=== PATIENT | female | born 1960 | race Caucasian/White ===

== ENCOUNTER → 2018-01-13 09:04 | Outpatient (CLI) | payer OTHER, SELFPAY ==
[2018-01-13 11:00] LABS: Anion Gap 6 (5-15); BUN 11 mg/dL (7-18); BUN/Creat Ratio 13.2 RATIO (10-20); Calcium,Total 8.9 mg/dL (8.5-10.1); Chloride 107 mmol/L (98-107); Creatinine, Serum 0.83 mg/dL (0.55-1.02); EST Glomerular Filtration Rate 75 mL/min (>60); Est Glom Filt Rate - Afr Amer 90 mL/min (>60); Glucose 109 mg/dL (74-106); Potassium 4.5 mmol/L (3.5-5.1); Sodium Level 142 mmol/L (136-145)
== END ==
PROVIDERS: Family Provider Family Medicine; PCP Family Medicine; Visit Provider Family Medicine
DX: I10 Essential (primary) hypertension (principal); E03.9 Hypothyroidism, unspecified
CPT/HCPCS: 36415; 80048; 84443

== ENCOUNTER → 2018-07-28 09:31 | Outpatient (CLI) | payer OTHER, SELFPAY ==
--- OUTSIDE RECORDS SUMMARY | 2018-09-22 04:23 | XMS RPT_ITS ---
:1960 Author Organization [facility] Care Team Providers Name Role Phone TESTTIM, IBRAHIMA Referring Unavailable TESTRAKE, IBRAHIMA Attending Unavailable ADI LERMA (PT) Attending Unavailable TESTRAKE, IBRAHIMA Referring Unavailable TESTRAKE, IBRAHIMA Attending Unavailable TESTRAKE, IBRAHIMA Referring Unavailable ADI LERMA (PT) Attending Unavailable TESTRAKE, IBRAHIMA Referring Unavailable GHANSHYAM SHANKAR (CNM) Referring Unavailable LISA TSANG (CERTIFIED ORTHOTIST/PEDORTHIST) Attending Unavailable Emerson Torres Attending Unavailable Emerson Torres Primary Care Unavailable Referred, Self Attending Unavailable Emerson Torres Primary Care Unavailable Emerson Torres Attending Unavailable Emerson Torres Primary Care Unavailable PROBLEMS PROBLEMS DATE TYPE CONDITION / CODE ATTENDING STATUS SOURCE 07/28/2018 Unknown 244.9 - Unspecified Emerson Torres Active [facility] 244.9(ICD-9) Repository 07/28/2018 Unknown E03.9 - Emerson Torres Active [place] Hypothyroidism, [facility] unspecified / Hospital E03.9(ICD-10) Repository 03/02/2018 Active Unknown / LISA TSANG Active [facility] UNK(Unknown) (CERTIFIED ORTHOTIST/PEDORTHIST) [facility] [place] Repository 02/07/2018 Active Encounter for other NA Active [facility] screening for [facility] malignant neoplasm [place] of breast / Repository Z12.39(ICD-10) 10/13/2017 Active Pain in right foot / NA Active [facility] M79.671(ICD-10) [facility] Repository PROCEDURES PROCEDURES No Procedure Records FoundRESULTS RESULTS THYROID STIM HORMONE Collected: 07/28/2018 Status: F Source: [place] (TSH) 9:32 AM [facility] REPOSITORY Order Comment: Order Date: 01/16/18 Order Info: 3016-3 - TSH TYPE CODE TESTS RESULT OUT OF RANGE REFERENCE UNITS LAB L501.9520 0.358-3.74 uIU/mL Normal TSH 2.90 Performed By: #### L501.9520 #### [facility] [address] [place], [address] CNOV Observed: 03/02/2018 Status: COMPLETED Source: [place] 8:30 AM [facility] REPOSITORY Office Visit (WOOB) NURA SONI ([id number]) 1960 F Date Time Provider Department 03/02/18 8:30 AM LISA TSANG (KD) [place] During your visit today, we recorded the following information about you: Blood pressure Weight Height 136/86 91.5 kg 1.568 m Lisa Tsang APRN.CNP 03/02/2018 9:17 AM Signed Nura Soni is a 57 year old who presents for her annual gynecologic exam without complaints. Daughter is peds DRAFTING TEACHER - graduated from [place] and moving to [place] for job. Postmenopausal: RONAN 2000 - uterus and ovaries removed HRT use: Vivelle dose History of abnormal pap: No Last mammogram: 2017 normal History of abnormal mammogram: No Sexually active: Yes Patient concerns for STD exposure: No. Time with current partner: long-term Pain with intercourse: No Postcoital bleeding: No Hot flashes: Yes, occasional Night sweats: Yes, occasional Vaginal dryness: Yes, uses lubricant Exercise: 3 times a week for 30 minutes. Type: walking Diet: tries to eat balanced diet Seatbelt use: Yes Obstetric History T2 L2 SAB2 TAB0 Ectopic0 Multiple0 Live Births0 PAST MEDICAL HISTORY Diagnosis Date - Broken ankle fracture - Broken foot - H/O thyroid nodule - Hypertension - Hypothyroid PAST SURGICAL HISTORY Procedure Laterality Date - HYSTEROSCOPY, DIAGNOSTIC (SEPARATE Hysteroscopy - PAST SURGICAL HISTORY OF 02/2013 repair foot/ankle fracture - REMOVAL ADENOIDS,PRIMARY,<12 Y/O Adenoidectomy - REMOVAL OF TONSILS,<12 Y/O Tonsillectomy - TOTAL ABDOM HYSTERECTOMY 2000 Hysterectomy, [facility] FAMILY HISTORY Problem Relation Age of Onset - Adopted: Yes - Other [Other] [OTHER] adopted unknown SOCIAL HISTORY Social History Substance Use Topics - Smoking status: Never Smoker - Smokeless tobacco: Never Used - Alcohol use 36.0 oz/week Comment: Occasionally REVIEW OF SYSTEMS Abdomen: No abdominal pain, nausea, vomiting, diarrhea, or constipation. No bloating, early satiety, indigestion, or increased flatulence. Bladder: No dysuria, gross hematuria, urinary frequency, urinary urgency, or incontinence Breast: No breast lumps, nipple d/c, overlying skin changes, redness or skin retraction Allergies and current medication updated:Yes EXAM: BP 136/86 Ht 5' 1.75 (1.57m) Wt 201 lb 12.8 oz (91.5kg) BMI 37.23 kg/(m2). GENERAL: pleasant, female in no apparent distress HEENT: Normocephalic, atraumatic, mucus membranes moist and no lesions NECK: Supple, full range of motion, no adenopathy and enlarged thyroid DERMATOLOGY: Normal, without lesions, non-icteric and non-hirsute BREAST: soft, non-tender, symmetric, no dominant mass, normal nipple-areolar complex, no lymphadenopathy and no nipple discharge CHEST: Normal inspiratory effort ABDOMEN: soft, non-tender and no masses PELVIC: external genitalia normal, normal Bartholin's glands, urethra, [place]'s glands, no vulvar lesions, physiologic discharge present, normal appearing perineal body and perianal region, cervix surgically absent BIMANUAL: no adnexal masses, non-tender and uterus surgically absent RECTOVAGINAL: deferred. NEURO: alert and oriented x3,exam grossly non-focal EXTREMITIES: normal ASSESSMENT/PLAN: 1) Health maintenance: Pap/HPV screening no longer needed Mammogram up to date Vivelle HRT - Low dose, discussed gradually attempt to discontinue, may cut. Vaginal dryness - Lubricant and Replens vaginal lubricant Nutrition, exercise and routine health maintenance exams reviewed. Calcium/Vitamin D supplementation information provided. Colon cancer screening: up to date with screening 2017 - 10 year interval 2) Follow up one year or sooner as needed Lisa Tsang APRN.CERTIFIED ORTHOTIST/PEDORTHIST Referring Provider: SELF [200] Allergies As of Date: 03/02/2018 (No Known Allergies) Date Reviewed: 03/02/2018 Reviewed by: Lisa (Kd) Trinh - Fully Assessed Reason for Visit: Well Woman [1463] Primary Visit Diagnosis:Encounter for gynecological examination (general) (routine) without abnormal findings [Z01.419] Other Visit Diagnosis:Postmenopausal HRT (hormone replacement therapy) [Z79.890] Order(s):estradiol (VIVELLE-DOT) 0.025 mg/24 hrApply 1 Patch as directed twice a week. ONE PER SKIN TWICE A WEEKDisp: 24 PatchRfl: 4 Prescriptions as of 03/02/2018 Sig: ESTRADIOL 0.025 MG/24 HR SEMI* Apply 1 Patch as directed twi* LEVOTHYROXINE 100 MCG TABLET Take 100 mcg by mouth daily b* LISINOPRIL 10 MG TABLET Take 10 mg by mouth once jazmin* CHOLECALCIFEROL (VITAMIN D3) * Take 1 tablet by mouth once d* * ASPIR-LOW 81 MG TABLET,DELAYE* Take one(1) tablet daily. 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 Sig: Apply 1 Patch as directed twice a week. ONE PER SKIN TWICE A WEEK Medications Discontinued During This Encounter multivitamin (DAILY VITAMIN) tablet 0 02/28/2017 03/02/2018 Class: Historical Med Route: ORAL Sig: Take 1 tablet by mouth once daily. Disc: Reason for discontinue is not on file. methylPREDNISolone (MEDROL, CHRISTINA,) 4 * 1 Pa* 0 10/13/2017 03/02/2018 Sig: Take as directed Patient not taking: Reported on 03/02/2018 Disc: Reason for discontinue is not on file. estradiol (VIVELLE-DOT) 0.025 mg/24 * 24 P* 4 02/28/2017 03/02/2018 Route: TRANSDERMAL Sig: Apply 1 Patch as directed twice a week. ONE PER SKIN TWICE A WEEK Disc: Reason for discontinue is not on file. Disposition: Return in 1 year (on 03/02/2019) for Annual Exam. Follow-up and Disposition History Recorded Encounter Status:Closed by ILSA TSANG on 03/02/18 PROGRESS Observed: 03/02/2018 Status: COMPLETED Source: [place] 8:28 AM [facility] REPOSITORY HNO ID: [id number] Author: Lisa Tsang Service: (none) Author Type: Nurse Practitioner Type: Progress Notes Filed: 03/02/2018 9:17 AM Note Text: Nura Soni is a 57 year old who presents for her annual gynecologic exam without complaints. Daughter is peds DRAFTING TEACHER - graduated from [place] and moving to [place] for job. Postmenopausal: RONAN 2000 - uterus and ovaries removed HRT use: Vivelle dose History of abnormal pap: No Last mammogram: 2017 normal History of abnormal mammogram: No Sexually active: Yes Patient concerns for STD exposure: No. Time with current partner: long-term Pain with intercourse: No Postcoital bleeding: No Hot flashes: Yes, occasional Night sweats: Yes, occasional Vaginal dryness: Yes, uses lubricant Exercise: 3 times a week for 30 minutes. Type: walking Diet: tries to eat balanced diet Seatbelt use: Yes Obstetric History T2 L2 SAB2 TAB0 Ectopic0 Multiple0 Live Births0 PAST MEDICAL HISTORY Diagnosis Date - Broken ankle fracture - Broken foot - H/O thyroid nodule - Hypertension - Hypothyroid PAST SURGICAL HISTORY Procedure Laterality Date - HYSTEROSCOPY, DIAGNOSTIC (SEPARATE Hysteroscopy - PAST SURGICAL HISTORY OF 02/2013 repair foot/ankle fracture - REMOVAL ADENOIDS,PRIMARY,<12 Y/O Adenoidectomy - REMOVAL OF TONSILS,<12 Y/O Tonsillectomy - TOTAL ABDOM HYSTERECTOMY 2000 Hysterectomy, [facility] FAMILY HISTORY Problem Relation Age of Onset - Adopted: Yes - Other [Other] [OTHER] adopted unknown SOCIAL HISTORY Social History Substance Use Topics - Smoking status: Never Smoker - Smokeless tobacco: Never Used - Alcohol use 36.0 oz/week Comment: Occasionally REVIEW OF SYSTEMS Abdomen: No abdominal pain, nausea, vomiting, diarrhea, or constipation. No bloating, early satiety, indigestion, or increased flatulence. Bladder: No dysuria, gross hematuria, urinary frequency, urinary urgency, or incontinence Breast: No breast lumps, nipple d/c, overlying skin changes, redness or skin retraction Allergies and current medication updated:Yes EXAM: BP 136/86 Ht 5' 1.75 (1.57m) Wt 201 lb 12.8 oz (91.5kg) BMI 37.23 kg/(m2). GENERAL: pleasant, female in no apparent distress HEENT: Normocephalic, atraumatic, mucus membranes moist and no lesions NECK: Supple, full range of motion, no adenopathy and enlarged thyroid DERMATOLOGY: Normal, without lesions, non-icteric and non-hirsute BREAST: soft, non-tender, symmetric, no dominant mass, normal nipple-areolar complex, no lymphadenopathy and no nipple discharge CHEST: Normal inspiratory effort ABDOMEN: soft, non-tender and no masses PELVIC: external genitalia normal, normal Bartholin's glands, urethra, [place]'s glands, no vulvar lesions, physiologic discharge present, normal appearing perineal body and perianal region, cervix surgically absent BIMANUAL: no adnexal masses, non-tender and uterus surgically absent RECTOVAGINAL: deferred. NEURO: alert and oriented x3,exam grossly non-focal EXTREMITIES: normal ASSESSMENT/PLAN: 1) Health maintenance: Pap/HPV screening no longer needed Mammogram up to date Vivelle HRT - Low dose, discussed gradually attempt to discontinue, may cut. Vaginal dryness - Lubricant and Replens vaginal lubricant Nutrition, exercise and routine health maintenance exams reviewed. Calcium/Vitamin D supplementation information provided. Colon cancer screening: up to date with screening 2017 - 10 year interval 2) Follow up one year or sooner as needed RICHARD Sen Observed: 02/07/2018 Status: COMPLETED Source: [place] 4:51 PM [facility] REPOSITORY HNO ID: [id number] Author: Mammography Coordinator Service: (none) Author Type: Physician Type: Letter Filed: 02/08/2018 11:32 PM Note Text: February 07, 2018 PID: [id number] Nura Soni [address] [place] [address] Dear Ms. Soni, We are pleased to inform you that the results of your recent breast imaging exam on 02/07/2018 are normal. Your mammogram demonstrates that you have dense breast tissue, which could hide abnormalities. Dense breast tissue, in and of itself, is a relatively common condition. Therefore, this information is not provided to cause undue concern; rather, it is to raise your awareness and promote discussion with your health care provider regarding the presence of dense breast tissue in addition to other risk factors. Early detection of cancer is very important. We also understand recommendations regarding breast cancer screening are controversial. Please discuss with your primary care provider which strategy is best for you and whether a mammogram is right for you. Your imaging studies and report will be kept on file at [facility] as part of your permanent medical record and are available for your continuing care. Thank you for allowing us to help in meeting your health care needs. Sincerely, Dr. Izaguirre Interpreting Radiologist [facility] (Normal over 40) [facility] SCREENING Observed: 02/07/2018 Status: F Source: [place] 7:21 AM [facility] REPOSITORY * * *Final Report* * * DATE OF EXAM: Feb 07 2018 7:21AM [facility] 0581 - [facility] SCREENING / PROCEDURE REASON: Encounter for other screening for malignant neoplasm of breast * * * * Physician Interpretation * * * * RESULT: #[id number] - [facility] SCREENING BILATERAL DIGITAL SCREENING MAMMOGRAM WITH CAD: 02/07/2018 HISTORY: Screening Mammogram - patient reports NO breast symptoms /Priors available for comparison. RESULT: TECHNIQUE: The study was acquired using full field digital technology and interpreted from soft copy. Current study was also evaluated with a Computer Aided Detection (CAD). Comparison is made to exams dated: 01/17/2017 mammogram, 01/13/2016 mammogram, 01/09/2015 mammogram, 12/31/2013 mammogram, 12/26/2012 mammogram, and 11/09/2011 mammogram - [facility]. The tissue of both breasts is heterogeneously dense. This may lower the sensitivity of mammography. The parenchymal pattern and appearance of the breasts is unchanged from the prior exams taking into account differences in positioning and technique. No significant masses, calcifications, or other findings are seen in either breast. There has been no significant interval change. IMPRESSION: NEGATIVE There is no mammographic evidence of malignancy. A 1 year screening mammogram is recommended. Nydia velez/fco:02/07/2018 16:51:41 Hotel Front Desk Clerk: Melida COPELAND)(Christen), [facility] letter sent: Normal over 40 Mammogram BI-RADS: 1 Negative Hand Booked Folder And Stitcher: Fco Transcribe Date/Time: Feb 07 2018 7:09A Dictated by: NYDIA IZAGUIRRE MD This examination was interpreted and the report reviewed and electronically signed by: NYDIA IZAGUIRRE MD on Feb 07 2018 4:51PM EST [id number] BASIC METABOLIC Collected: 01/13/2018 Status: F Source: [place] PROFILE ([facility]) 9:07 AM [facility] REPOSITORY Order Comment: Order Date: 07/08/17 Order Info: [id number] - BMP Order Info: 3016-3 - TSH TYPE CODE TESTS RESULT OUT OF RANGE REFERENCE UNITS LAB L501.0100 74-106 mg/dL High GLU 109 Result Comment: Fasting Glucose result from 100 to 125 mg/dL suggests IMPAIRED HOMEOSTASIS per A.D.A. criteria. Please note revised GLUCOSE reference range effective 2017. LAB L501.1000 7-18 mg/dL Normal BUN 11 LAB L501.1100 0.55-1.02 mg/dL Normal CREAT,SERUM 0.83 Result Comment: The validity of the calculated GFR AND GFRAA in patients over 70 years has not been determined. Clinical correlation is essential. LAB L501.1110 >60 mL/min Normal EST GFR 75 Result Comment: Non- GFR Calc LAB L501.1115 >60 mL/min Normal EST GFR - AA 90 Result Comment: GFR Calc LAB L501.1300 10-20 RATIO Normal BUN/CRE 13.2 LAB L501.2200 8.5-10.1 mg/dL CA Normal 8.9 LAB L501.5300 136-145 mmol/L NA Normal 142 LAB L501.5600 3.5-5.1 mmol/L K Normal 4.5 LAB L501.5900 98-107 mmol/L CL Normal 107 LAB L501.6100 21.0-32.0 mmol/L Normal CO2 29.0 LAB L501.6200 5-15 Normal GAP 6 Performed By: #### L500.2500, L501.9520 #### [facility] [address] [place], [place], [address] THYROID STIM HORMONE Collected: 01/13/2018 Status: F Source: [place] (TSH) 9:07 AM [facility] REPOSITORY Order Comment: Order Date: 07/08/17 Order Info: [id number] - BMP Order Info: 3016-3 - TSH TYPE CODE TESTS RESULT OUT OF RANGE REFERENCE UNITS LAB L501.9520 0.358-3.74 uIU/mL High TSH 4.60 Performed By: #### L500.2500, L501.9520 #### [facility] [address] [facility] [place], [address] PROGRESS Observed: 11/25/2017 Status: COMPLETED Source: [place] 10:[address] [facility] [place] REPOSITORY HNO ID: [id number] Author: Adi (Pt) Maria Guadalupe Service: (none) Author Type: Physical Therapist Type: Progress Notes Filed: 11/25/2017 10:49 AM Note Text: [facility] DME ISSUE NOTE Patient identified by name and date: Yes SUBJECTIVE: Nura Soni is a 57 year old female seen today for fitting and pickup of custom foot orthotics. DME Delivery: Pt was educated on wear schedule and care of custom foot orthotics. Pt was educated on the option of having orthotics refurbished as needed in the future as long as shell is performing it's intended function well. Pt was educated on approximate cost of refurbishing orthotics and an approximate time frame when this might be necessary. Pt was urged to follow the wear schedule and to call with any questions or concerns. Pt was instructed to start with wearing orthotics one hour the first day and then to add one hour of wear time per day until realtime captioner wear is achieved. Pt was educated on how to remove insoles from shoes and then place orthotics in shoes. The fit of orthotics was assessed with pt standing, with and without shoes. The comfort of orthotics was assessed with pt standing and walking with orthotics in shoes. Pt denied any rubbing or pinching and felt that fit of custom orthotics was correct. Contact information for this therapist was provided to patient. Custom biomechanical foot orthotics with serial number: #[id number] were issued to patient and proof of receipt form signed by pt and therapist. All specifications for custom foot orthotics can be found in orthotic evaluation visit note. Education: Learning preferences: Explanation, Demonstration, Performance and Printed Materials Barriers: No barriers Learning/educational needs: Brace Fit Body mechanics Education Provided: See Treatment Below Audience: Patient Method of education: Explanation, Demonstration, Performance and Printed Materials Response: Verbalized understanding Planned Interventions: Follow up as needed for brace fitting/issues. Billing:[facility]: Equipment: [id number] pair of custom foot orthotics No charge for time. 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] Other Visit Diagnoses:Metatarsalgia of right foot [M77.41] Right foot pain [M79.671] Allergies As of Date: 11/25/2017 (No Known Allergies) Date Reviewed: 11/24/2017 Reviewed by: Denise Faith RN - Fully Assessed Prescriptions as of 11/25/2017 Sig: METHYLPREDNISOLONE 4 MG TABLE* Take as directed LEVOTHYROXINE 100 MCG TABLET Take 100 mcg by mouth daily b* LISINOPRIL 10 MG TABLET Take 10 mg by mouth once jazmin* MULTIVITAMIN TABLET Take 1 tablet by mouth once d* CHOLECALCIFEROL (VITAMIN D3) * Take 1 tablet by mouth once d* ESTRADIOL 0.025 MG/24 HR SEMI* Apply 1 Patch as directed twi* * ASPIR-LOW 81 MG TABLET,DELAYE* Take one(1) tablet daily. * FOLIC ACID 400 MCG TABLET Three tablets one time daily * CALCIUM 600 600 MG TABLET Take one(1) tablet twice jazmin* * DAILY MULTIVITAMIN TABLET Progress Notes: Adi Lerma PT 11/25/2017 10:49 AM Signed [facility] DME ISSUE NOTE Patient identified by name and date: Yes SUBJECTIVE: Nura Soni is a 57 year old female seen today for fitting and pickup of custom foot orthotics. DME Delivery: Pt was educated on wear schedule and care of custom foot orthotics. Pt was educated on the option of having orthotics refurbished as needed in the future as long as shell is performing it's intended function well. Pt was educated on approximate cost of refurbishing orthotics and an approximate time frame when this might be necessary. Pt was urged to follow the wear schedule and to call with any questions or concerns. Pt was instructed to start with wearing orthotics one hour the first day and then to add one hour of wear time per day until realtime captioner wear is achieved. Pt was educated on how to remove insoles from shoes and then place orthotics in shoes. The fit of orthotics was assessed with pt standing, with and without shoes. The comfort of orthotics was assessed with pt standing and walking with orthotics in shoes. Pt denied any rubbing or pinching and felt that fit of custom orthotics was correct. Contact information for this therapist was provided to patient. Custom biomechanical foot orthotics with serial number: #[id number] were issued to patient and proof of receipt form signed by pt and therapist. All specifications for custom foot orthotics can be found in orthotic evaluation visit note. Education: Learning preferences: Explanation, Demonstration, Performance and Printed Materials Barriers: No barriers Learning/educational needs: Brace Fit Body mechanics Education Provided: See Treatment Below Audience: Patient Method of education: Explanation, Demonstration, Performance and Printed Materials Response: Verbalized understanding Planned Interventions: Follow up as needed for brace fitting/issues. Billing:[facility]: Equipment: L3020 pair of custom foot orthotics No charge for time. Total time: 15 minutes Adi Lerma PT Letter Text [address] [place] [address] PROOF OF ORDER AND PRESCRIPTION RECEIPT November 25, 2017 Quantity: 1 Archana Soni Item(s): Custom Foot Orthotics- L3020 [id number] I have received this date: November 25, 2017. That has been prescribed by: Dr. Ibrahima Daily I have been informed that I can purchase this product elsewhere, however, I have elected to receive the above listed new durable medical equipment as prescribed. I have been informed that in the event I received Diabetic Shoes, they can not be returned and are not refundable. I have been given instruction on the use of the custom foot orthotic device indicated above and understand the intended purpose as well as limitations of the device. I also understand that the [facility] will not be responsible for any modifications to this device not ordered by the prescribing freight representative(s) of the [facility]. I understand that should I have any additional questions or concerns to call the telephone number listed above for assistance Signature of Patient/Recipient or Authorized Quality Audit Representative Date Signature of [facility] Quality Audit Representative Date [employer] Federal Guidelines: [email or web address] 11/29/05 A copy of this letter has been given to the above mentioned patient. PROGRESS Observed: 11/24/2017 Status: COMPLETED Source: [place] 7:[address] [facility] REPOSITORY HNO ID: [id number] Author: Ibrahima Daily Service: (none) Author Type: Physician Type: Progress Notes Filed: 11/24/2017 8:02 AM Note Text: Follow up podiatric office visit for: Chief Complaint: This 57 year old who presents for follow up:right foot pain. Patient had pain to lateral aspect of right foot. She has been using otc inserts and took the oral steroid. She feels the over the counter insert has helped. She is scheduled to get custom inserts tomorrow. She states that there is no pain to right foot. PAIN EVALUATION No data found. No results found for: HBA1C PCP: Emerson Torres MD PAST MEDICAL HISTORY Diagnosis Date - Broken ankle fracture - Broken foot - H/O thyroid nodule - Hypertension - Hypothyroid Current Outpatient Prescriptions: methylPREDNISolone (MEDROL, CHRISTINA,) 4 mg Dose-Pack Take as directed levothyroxine (SYNTHROID) 100 mcg tablet Take 100 mcg by mouth daily before breakfast. lisinopril (ZESTRIL, PRINIVIL) 10 mg tablet Take 10 mg by mouth once daily. multivitamin (DAILY VITAMIN) tablet Take 1 tablet by mouth once daily. cholecalciferol (VITAMIN D-3) 5,000 unit tab Take 1 tablet by mouth once daily. estradiol (VIVELLE-DOT) 0.025 mg/24 hr Apply 1 Patch as directed twice a week. ONE PER SKIN TWICE A WEEK aspirin(ASPIR-LOW 81 MG TAB) Take one(1) tablet daily. FOLIC ACID 400 MCG TAB Three tablets one time daily CALCIUM 600 600 MG TAB Take one(1) tablet twice daily. DAILY MULTIVITAMIN TAB No current facility-administered medications for this visit. ALLERGIES No Known Allergies PAST SURGICAL HISTORY Procedure Laterality Date - HYSTEROSCOPY, DIAGNOSTIC (SEPARATE Hysteroscopy - PAST SURGICAL HISTORY OF 02/2013 repair foot/ankle fracture - REMOVAL ADENOIDS,PRIMARY,<12 Y/O Adenoidectomy - REMOVAL OF TONSILS,<12 Y/O Tonsillectomy - TOTAL ABDOM HYSTERECTOMY 2000 Hysterectomy, KAMLA Physical Exam: Constitutional: Pt is a well developed 57 year old female who is alert, oriented, cooperative and in no apparent distress. OBJECTIVE: NVSI unchanged from previous visit. Dermatological: Nails 1-5 b/l are normal. Webspaces clean and dry 1-4 b/l. Skin appears well hydrated and supple. good color, texture, turgor. No open lesions present. No callosities present. Musculoskeletal/Orthopaedic: Patient has no pain to palpation of right foot rom of right foot and ankle is full without pain High arch noted to right foot ASSESSMENT: (Q66.7) Pes cavus of right foot (primary encounter diagnosis) (M79.671) Pain in right foot PLAN: 1. History and physical examination completed today. 2. Patient pain has resolved with otc inserts and oral steroid. She has no pain currently. She is scheduled to receive custom inserts tomorrow. She was educated on proper breaking in of the orthotics. 3. If pain remains absent, she can f/u prn. Ibrahima Daily DPM CNOV Observed: 11/24/2017 Status: COMPLETED Source: [place] 7:40 AM [facility] REPOSITORY Office Visit (PODIWS) NURA SONI ([id number]) 1960 F Date Time Provider Department 11/24/17 7:40 AM IBRAHIMA DAILY During your visit today, we recorded the following information about you: Ibrahima Daily DPM 11/24/2017 8:02 AM Signed Follow up podiatric office visit for: Chief Complaint: This 57 year old who presents for follow up:right foot pain. Patient had pain to lateral aspect of right foot. She has been using otc inserts and took the oral steroid. She feels the over the counter insert has helped. She is scheduled to get custom inserts tomorrow. She states that there is no pain to right foot. PAIN EVALUATION No data found. No results found for: HBA1C PCP: Emerson Torres MD PAST MEDICAL HISTORY Diagnosis Date - Broken ankle fracture - Broken foot - H/O thyroid nodule - Hypertension - Hypothyroid Current Outpatient Prescriptions: methylPREDNISolone (MEDROL, CHRISTINA,) 4 mg Dose-Pack Take as directed levothyroxine (SYNTHROID) 100 mcg tablet Take 100 mcg by mouth daily before breakfast. lisinopril (ZESTRIL, PRINIVIL) 10 mg tablet Take 10 mg by mouth once daily. multivitamin (DAILY VITAMIN) tablet Take 1 tablet by mouth once daily. cholecalciferol (VITAMIN D-3) 5,000 unit tab Take 1 tablet by mouth once daily. estradiol (VIVELLE-DOT) 0.025 mg/24 hr Apply 1 Patch as directed twice a week. ONE PER SKIN TWICE A WEEK aspirin(ASPIR-LOW 81 MG TAB) Take one(1) tablet daily. FOLIC ACID 400 MCG TAB Three tablets one time daily CALCIUM 600 600 MG TAB Take one(1) tablet twice daily. DAILY MULTIVITAMIN TAB No current facility-administered medications for this visit. ALLERGIES No Known Allergies PAST SURGICAL HISTORY Procedure Laterality Date - HYSTEROSCOPY, DIAGNOSTIC (SEPARATE Hysteroscopy - PAST SURGICAL HISTORY OF 02/2013 repair foot/ankle fracture - REMOVAL ADENOIDS,PRIMARY,ANDlt;11 Y/O Adenoidectomy - REMOVAL OF TONSILS,ANDlt;11 Y/O Tonsillectomy - TOTAL ABDOM HYSTERECTOMY 2000 Hysterectomy, TAHBSO Physical Exam: Constitutional: Pt is a well developed 57 year old female who is alert, oriented, cooperative and in no apparent distress. OBJECTIVE: NVSI unchanged from previous visit. Dermatological: Nails 1-5 b/l are normal. Webspaces clean and dry 1-4 b/l. Skin appears well hydrated and supple. good color, texture, turgor. No open lesions present. No callosities present. Musculoskeletal/Orthopaedic: Patient has no pain to palpation of right foot rom of right foot and ankle is full without pain High arch noted to right foot ASSESSMENT: (Q66.7) Pes cavus of right foot (primary encounter diagnosis) (M79.671) Pain in right foot PLAN: 1. History and physical examination completed today. 2. Patient pain has resolved with otc inserts and oral steroid. She has no pain currently. She is scheduled to receive custom inserts tomorrow. She was educated on proper breaking in of the orthotics. 3. If pain remains absent, she can f/u prn. Ibrahima Daily DPM Referring Provider: IBRAHIMA DAILY [[id number]] Allergies As of Date: 11/24/2017 (No Known Allergies) Date Reviewed: 11/24/2017 Reviewed by: Denise Faith RN - Fully Assessed Reason for Visit: Recheck [92] Cmt: 6 wk f/u R foot pain Primary Visit Diagnosis:Pes cavus of right foot [Q66.7] Other Visit Diagnosis:Pain in right foot [M79.671] Prescriptions as of 11/24/2017 Sig: METHYLPREDNISOLONE 4 MG TABLE* Take as directed LEVOTHYROXINE 100 MCG TABLET Take 100 mcg by mouth daily b* LISINOPRIL 10 MG TABLET Take 10 mg by mouth once jazmin* MULTIVITAMIN TABLET Take 1 tablet by mouth once d* CHOLECALCIFEROL (VITAMIN D3) * Take 1 tablet by mouth once d* ESTRADIOL 0.025 MG/24 HR SEMI* Apply 1 Patch as directed twi* * ASPIR-LOW 81 MG TABLET,DELAYE* Take one(1) tablet daily. 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 Follow-up and Disposition History Recorded Encounter Status:Closed by IBRAHIMA DAILY DPM on 11/24/17 PROGRESS Observed: 10/27/2017 Status: COMPLETED Source: [place] 3:[address] [facility] REPOSITORY HNO ID: [id number] Author: Adi (Claudio Lerma Service: (none) Author Type: Physical Therapist Type: Progress Notes Filed: 10/27/2017 4:57 PM Note Text: Episode Visit Count: 1 Therapist That Will Oversee The Plan Of Care: Adi Lerma PT Start of Care Date: 10/27/17 Onset Date: 10/06/17 Patient Identified by Name and Date of : Yes REHABILITATION AND SPORTS THERAPY PHYSICAL THERAPY EVALUATION PLAN OF CARE: Assessment: Nura Soni presents with the chief complaint of R foot pain that occurs with prolonged standing, prolonged walking and exercising. She presents with impairments of abnormal functional biomechanics of feet and ankles resulting in pain on R side with impact of exercise. She may benefit from skilled therapy services to improve functional biomechanics of B feet via custom foot orthotics. Prognosis: Excellent Excellent due to: current objective clinical presentation;acuteness of injury;good overall health status;positive past response to therapy;good support system/ coping skills Goals for Episode of Care: created on 10/27/17 through 12/08/17 Pt will be educated on proper wear schedule and care of custom biomechanical foot orthotics Pt will be provided with custom biomechanical B foot orthotics that improve foot and ankle biomechanics as intended with proper fit and function. Planned Interventions, Frequency, and Duration: Current Frequency: 1 visit Duration: 1 visit (fitting and pickle sorter of orthotics once they arrive.) Total Number of Visits Planned: 2 (evaluation and fitting visit) Patient to be see for Planned Treatment Interventions: Orthosis / DME;Patient/Family/Caregiver Education;Body Mechanics Training;Gait Training PLAN FOR NEXT VISIT: fitting and pickle sorter of custom orthotics Patient demonstrates good understanding of plan of care and treatment. The above goals and plan of care were discussed and agreed upon by patient/family. SUBJECTIVE: Nura Soni is a 57 year old female seen today for constant pain in dorsum of foot at met heads, along lateral border of R foot that is all aggravated by prlonged standing, walking and exercise. Functional Limitations: standing;walking (exercise) Prior Level of Function: Independent without limitations Patient Goals: resume exercise without pain Intake Information: Prescription present Previous Treatment: Self prescribed exercises (off the shelf orthotics from the past.) Pain Score: 1/10 (1/10 currently and 2-3/10 when aggravated) Pain Location: Foot - Right Description: Aching;Dull Frequency: Continuous (constant but varies in intensity) Post Treatment Pain Score: No Change Pain Location: Foot - Right OBJECTIVE MEASURES WITH LEVEL OF FUNCTION: Plantar Callus Pattern: Right:none significant Left: medial aspect of met head Supine: ROM: Ankle Dorsiflexion: Right: AROM:10 degrees and AROM Left:12 degrees Calcaneal eversion: Right: very limited Left: very limited Hallux dorsiflexion: Open chain right: >65 left: >65 Closed chain right: >9 left: >9 Alignment: Rest: Medial arch appearance: Right:High Left:High Equinus: Right:forefoot Left:forefoot Prone: Alignment: Subtalar neutral: Right: rearfoot: 6 degrees varus Forefoot:6 degrees varus Left: Rearfoot:2 degrees varus Forefoot: 4 degrees varus First Ray Position: Right: pf Left: pf First Ray Mobility: Right: semi-rigid Left:semi-rigid WEIGHT BEARING: Alignment: Rest: Medial arch appearance: Right: High Left High Calcaneal stance position: Right: rectus Left everted Knee position: Right: Straight Left Straight Subtalar Neutral: Medial arch appearance: Right High Left:High Calcaneal stance position: Right: inverted Left: rectus Forefoot position: Right: flat on ground Left: flat on ground Knee position: Right: straight Left straight Mobility: Hallux dorsiflexion Closed chain: Right: >9 Left >9 Midtarsal Mobility: (navicular drop) Right: hypo <6mm Left:hypo <6mm Rearfoot excursion: Right:4-6 norm Left: <4 hypo FUNCTIONAL EVALUATION: Balance(SL): ability/quality Right: N/T and no posting planned after discussion with referring provider Left: N/T and no posting planned after discussion with referring provider Gait Assessment: Walking: no deviations at this time Running: not tested but pt reports right foot pain Orthotic Design Request Shoe size: 7. Weight: 200 pounds. Orthotic (shell): Sport Polypropylene 4mm Plate Specifications: Heel Cup Deep (15mm), Device Width Bisect 1st Posting: right: none left: none Additions: none Padding: Type: Poron STD Thickness:1/8 Padding Length:heels to toes Accommodations: none Top Covers: Material: leatherette STD Length:to toes Classification of foot type: Forefoot equinus Education: Education Learning Preferences: Demonstration;Explanation;Performance;Printed Materials Barriers: None Learning/educational needs: Employee Relations Specialist;Gait Training;Plan of Care Education Provided: Yes, see treatment interventions for education provided Education Provided To: Patient Education Mode/Type: Demonstration;Explanation/Discussion Response to Education/Teach Back: States/Identifies;Requires Review/Additional Education TREATMENT: Evaluation Orthotics Management and Training: A thorough and complete biomechanical assessment completed and all results explained to pt in detail. Pt. was educated on the anatomy of affected area, possible source of symptoms and rationale for proposed treatment plan. A variety of different sized wedges were used as trials for posting at both forefoot and rearfoot. Pt ability with single leg stance and single leg squats was tested without wedges and compared to each trial with different size wedges. Once stability was achieved and biomechanics improved, wedge size recorded for future posting prescription. With patient prone, subtalar neutral position plaster casts were made of bilateral feet. These casts and and all supporting documentation was prepared for shipment to lab so that custom foot orthotics can be fabricated. Pt was educated on the process that we will follow once custom orthotics arrive in this department and all of the patient's questions were answered. Skilled Intervention: Clinical knowledge and skills required for custom orthotic fabrication and wearing schedule Patient/Family/Caregiver Education: Precautions, purpose and use of orthosis Discussed management of any symptoms related to wearing the orthosis Billing: [facility]: Evaluation - Moderate Complexity (87972) Orthotics Management and Training (20420): 1:1 time: 30 minutes (2 units: 23-37 mins) Total time: 75 minutes Adi Lerma PT CNTHERAPY Observed: 10/27/2017 Status: COMPLETED Source: [place] 2:45 PM [facility] REPOSITORY OT/PT/Speech Visit (PTWS) NURA SONI ([id number]) 1960 F Date Time Provider Department 10/27/17 2:45 PM ADI LERMAPT) PTWS Date Time Provider Department Center 10/27/2017 2:45 PM [id number], BRENT (PT) PTWS [facility] JAYASHREE Reason for Visit: PT Eval [517] Patient Education [91] Primary Visit Diagnosis:Metatarsalgia of right foot [M77.41] Other Visit Diagnoses: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 * FOLIC ACID 400 MCG TABLET Three tablets one time daily * CALCIUM 600 600 MG TABLET Take one(1) tablet twice jazmin* * DAILY MULTIVITAMIN TABLET Progress Notes: Adi Lerma PT 10/27/2017 4:57 PM Signed Episode Visit Count: 1 Therapist That Will Oversee The Plan Of Care: Adi Lerma PT Start of Care Date: 10/27/17 Onset Date: 10/06/17 Patient Identified by Name and Date of : Yes REHABILITATION AND SPORTS THERAPY PHYSICAL THERAPY EVALUATION PLAN OF CARE: Assessment: Nura Soni presents with the chief complaint of R foot pain that occurs with prolonged standing, prolonged walking and exercising. She presents with impairments of abnormal functional biomechanics of feet and ankles resulting in pain on R side with impact of exercise. She may benefit from skilled therapy services to improve functional biomechanics of B feet via custom foot orthotics. Prognosis: Excellent Excellent due to: current objective clinical presentation;acuteness of injury;good overall health status;positive past response to therapy;good support system/ coping skills Goals for Episode of Care: created on 10/27/17 through 12/08/17 Pt will be educated on proper wear schedule and care of custom biomechanical foot orthotics Pt will be provided with custom biomechanical B foot orthotics that improve foot and ankle biomechanics as intended with proper fit and function. Planned Interventions, Frequency, and Duration: Current Frequency: 1 visit Duration: 1 visit (fitting and pickle sorter of orthotics once they arrive.) Total Number of Visits Planned: 2 (evaluation and fitting visit) Patient to be see for Planned Treatment Interventions: Orthosis / DME;Patient/Family/Caregiver Education;Body Mechanics Training;Gait Training PLAN FOR NEXT VISIT: fitting and pickle sorter of custom orthotics Patient demonstrates good understanding of plan of care and treatment. The above goals and plan of care were discussed and agreed upon by patient/family. SUBJECTIVE: Nura Soni is a 57 year old female seen today for constant pain in dorsum of foot at met heads, along lateral border of R foot that is all aggravated by prlonged standing, walking and exercise. Functional Limitations: standing;walking (exercise) Prior Level of Function: Independent without limitations Patient Goals: resume exercise without pain Intake Information: Prescription present Previous Treatment: Self prescribed exercises (off the shelf orthotics from the past.) Pain Score: 1/10 (1/10 currently and 2-3/10 when aggravated) Pain Location: Foot - Right Description: Aching;Dull Frequency: Continuous (constant but varies in intensity) Post Treatment Pain Score: No Change Pain Location: Foot - Right OBJECTIVE MEASURES WITH LEVEL OF FUNCTION: Plantar Callus Pattern: Right:none significant Left: medial aspect of met head Supine: ROM: Ankle Dorsiflexion: Right: AROM:10 degrees and AROM Left:12 degrees Calcaneal eversion: Right: very limited Left: very limited Hallux dorsiflexion: Open chain right: >65 left: >65 Closed chain right: >9 left: >9 Alignment: Rest: Medial arch appearance: Right:High Left:High Equinus: Right:forefoot Left:forefoot Prone: Alignment: Subtalar neutral: Right: rearfoot: 6 degrees varus Forefoot:6 degrees varus Left: Rearfoot:2 degrees varus Forefoot: 4 degrees varus First Ray Position: Right: pf Left: pf First Ray Mobility: Right: semi-rigid Left:semi-rigid WEIGHT BEARING: Alignment: Rest: Medial arch appearance: Right: High Left High Calcaneal stance position: Right: rectus Left everted Knee position: Right: Straight Left Straight Subtalar Neutral: Medial arch appearance: Right High Left:High Calcaneal stance position: Right: inverted Left: rectus Forefoot position: Right: flat on ground Left: flat on ground Knee position: Right: straight Left straight Mobility: Hallux dorsiflexion Closed chain: Right: >9 Left >9 Midtarsal Mobility: (navicular drop) Right: hypo <6mm Left:hypo <6mm Rearfoot excursion: Right:4-6 norm Left: <4 hypo FUNCTIONAL EVALUATION: Balance(SL): ability/quality Right: N/T and no posting planned after discussion with referring provider Left: N/T and no posting planned after discussion with referring provider Gait Assessment: Walking: no deviations at this time Running: not tested but pt reports right foot pain Orthotic Design Request Shoe size: 7. Weight: 200 pounds. Orthotic (shell): Sport Polypropylene 4mm Plate Specifications: Heel Cup Deep (15mm), Device Width Bisect 1st Posting: right: none left: none Additions: none Padding: Type: Poron STD Thickness:1/8 Padding Length:heels to toes Accommodations: none Top Covers: Material: leatherette STD Length:to toes Classification of foot type: Forefoot equinus Education: Education Learning Preferences: Demonstration;Explanation;Performance;Printed Materials Barriers: None Learning/educational needs: Employee Relations Specialist;Gait Training;Plan of Care Education Provided: Yes, see treatment interventions for education provided Education Provided To: Patient Education Mode/Type: Demonstration;Explanation/Discussion Response to Education/Teach Back: States/Identifies;Requires Review/Additional Education TREATMENT: Evaluation Orthotics Management and Training: A thorough and complete biomechanical assessment completed and all results explained to pt in detail. Pt. was educated on the anatomy of affected area, possible source of symptoms and rationale for proposed treatment plan. A variety of different sized wedges were used as trials for posting at both forefoot and rearfoot. Pt ability with single leg stance and single leg squats was tested without wedges and compared to each trial with different size wedges. Once stability was achieved and biomechanics improved, wedge size recorded for future posting prescription. With patient prone, subtalar neutral position plaster casts were made of bilateral feet. These casts and and all supporting documentation was prepared for shipment to lab so that custom foot orthotics can be fabricated. Pt was educated on the process that we will follow once custom orthotics arrive in this department and all of the patient's questions were answered. Skilled Intervention: Clinical knowledge and skills required for custom orthotic fabrication and wearing schedule Patient/Family/Caregiver Education: Precautions, purpose and use of orthosis Discussed management of any symptoms related to wearing the orthosis Billing: [facility]: Evaluation - Moderate Complexity (87936) Orthotics Management and Training (94967): 1:1 time: 30 minutes (2 units: 23-37 mins) Total time: 75 minutes Adi Lerma PT PROGRESS Observed: 10/13/2017 Status: COMPLETED Source: [place] 8:[address] [facility] [place] REPOSITORY HNO ID: [id number] Author: Ibrahima Daily Service: (none) Author Type: Physician Type: Progress Notes Filed: 10/13/2017 9:54 AM Note Text: Initial Podiatric Office Visit: Chief Complaint: This 57 year old female who presents with chief complaint:right foot pain HPI Patient presents to clinic for evaluation of right foot pain. She complains of pain to the plantar lateral aspect of her right foot. She denies any injury. Patient states the pain is a constant pain that varies in intensity. The pain is 1-3/10. She states that she is unable to walk barefoot because of the pain. She was using a treadmill but is unable to do the pain. She is only able to do the bike. Patient has tried alleve bid which she was taking for her left wrist. She states the alleve did help with her wrist but did not help with the foot pain. She takes ibuprofen at night which helps slightly. She does have hx of fractured ankle requiring orif 4-5 years ago. Patient does on occasion experience pain in the ankle but it is not horrible. PAIN EVALUATION 10/13/2017 Pain Score: 1 1-3/10 Pain Location: Foot-Right Description: Aching;Sharp Duration Amount of Time: 2 Duration Units: Weeks Frequency: Continuous Intervention: Relaxation;Other: See comment rest, supportive shoes No results found for: HBA1C PCP: Emerson Torres MD PAST MEDICAL HISTORY Diagnosis Date - Broken ankle fracture - Broken foot - H/O thyroid nodule - Hypertension - Hypothyroid Current Outpatient Prescriptions: levothyroxine (SYNTHROID) 100 mcg tablet Take 100 mcg by mouth daily before breakfast. lisinopril (ZESTRIL, PRINIVIL) 10 mg tablet Take 10 mg by mouth once daily. cholecalciferol (VITAMIN D-3) 5,000 unit tab Take 1 tablet by mouth once daily. estradiol (VIVELLE-DOT) 0.025 mg/24 hr Apply 1 Patch as directed twice a week. ONE PER SKIN TWICE A WEEK aspirin(ASPIR-LOW 81 MG TAB) Take one(1) tablet daily. FOLIC ACID 400 MCG TAB Three tablets one time daily CALCIUM 600 600 MG TAB Take one(1) tablet twice daily. DAILY MULTIVITAMIN TAB multivitamin (DAILY VITAMIN) tablet Take 1 tablet by mouth once daily. No current facility-administered medications for this visit. ALLERGIES No Known Allergies PAST SURGICAL HISTORY Procedure Laterality Date - HYSTEROSCOPY, DIAGNOSTIC (SEPARATE Hysteroscopy - PAST SURGICAL HISTORY OF 02/2013 repair foot/ankle fracture - REMOVAL ADENOIDS,PRIMARY,<11 Y/O Adenoidectomy - REMOVAL OF TONSILS,<12 Y/O Tonsillectomy - TOTAL ABDOM HYSTERECTOMY 2000 Hysterectomy, [facility] FAMILY HISTORY Problem Relation Age of Onset - Adopted: Yes - Other [Other] [OTHER] adopted unknown Social History Marital status: Spouse name: PARTH Years of education: Number of children: 2 Occupational History Occupation Employer Comment [employer] Social History Main Topics Smoking status: Never Smoker Smokeless status: Never Used Alcohol use: Yes 36.0 oz/week Comment: Occasionally Drug use: No Sexual activity: Yes Partners with: Male control/protection: Surgical Comment: hysterectomy REVIEW OF SYSTEMS GENERAL: Negative for Malaise, significant weight loss, fever RESPIRATORY: Negative for cough, wheezing and shortness of breath CARDIOVASCULAR: Negative for chest pain, leg swelling and palpitations GI: Negative for abdominal discomfort, blood in stools or black stools and change in bowel habits : Negative for dysuria, frequency and incontinence MUSCULOSKELETAL: Negative for joint pain or swelling, back pain, and muscle pain. SKIN: Negative for lesions, rash, and itching. HEMATOLOGY/LYMPHOLOGY Negative for prolonged bleeding, bruising easily, and swollen nodes. ENDOCRINE: Negative for cold or heat intolerance, polyuria, polydipsia and goiter. NEURO: negative Physical Exam: Constitutional: Pt is a well developed 57 year old female who is alert, oriented and cooperative Eyes: Following during examination. No redness or drainage. Respiratory: RR normal and nonlabored. Even breathing. No evidence of distress or shortness of breath. Psychology: Patient is engaged during conversation. Normal affect and mood. Does not appear depressed or anxious during encounter. Vascular: Dorsalis pedis and posterior tibial pulses palpable as b/l Capillary Fill time < 5 seconds to digits 1-5 b/l Skin temperature warm to warm proximal to distal b/l Hair growth present to digits Neurological: intact light touch/epicritic sensation Vibratory sensation intact to hallux b/l intact protective sensation no significant neurological deficits Dermatological: Nails 1-5 b/l appear normal. Webspaces clean and dry 1-4 b/l. Skin appears well hydrated and supple. good color, texture, turgor. No open lesions present. No callosities present. Musculoskeletal/Orthopaedic: Patient has pain to palpation of right lateral 5th metatarsal Foot type is high arch b/l structurally AJ ROM is full with knee extended and flexed 1st MPJ is full when loaded and no pain or crepitus are noted with ROM. MTJ, STJ are full and free of pain and crepitus. +5/5 muscle strength dorsiflexion, plantarflexion, inversion, eversion b/l Radiographs: 3 views right foot ordered October 13, 2017: I have personally reviewed and interpreted these XR myself: There is high arch. There is retained hardware from ankle orif ASSESSMENT: (M77.41) Metatarsalgia of right foot (primary encounter diagnosis) (Q66.7) Pes cavus of right foot (M79.671) Pain in right foot PLAN: 1. History and physical examination performed. 2. XR reviewed with patient and interpreted today 3. Discussed pain of right foot. Discussed source of pain from high arch. Recommend oral steroid, continued stretching, icing x 10 min bid. Custom orthotics prescribed. She can use otc insert until she receives custom orthotic. 4. F/u in one month Ibrahima Daily DPM PROGRESS Observed: 10/13/2017 Status: COMPLETED Source: [place] 7:50 AM [facility] REPOSITORY HNO ID: [id number] Author: Sonal (Rt) Clint Torres Service: (none) Author Type: Head Teacher Type: Progress Notes Filed: 10/13/2017 7:51 AM Note Text: Radiology Service Progress Note PATIENT NAME: Nura Soni DATE OF SERVICE: October 13, 2017 TIME: 7:50 AM PATIENT IDENTITY VERIFICATION COMPLETED USING TWO (2) METHODS: Patient confirmed name verbally and Date of . PATIENT GENDER DATA: Female. status: : No status: NO. PATIENT RELEVANT IMPLANT DATA REVIEWED: Not Applicable RADIOLOGY DEPARTMENT: General X-ray: Exam(s) Completed: Lower Extremity X-Ray(s): Foot, Right and Wt. Bearing: PERIPHERAL IV DATA: Not applicable SIGNED BY: RT Shamir October 13, 2017 7:50 AM XR FOOT 3V AP/LAT/OBL Observed: 10/13/2017 Status: F Source: [facility] 7:40 AM [facility] REPOSITORY * * *Final Report* * * DATE OF EXAM: Oct 13 2017 7:40AM [id number] - XR FOOT 3V AP/LAT/OBL RT / PROCEDURE REASON: Pain in right foot * * * * Physician Interpretation * * * * HISTORY: 57-YEAR-OLD FEMALE WITH Pain in right foot . right planter foot pain in the arch for several months. no recent injury. TECHNIQUE: XR FOOT 3V AP/LAT/OBL RT Laterality: RIGHT Number of different views (projections): 3 COMPARISON: None RESULT: Borderline pes cavus. Remote healed fractures with open reduction internal fixation of medial, lateral and posterior malleolus. Mild asymmetric narrowing of the talonavicular joint. No acute fracture. IMPRESSION: NO ACUTE BONY ABNORMALITY. Hand Booked Folder And Stitcher: PSCB Transcribe Date/Time: Oct 13 2017 9:47A Dictated by : MATIAS YEBOAH MD This examination was interpreted and the report reviewed and electronically signed by: MATIAS YEBOAH MD on Oct 13 2017 9:49AM EST [id number] ALLERGIES ALLERGIES DATE TYPE / CODE NAME / CODE REACTION SEVERITY SOURCE Drug NO KNOWN [facility] Class/32041 ALLERGIES [facility] 1003(SNOMED Repository CT) ENCOUNTERS ENCOUNTERS ADMIT/DISCHARGE ACCOUNT ADMITTING ENCOUNTER LOCATION SOURCE NUMBER CLASS 07/28/[id number] [facility] ing:MFPLAB Repository 06/26/[id number] [facility] ing:MASS Repository 03/02/2018/03/03/20 [id number] Ambulatory [address] Repository 02/07/2018/02/08/20 [id number] Ambulatory [address] Repository 01/13/[id number] [facility] ing:MFPLAB Repository 11/25/2017/11/29/19 [id number] Ambulatory [address] Repository 11/24/2017/11/26/19 [id number] Ambulatory [address] Repository 10/27/2017/11/01/19 [id number] Ambulatory [address] Repository 10/13/2017/10/13/19 [id number] Ambulatory [address] Repository 10/13/2017/10/13/19 [id number] Ambulatory [address] Repository PAYERS PAYERS ENCOUNTER GUARANTOR PAYER SUBSCRIBER SOURCE 07/28/2018 PARTH [id number] Primary NURA SONIDOB: [place] HARJINDER Insurance:MEDICAL [id number] [address]Xke: (330) Number: Repository [phone] () [id number] Date:1207-07-15Y[address] [address]ZC: 07/28/2018 Secondary NOT GIVENUNK [place] Insurance:SELF PAY [facility] Number: Effective Repository Date:2018-07-28 06/26/2018 PARTH [id number] Primary NOT GIVENUNK Jayashree HARJINDER Insurance:SELF PAY [facility] [address]Eim: (330) Number: Effective Repository [phone] () Date:2018-05-19 01/13/2018 Parth [id number] Primary NURA SONIDOB: [place] Harjinder Insurance:MEDICAL [id number] [address]Nlt: (330) Number: Repository [phone] () [id number] Date:[id number] [address]SP: 01/13/2018 Secondary NOT GIVENUNK [place] Insurance:SELF PAY Counts Include [facility]: Effective Repository Date:2018-01-13
== END ==
PROVIDERS: Family Provider Family Medicine; PCP Family Medicine; Visit Provider Family Medicine
DX: E03.9 Hypothyroidism, unspecified (principal)
CPT/HCPCS: 36415; 84443

== ENCOUNTER → 2019-01-26 08:51 | Outpatient (CLI) | payer OTHER, SELFPAY ==
[2019-01-26 11:03] LABS: Anion Gap 4 (5-15); BUN 17 mg/dL (7-18); BUN/Creat Ratio 21.4 RATIO (10-20); Calcium,Total 9.1 mg/dL (8.5-10.1); Chloride 104 mmol/L (98-107); Cholesterol 239 mg/dL (200); EST Glomerular Filtration Rate 78 mL/min (>60); Est Glom Filt Rate - Afr Amer 95 mL/min (>60); Glucose 102 mg/dL (74-106); High Density Lipoprotein 63 mg/dL; Potassium 4.8 mmol/L (3.5-5.1); Sodium Level 138 mmol/L (136-145); Thyroid Stim Hormone (TSH) 2.19 uIU/mL (0.358-3.74); Triglycerides 86 mg/dL; Very Low Density Lipoprotein 17 mg/dL (5-40)
== END ==
PROVIDERS: Family Provider Family Medicine; PCP Family Medicine; Referring Provider Family Medicine; Visit Provider Family Medicine
DX: I10 Essential (primary) hypertension (principal); E78.00 Pure hypercholesterolemia, unspecified; E03.9 Hypothyroidism, unspecified
CPT/HCPCS: 36415; 80048; 80061; 84443

== ENCOUNTER → 2020-01-29 08:04 | Outpatient (CLI) | payer OTHER, SELFPAY ==
[2020-01-29 11:03] LABS: Anion Gap 6 (5-15); BUN 17 mg/dL (7-18); BUN/Creat Ratio 20.2 RATIO (10-20); Chloride 104 mmol/L (98-107); Cholesterol 227 mg/dL (200); Creatinine, Serum 0.84 mg/dL (0.55-1.02); EST Glomerular Filtration Rate 73 mL/min (>60); Est Glom Filt Rate - Afr Amer 88 mL/min (>60); Glucose 111 mg/dL (74-106); High Density Lipoprotein 60 mg/dL; Potassium 4.2 mmol/L (3.5-5.1); Sodium Level 139 mmol/L (136-145); Thyroid Stim Hormone (TSH) 3.27 uIU/mL (0.358-3.74); Triglycerides 125 mg/dL; Very Low Density Lipoprotein 25 mg/dL (5-40)
== END ==
PROVIDERS: Family Medicine; PCP Family Medicine; Referring Provider Family Medicine; Visit Provider Family Medicine
DX: I10 Essential (primary) hypertension (principal); E03.9 Hypothyroidism, unspecified
CPT/HCPCS: 36415; 80048; 80061; 84443

== ENCOUNTER → 2020-08-26 09:52 | Outpatient (CLI) | payer OTHER, SELFPAY ==
[2020-08-26 12:55] LABS: AST(SGOT) 20 U/L (15-37); Alanine Aminotransfer ALT/SGPT 36 U/L (13-56); Albumin, Serum 3.9 g/dL (3.2-5.0); Alkaline Phosphatase 87 U/L (45-117); Anion Gap 6 (5-15); BUN 17 mg/dL (7-18); BUN/Creat Ratio 18.5 RATIO (10-20); Calcium,Total 9.1 mg/dL (8.5-10.1); Chloride 105 mmol/L (98-107); Cholesterol 174 mg/dL (200); Creatinine, Serum 0.92 mg/dL (0.55-1.02); EST Glomerular Filtration Rate 66 mL/min (>60); Est Glom Filt Rate - Afr Amer 80 mL/min (>60); Globulin 3.8 g/dL (2.2-4.2); Glucose 98 mg/dL (74-106); High Density Lipoprotein 74 mg/dL; Potassium 4.3 mmol/L (3.5-5.1); Protein, Total 7.7 g/dL (6.4-8.2); Sodium Level 140 mmol/L (136-145); Thyroid Stim Hormone (TSH) 3.16 uIU/mL (0.358-3.74); Triglycerides 88 mg/dL; Very Low Density Lipoprotein 18 mg/dL (5-40)
== END ==
PROVIDERS: PCP Family Medicine; Visit Provider Family Medicine
DX: E03.9 Hypothyroidism, unspecified (principal); E78.00 Pure hypercholesterolemia, unspecified
CPT/HCPCS: 36415; 80053; 80061; 84443

== ENCOUNTER → 2021-02-24 09:41 | Outpatient (CLI) | payer OTHER, SELFPAY ==
[2021-02-24 12:35] LABS: ALB/GLOB Ratio 1.1 RATIO (0.9-2.4); AST(SGOT) 18 U/L (15-37); Alanine Aminotransfer ALT/SGPT 33 U/L (13-56); Albumin, Serum 3.8 g/dL (3.2-5.0); Alkaline Phosphatase 92 U/L (45-117); Anion Gap 7 (5-15); BUN 21 mg/dL (7-18); BUN/Creat Ratio 23.4 RATIO (10-20); Calcium,Total 8.8 mg/dL (8.5-10.1); Chloride 105 mmol/L (98-107); Cholesterol 183 mg/dL (200); EST Glomerular Filtration Rate 68 mL/min (>60); Est Glom Filt Rate - Afr Amer 82 mL/min (>60); Globulin 3.5 g/dL (2.2-4.2); Glucose 106 mg/dL (74-106); High Density Lipoprotein 72 mg/dL; Potassium 4.1 mmol/L (3.5-5.1); Protein, Total 7.3 g/dL (6.4-8.2); Sodium Level 139 mmol/L (136-145); Thyroid Stim Hormone (TSH) 2.92 uIU/mL (0.358-3.74); Triglycerides 138 mg/dL; Very Low Density Lipoprotein 28 mg/dL (5-40)
== END ==
PROVIDERS: Visit Provider Family Medicine
DX: E78.00 Pure hypercholesterolemia, unspecified (principal); E03.9 Hypothyroidism, unspecified
CPT/HCPCS: 36415; 80053; 80061; 84443

== ENCOUNTER 2021-08-19 05:49 | Emergency (ER) | payer OTHER, SELFPAY ==
[2021-08-19 05:50] VITALS: BP 198/104; PULSE 81; RESP 18; TEMP 36.6; O2SAT 98; BMI 42.6
--- NOTE | 2021-08-19 06:30 | CT_ITS ---
STUDY: CT ABDOMEN AND PELVIS WITH CONTRAST REASON FOR EXAM: Female, 61 years old. LLQ abd pain / ? Diverticulitis RADIATION DOSAGE (If Supplied By Facility): CTDIvol = ( 17.03 ) mGy, DLP = ( 1311.67 ) mGycm TECHNIQUE: Transaxial images were obtained from the dome of the diaphragm to the symphysis pubis without oral contrast. IV 100mL Isovue-300 was administered. Sagittal and coronal images were reconstructed. Individualized dose optimization techniques were used for this CT. COMPARISON: None. FINDINGS: The visualized lung bases are unremarkable. The visualized portions of the heart are within normal limits. Numerous hepatic cysts, the largest of which measures up to 4.6 cm. Normal gallbladder and extrahepatic biliary system. Normal spleen. Normal pancreas. Normal bilateral adrenal glands. Normal right kidney. Normal left kidney. Normal visualized stomach. Normal small intestine. There is diverticulosis, with thickening of the sigmoid wall and pericolonic inflammation changes consistent with acute diverticulitis. No fluid collection or associated free gas. Dilated proximal colon is probably reactive. The appendix is visualized and appears normal. Normal abdominal aorta. Normal inferior vena cava. Normal retroperitoneum. Normal urinary bladder. There is absence of the uterus consistent with a prior hysterectomy. Normal abdominal wall. Thoracolumbar vertebral alignment is maintained. CT/Abdomen/Pelvis W IV Cont ONLY IMPRESSION: Acute uncomplicated sigmoid diverticulitis. Hepatic cysts. Electronically Signed: Ajay Pedraza MD at 7:24 EST Tel , Service support ,
[2021-08-19] MEDS: Morphine 4 MG/ML Syringe IV (06:38)
[2021-08-19] MEDS: 0.9% Normal Saline 1,000 ML 999 ML IV (06:38)
[2021-08-19] MEDS: Ondansetron 4 MG/2 ML Vial IV (06:38)
[2021-08-19 06:40] LABS: Absolute Lymphocyte Count 1.35 X10^3/uL (0.83-4.51); Absolute Neutrophil Count 10.5 X10^3/uL (2.0-7.7); Basophil# 0.05 X10^3/uL; Basophil% 0.4 % (0-1); Eosinophil# 0.11 X10^3/uL; Eosinophils% 0.9 % (0-5); Hemoglobin 13.7 g/dL (12.0-15.0); Lymphocyte # 1.35 X10^3/ul (0.83-4.51); Lymphocyte % 10.5 % (19-41); Mean Corp Hgb Conc 32.6 g/dL (32-36); Mean Corpuscular Hgb 29.8 pg (27.0-32.0); Mean Corpuscular Volume 91.3 fL (81-99); Monocyte# 0.79 X10^3/uL; Monocyte% 6.1 % (0-10); NRBC Flagged by Analyzer 0 % (0-5); Neutrophil % 81.7 % (47-70); POSITIVE COUNT YES; Platelet Count 228 K/mm3 (150-450); RBC Distribution Width CV 12.9 % (11.6-14.6); RBC Distribution Width SD 43.6 fl (35.1-43.9); White Blood Count 12.9 K/mm3 (4.4-11.0)
[2021-08-19 06:43] LABS: Differential Indicated SCAN CRITERIA MET
[2021-08-19 06:52] LABS: Anion Gap 7 (5-15); BUN 12 mg/dL (7-18); Calcium,Total 9.2 mg/dL (8.5-10.1); Chloride 101 mmol/L (98-107); Creatinine, Serum 0.92 mg/dL (0.55-1.02); EST Glomerular Filtration Rate 66 mL/min (>60); Est Glom Filt Rate - Afr Amer 79 mL/min (>60); Estimated Creatinine Clearance 47.84 ml/min; Glucose 171 mg/dL (74-106); Potassium 4.1 mmol/L (3.5-5.1); Sodium Level 135 mmol/L (136-145)
[2021-08-19 07:00] LABS: Differential Comment SCANNED; Platelet Estimate ADEQUATE (ADEQ); Platelet Morphology CLUMPED
--- NOTE | 2021-08-19 07:02 | EX.ED.DYSGE1 ---
HPI History of Present Illness Chief Complaint: Abd Pain Narrative Narrative: Patient is a 61-year-old female who states she has had 3 days of lower abdominal pain greatest in the left lower quadrant. She states with this she has had constipation which is not normal for her. She states she feels the pain has been slowly worsening and now is progressed to bouts of nausea and vomiting and secondary to this comes in for evaluation [facility] Medical History High cholesterol Hypertension Hypothyroid Home Medications ciprofloxacin HCl 750 mg PO BID 7 Days #14 tab 08/19/21 [Rx Last Taken Unknown] hydrocodone-acetaminophen 1 tab PO Q6H PRN 3 Days #12 tab 08/19/21 [Rx Last Taken Unknown] metronidazole 500 mg PO TID 7 Days #21 tab 08/19/21 [Rx Last Taken Unknown] ondansetron 4 mg PO Q8H PRN #21 tab 08/19/21 [Rx Last Taken Unknown] Allergy/AdvReac Type Severity Reaction Status Date / Time No Known Allergies Allergy Verified 08/19/21 05:53 Social History Smoking Status: Never smoker ROS ROS ED Constitutional Constitutional ED: Denies chills or fever(s) ENT ENT ED: Denies sore throat Cardiovascular Cardiovascular: Denies chest pain Respiratory/Chest Respiratory/Chest: Denies cough or dyspnea Gastrointestinal Gastrointestinal: Reports abdominal pain, constipation, nausea and vomiting; Denies diarrhea Genitourinary Genitourinary ED: Denies dysuria Musculoskeletal Musculoskeletal: Denies myalgias Integumentary Denies rash Neurologic Neurologic: Denies headache(s) Hematologic/Lymphatic Hematologic/Lymphatic: Denies easy bleeding or easy bruising EXAM Physical Exam Const Vital Signs: 08/19/21 05:50 Temperature 98 F Temperature Source Oral Pulse Rate 81 Respiratory Rate 18 Blood Pressure 198/104 H Blood Pressure Mean 135 Pulse Ox 98 Oxygen Delivery Method Room Air Positive well nourished, well developed and obese General Appearance ED: well developed Nutritional Appearance: obese HEENT Reports moist mucous membranes Eyes PERRL and EOMs intact bilaterally Neck supple Resp normal respiratory effort and clear to auscultation bilaterally Cardio regular rate and regular rhythm GI non-distended GI Narrative: Abdomen is obese soft and nondistended with hypoactive bowel sounds. There is pain present in the lower abdomen diffusely but greatest in the left lower quadrant with voluntary guarding at the site. No pulsatile mass no increased tympany Palpation: soft Back/Spine no CVA tenderness Extremity normal to inspection Neuro oriented x3 and CN's II-XII intact bilaterally Sensorium / Orientation: alert Motor Exam: strength 5/5 throughout Psych mental status grossly normal Skin no rashes or lesions noted MDM MDM MDM Narrative Medical decision making narrative: Patient presented hypertensive but otherwise afebrile. Her history and exam is most concerning for diverticulitis. Therefore at this time basic labs will be obtained as well as a CT scan with IV contrast. Labs showed mild elevation to her white count but no lactic acidosis and CT scan confirmed acute uncomplicated diverticulitis. Therefore at this time with no changes to suggest sepsis or abscess or perforation there is no need for inpatient treatment and patient to be placed on outpatient antibiotics and discharged home Lab Data Attestation: I reviewed the patient's lab results. Labs: Laboratory Results - last 24 hr 08/19/21 08/19/21 08/19/21 06:06 06:06 06:36 WBC 12.9 H RBC 4.60 Hgb 13.7 Hct 42.0 MCV 91.3 MCH 29.8 MCHC 32.6 RDW Std Deviation 43.6 RDW Coeff of Tish 12.9 Plt Count 228 MPV 11.0 Immature Gran % (Auto) 0.400 Neut % (Auto) 81.7 H Lymph % (Auto) 10.5 L [place] % (Auto) 6.1 Eos % (Auto) 0.9 Baso % (Auto) 0.4 Absolute Neuts (auto) 10.5 H Absolute Lymphs (auto) 1.35 Nucleated RBC % 0 Differential Comment SCANNED Platelet Estimate ADEQUATE Plt Morphology Comment CLUMPED Sodium 135 L Potassium 4.1 Chloride 101 Carbon Dioxide 27.0 Anion Gap 7 BUN 12 Creatinine 0.92 Estim Creat Clear Calc 47.84 Est GFR (MDRD) Af Amer 79 Est GFR (MDRD) Non-Af 66 BUN/Creatinine Ratio 13.0 Glucose 171 H Lactic Acid 1.3 Calcium 9.2 Radiography Diagnostic Testing: Clinical Impression(s) from Imaging Studies Abdomen/Pelvis CT 08/19/21 06:30 IMPRESSION: Acute uncomplicated sigmoid diverticulitis. Hepatic cysts. Electronically Signed: Ajay Pedraza MD at 7:24 EST Tel , Service support , Discharge Plan Triage Chief Complaint: Abd Pain ED Provider: Mihir Clarke Dx/Rx/DC Orders Clinical Impression: Acute diverticulitis Instructions: ED Diverticulitis Prescriptions: New ciprofloxacin HCl 750 mg tablet 750 mg PO BID 7 Days Qty: 14 RF: 0 metronidazole 500 mg tablet 500 mg PO TID 7 Days Qty: 21 RF: 0 hydrocodone-acetaminophen 5-325 mg tablet 1 tab PO Q6H PRN (Reason: pain) 3 Days Qty: 12 RF: 0 ondansetron 4 mg tablet,disintegrating 4 mg PO Q8H PRN (Reason: nausea and vomiting) Qty: 21 RF: 0 Primary Care Provider: Care Physician,No Primary Referrals: Sybil Covarrubias DO [STAFF PHYSICIAN] - 3-5 Days if not improving Care Physician,No Primary [Primary Care Provider] - Disposition Disposition: Home, Self Care
[2021-08-19 07:04] LABS: Lactic Acid 1.3 mmol/L (0.4-1.9)
[2021-08-19 08:19] VITALS: PULSE 88; RESP 17; O2SAT 98
== END 2021-08-19 08:21 | disposition home or self-care (01) ==
PROVIDERS: Emergency Provider Emergency Medicine
DX: K57.32 Diverticulitis of large intestine without perforation or abscess without bleeding (principal); K76.89 Other specified diseases of liver; E66.9 Obesity, unspecified; Z68.41 Body mass index [BMI] 40.0-44.9, adult
CPT/HCPCS: 74177; 80048; 83605; 85025; 96365; 96375; 99285; J7030; Q9967; A4216; J2405

== ENCOUNTER 2021-09-04 10:40 | Outpatient (CLI) | payer OTHER, SELFPAY ==
[2021-09-04 13:27] LABS: Anion Gap 8 (5-15); BUN 8 mg/dL (7-18); BUN/Creat Ratio 11.4 RATIO (10-20); Calcium,Total 9.1 mg/dL (8.5-10.1); Chloride 105 mmol/L (98-107); Cholesterol 147 mg/dL (200); EST Glomerular Filtration Rate 90 mL/min (>60); Est Glom Filt Rate - Afr Amer 109 mL/min (>60); Glucose 111 mg/dL (74-106); High Density Lipoprotein 52 mg/dL; Sodium Level 140 mmol/L (136-145); Thyroid Stim Hormone (TSH) 1.53 uIU/mL (0.358-3.74); Triglycerides 88 mg/dL; Very Low Density Lipoprotein 18 mg/dL (5-40)
== END 2021-09-04 23:59 | disposition short-term general hospital (02) ==
PROVIDERS: PCP Nurse Practitioner Family; Referring Provider Nurse Practitioner Family; Visit Provider Nurse Practitioner Family
DX: I10 Essential (primary) hypertension (principal); E78.00 Pure hypercholesterolemia, unspecified; E03.9 Hypothyroidism, unspecified
CPT/HCPCS: 36415; 80048; 80061; 84443

== ENCOUNTER 2021-09-07 13:52 | Outpatient (CLI) | payer OTHER, SELFPAY ==
--- NOTE | 2021-09-07 13:57 | ECHOCS_ITS ---
Reason For Study: Murmur Procedure This was a 2D Doppler, Color Flow transthoracic echocardiogram. The study was technically difficult. Contrast injection was performed. Exam performed in department. Left Ventricle Normal LV size. Left ventricular systolic function is normal. The estimated ejection fraction is 70 %. No evidence for diastolic dysfunction. No regional wall motion abnormalities noted. Right Ventricle Normal RV size. Normal systolic function. Atria Normal left atrium. Normal right atrium. No doppler evidence for ASD. Mitral Valve There is no mitral annular calcification. Normal mitral valve. Trivial mitral valve insufficiency. Tricuspid Valve Normal tricuspid valve. Trivial tricuspid valve insufficiency. Unable to estimate RV systolic pressure/pulmonary artery pressure due to technically difficult study. Aortic Valve The aortic valve is not well visualized. Pulmonic Valve The pulmonic valve is not well visualized. Great Vessels Normal sized aortic root. Pericardium/Pleural No pericardial effusion. Medication 22 gauge I.V. with prn adaptor inserted into right arm. Diluted definity 2.5ml given slow IV push to enhance endocardial definition. MMode/2D Measurements & Calculations LVIDd: 4.9 cm IVSd: 1.3 cm Ao root diam: 3.4 cm LVIDs: 2.6 cm LVPWd: 1.1 cm FS: 46.7 % LAV(MOD-bp): 52.6 ml LA A4 area: 17.4 cm2 RA A4 area: 17.4 cm2 LAV(MOD-bp) Indexed: 27.2 ml/m2 LAV(MOD-sp2): 59.1 ml LAV(MOD-sp4): 45.4 ml Time Measurements MV dec time: 0.23 sec Doppler Measurements & Calculations MV E max gigi: 91.7 cm/sec Lat Peak E' Gigi: 12.3 cm/sec Med Peak E' Gigi: 8.3 cm/sec MV A max gigi: 115.3 cm/sec E/E' lat: 7.5 E/E' med: 11.0 MV E/A: 0.80 MV V2 max: 123.3 cm/sec MV P1/2t max gigi: 107.9 cm/sec Ao V2 max: 164.8 cm/sec MV max P.1 mmHg MV P1/2t: 90.3 msec Ao max P.9 mmHg MV V2 mean: 66.8 cm/sec MV dec slope: 349.8 cm/sec2 MV mean P.1 mmHg MV V2 VTI: 31.8 cm MVA(P1/2t): 2.4 cm2 LV V1 max: 149.9 cm/sec PA V2 max: 101.1 cm/sec LV V1 max P.0 mmHg ECHO/Echo Complete W/ Contrast Interpretation Summary The study was technically difficult. Contrast injection was performed. Left ventricular systolic function is normal. The estimated ejection fraction is 70 %. Trivial mitral valve insufficiency. Trivial tricuspid valve insufficiency. Unable to estimate RV systolic pressure/pulmonary artery pressure due to techni karuna difficult study. No evidence for diastolic dysfunction. Ordering Physician: Emerson Rodas Referring Physician: Emerson Rodas Performed By: Pranay Cash RCS
== END 2021-09-07 23:59 | disposition short-term general hospital (02) ==
LOC: CVS 13:56
PROVIDERS: PCP Nurse Practitioner Family; Referring Provider Family Medicine; Visit Provider Family Medicine
DX: R01.1 Cardiac murmur, unspecified (principal)
CPT/HCPCS: 93306; Q9957; A4216; C8929

== ENCOUNTER → 2023-03-22 | Outpatient (CLI) | payer OTHER, SELFPAY ==
[2023-03-22 12:29] LABS: Absolute Lymphocyte Count 1.41 X10^3/uL (0.83-4.51); Basophil# 0.07 X10^3/uL; Basophil% 1.1 % (0-1); Eosinophil# 0.17 X10^3/uL; Eosinophils% 2.7 % (0-5); Hematocrit 42.6 % (37-47); Hemoglobin 13.6 g/dL (12.0-15.0); Lymphocyte # 1.41 X10^3/ul (0.83-4.51); Lymphocyte % 22.7 % (19-41); Mean Corp Hgb Conc 31.9 g/dL (32-36); Mean Corpuscular Hgb 30.6 pg (27.0-32.0); Mean Corpuscular Volume 95.7 fL (81-99); Mean Platelet Vol. 10.4 fl (6.2-12.0); Monocyte# 0.53 X10^3/uL; Monocyte% 8.5 % (0-10); NRBC Flagged by Analyzer 0 % (0-5); Neutrophil # 4.02 X10^3/uL (2.7-7.7); Neutrophil % 64.8 % (47-70); Platelet Count 225 K/mm3 (150-450); RBC Distribution Width CV 13.5 % (11.6-14.6); RBC Distribution Width SD 47.7 fl (35.1-43.9); Red Blood Count 4.45 M/mm3 (4.2-5.4); White Blood Count 6.2 K/mm3 (4.4-11.0)
[2023-03-22 12:59] LABS: AST(SGOT) 17 U/L (15-37); Alanine Aminotransfer ALT/SGPT 30 U/L (13-56); Albumin, Serum 3.7 g/dL (3.2-5.0); Alkaline Phosphatase 83 U/L (45-117); Anion Gap 4 (5-15); BUN 11 mg/dL (7-18); BUN/Creat Ratio 14.3 RATIO (10-20); Calcium,Total 8.9 mg/dL (8.5-10.1); Chloride 107 mmol/L (98-107); Cholesterol 174 mg/dL (200); Creatinine, Serum 0.77 mg/dL (0.55-1.02); EST Glomerular Filtration Rate 80 mL/min (>60); Est Glom Filt Rate - Afr Amer 97 mL/min (>60); Globulin 3.8 g/dL (2.2-4.2); Glucose 116 mg/dL (74-106); High Density Lipoprotein 86 mg/dL; Potassium 4.2 mmol/L (3.5-5.1); Protein, Total 7.5 g/dL (6.4-8.2); Sodium Level 138 mmol/L (136-145); Thyroid Stim Hormone (TSH) 2.95 uIU/mL (0.358-3.74); Triglycerides 61 mg/dL; Very Low Density Lipoprotein 12 mg/dL (5-40)
[2023-03-22 13:21] LABS: Hemoglobin A1c 5.7 % (3.8-5.6)
== END | disposition home or self-care (01) ==
PROVIDERS: PCP Family Medicine; Visit Provider Family Medicine
DX: Z00.00 Encounter for general adult medical examination without abnormal findings (principal); Z13.1 Encounter for screening for diabetes mellitus; I10 Essential (primary) hypertension; E78.5 Hyperlipidemia, unspecified; E03.9 Hypothyroidism, unspecified
CPT/HCPCS: 36415; 80053; 80061; 82043; 83036; 84443; 85025

== ENCOUNTER 2023-08-14 07:25 | Emergency (ER) | payer OTHER, SELFPAY ==
[2023-08-14 07:27] VITALS: BP 210/135; PULSE 140; RESP 18; TEMP 36.1; O2SAT 95; BMI 39.1
--- NOTE | 2023-08-14 07:32 | EKG12_ITS ---
Test Reason : Blood Pressure : / mmHG Vent. Rate : 150 BPM Atrial Rate : 308 BPM P-R Int : 000 ms QRS Dur : 084 ms QT Int : 256 ms P-R-T Axes : 000 -11 039 degrees QTc Int : 404 ms Critical Test Result: High HR Atrial fibrillation with variable A-V block Nonspecific ST abnormality Abnormal ECG Confirmed by SHIV PULLIAM, SADE ([id number]), design editor SHASHANK CA ([id number]) on 08/15/2023 1:08:45 PM Referred By: KENDY Confirmed By:SADE CHANEY MD
--- NOTE | 2023-08-14 07:35 | EKG12_ITS ---
Test Reason : Blood Pressure : / mmHG Vent. Rate : 052 BPM Atrial Rate : 052 BPM P-R Int : 162 ms QRS Dur : 088 ms QT Int : 396 ms P-R-T Axes : 025 -16 064 degrees QTc Int : 368 ms Sinus bradycardia Otherwise normal ECG Confirmed by SHIV PULLIAM, SADE ([id number]), news editor SHASHANK CA ([id number]) on 08/15/2023 1:04:11 PM Referred By: KENDY Confirmed By:SADE CHANEY MD
--- NOTE | 2023-08-14 07:35 | RAD_ITS ---
INDICATION: tachycardia EXAMINATION/TECHNIQUE: X-RAY - XR Chest 1 View COMPARISON: CT of the abdomen and pelvis dated August 19, 2021 FINDINGS: LINES/DEVICES: None. LUNGS: No consolidation, edema or effusion. No pneumothorax. MEDIASTINUM AND CARDIOVASCULAR STRUCTURES: Cardiac silhouette not enlarged. Central airways and mediastinal contour are unremarkable. BONES AND SOFT TISSUES: Unremarkable. RAD/Chest 1 View (Portable) IMPRESSION: No radiographic evidence of acute cardiopulmonary disease. Electronically Signed: Alyse Wise MD at 8:18 EST ,
--- NOTE | 2023-08-14 07:39 | EX.ED.DYSGE1 ---
HPI History of Present Illness Chief Complaint: Palpitations Detail of Chief Complaint: Palpitations, racing heart Informant: patient Narrative Narrative: Patient presents to the emergency department complaint of palpitations and racing heart that started today. Patient denies any chest pain or significant shortness of breath. She tells me she had surgery about 3 weeks ago for rectal prolapse. Patient denies any swelling in her legs or history of PE or DVT. She has history of hypothyroidism and history of hypertension and has been compliant with her medications. No prior history of abnormal heart rhythms. She denies fever or recent illness. [facility] Medical History High cholesterol Hypertension Hypothyroid Home Medications ciprofloxacin HCl 750 mg tablet 750 mg PO BID 7 days #14 tabs 08/19/21 [Rx Last Taken Unknown] hydrocodone-acetaminophen 5-325mg 5mg-325mg 1 tab PO Q6H PRN pain 3 days #12 tabs 08/19/21 [Rx Last Taken Unknown] metronidazole 500 mg tablet 500 mg PO TID 7 days #21 tabs 08/19/21 [Rx Last Taken Unknown] ondansetron 4 mg disintegrating tablet 4 mg PO Q8H PRN nausea and vomiting #21 tabs 08/19/21 [Rx Last Taken Unknown] metoprolol tartrate 25 mg tablet 25 mg PO BID #60 tabs 08/14/23 [Rx Last Taken Unknown] Allergy/AdvReac Type Severity Reaction Status Date / Time No Known Allergies Allergy Verified 08/14/23 07:27 Social History Smoking Status: Never smoker ROS ROS ED Review of Systems ROS Unobtainable: other Constitutional Constitutional ED: Reports lethargy; Denies chills, fever(s), sweats or weight loss Eyes Eyes: Denies blurry vision, change in vision or diplopia ENT ENT ED: Denies rhinorrhea or sore throat Cardiovascular Cardiovascular: Reports palpitations and racing heartbeat; Denies chest pain or orthopnea Respiratory/Chest Respiratory/Chest: Denies cough, dyspnea, dyspnea on exertion, orthopnea or sputum Gastrointestinal Gastrointestinal: Denies abdominal pain, diarrhea, nausea or vomiting Genitourinary Genitourinary ED: Denies dysuria, hematuria or urinary frequency Musculoskeletal Musculoskeletal: Denies arthralgias, back pain, myalgias or neck pain Integumentary Denies abscess, Abrasions or rash Neurologic Neurologic: Denies headache(s) or weakness Psychiatric Psychiatric: Denies anxiety, depression or suicidal thoughts Endocrine Endocrinology: Denies polydipsia, polyphagia or polyuria Hematologic/Lymphatic Hematologic/Lymphatic: Denies easy bleeding, easy bruising or lymphadenopathy Allergic/Immunologic Allergic/Immunologic ED: Denies mouth swelling, tongue swelling or urticaria EXAM Physical Exam Const Vital Signs: 08/14/23 07:27 08/14/23 08:05 08/14/23 09:55 Temperature 97.0 F L Temperature Source Oral Pulse Rate 140 H 104 H 59 L Respiratory Rate 18 20 H Blood Pressure 210/135 H 156/94 H 144/69 H Blood Pressure Mean 160 114 94 Pulse Ox 95 99 Oxygen Delivery Method Room Air Room Air 08/14/23 10:11 08/14/23 10:12 Temperature Temperature Source Pulse Rate 58 L 59 L Respiratory Rate 16 17 Blood Pressure 147/69 H 147/69 H Blood Pressure Mean 95 95 Pulse Ox 98 99 Oxygen Delivery Method Room Air Positive well nourished and well developed General Appearance ED: well developed and NAD HEENT Reports TM's clear and moist mucous membranes normocephalic and atraumatic; Negative for trauma or tenderness Tympanic Membrane ED: Yes TM's clear Eyes PERRL and EOMs intact bilaterally General Eye ED: Negative for pale conjunctiva or scleral icterus Neck no lymphadenopathy, supple and no JVD General: Negative for tenderness Chest Wall inspection of chest normal and palpation of chest normal Chest: Negative for tenderness Resp normal respiratory effort and clear to auscultation bilaterally Effort and Inspection: Negative for respiratory distress or pain with movement Auscultation: Negative for rhonchi, wheezes or diminished lung sounds Cardio regular rhythm, S1 normal heart sound, S2 normal heart sound and no murmurs; Negative for regular rate Rate: tachycardic Peripheral Pulses: pulses 2+ throughout GI normal to inspection, nondistended, normoactive bowel sounds, soft to palpation, non-tender, non-distended and no masses Back/Spine no CVA tenderness and no thoracic nor lumbar tenderness Extremity normal to inspection General Extremety ED: Negative for edema General Extremity: Negative for edema Neuro oriented x3, CN's II-XII intact bilaterally, no sensory deficits noted and gait normal Sensorium / Orientation: awake, alert, oriented to person, oriented to place and oriented to time Motor Exam: strength 5/5 throughout and strength abnormal Psych mental status grossly normal Skin no rashes or lesions noted and no wounds MDM MDM MDM Narrative Medical decision making narrative: Patient presents with palpitations that started this morning. Heart rate in the 150s. EKG obtained arrival showed atrial fibrillation with rate of 150. In the differential would be ischemic causes versus secondary to recent surgery versus PE or related to thyroid. IV line established. Patient was given Cardizem 20 mg IV bolus and this initially reduced her heart rate into the 90s and then patient converted to a sinus rhythm with temporary sinus bradycardia rates in the 30s and 40s. She maintained blood pressure throughout. Relatively asymptomatic with this. CBC with differential obtained from a count of 7.2 with hemoglobin 14 and platelet count of 254. Chemistries unremarkable. Troponin was normal at 13 TSH was normal at 2.45. D-dimer was elevated at 0.81 and given recent surgery CTA of the chest was obtained to rule out PE and this was negative for PE but did show some granulomatous disease. Patient case was discussed with cardiology on-call Dr. Chery who recommended starting patient on metoprolol 25 mg twice daily. He did not feel anticoagulation was indicated or necessary at this time. Recommended patient take daily aspirin. Discussed results with patient as well is her and they are comfortable with plan. Advised to follow-up with cardiology. Lab Data Attestation: I reviewed the patient's lab results. Labs: Laboratory Results - last 24 hr 08/14/23 07:38 WBC 7.2 RBC 4.57 Hgb 14.1 Hct 42.7 MCV 93.4 MCH 30.9 MCHC 33.0 RDW Std Deviation 45.5 H RDW Coeff of Tish 13.4 Plt Count 254 MPV 10.5 Immature Gran % (Auto) 0.300 Neut % (Auto) 55.3 Lymph % (Auto) 28.9 [place] % (Auto) 8.5 Eos % (Auto) 6.0 H Baso % (Auto) 1.0 Absolute Neuts (auto) 4.0 Absolute Lymphs (auto) 2.08 Nucleated RBC % 0 D-Dimer Quant (PE/DVT) 0.81 H* Sodium 139 Potassium 3.8 Chloride 108 H Carbon Dioxide 28.0 Anion Gap 3 L BUN 12 Creatinine 0.81 Estim Creat Clear Calc 52.95 Est GFR (MDRD) Af Amer 91 Est GFR (MDRD) Non-Af 75 BUN/Creatinine Ratio 14.8 Glucose 138 H Calcium 9.4 Troponin I High Sens 13 TSH 2.45 Radiography Diagnostic Testing: Clinical Impression(s) from Imaging Studies Chest X-Ray 08/14/23 07:35 IMPRESSION: No radiographic evidence of acute cardiopulmonary disease. Electronically Signed: Alyse Wise MD at 8:18 EST , Chest CTA 08/14/23 08:23 IMPRESSION: No demonstrated pulmonary embolism or arterial dissection. No acute cardiopulmonary process. Atherosclerosis. Evidence of prior granulomatous disease. Electronically Signed: Alyse Wise MD at 9:41 EST , 1 view chest x-ray obtained interpreted by myself as no evidence of infiltrate or pneumothorax or acute disease process. Radiology in agreement. EKG Initial EKG: Attestation: I personally reviewed and interpreted this EKG as follows: Comments: Atrial fibrillation with rate [address] changes Repeat EKG after patient converted back to sinus rhythm shows sinus bradycardia with a rate of 52 bpm with no acute ST segment changes. Discharge Plan Triage Chief Complaint: Palpitations ED Provider: Ivan Cuellar Dx/Rx/DC Orders Clinical Impression: Atrial fibrillation Instructions: ED AFIB Prescriptions: New metoprolol tartrate 25 mg tablet 25 mg PO BID Qty: 60 0RF No Action ciprofloxacin HCl 750 mg tablet 750 mg PO BID 7 Days Qty: 14 0RF metronidazole 500 mg tablet 500 mg PO TID 7 Days Qty: 21 0RF hydrocodone-acetaminophen 5-325 mg tablet 1 tab PO Q6H PRN (Reason: pain) 3 Days Qty: 12 0RF ondansetron 4 mg tablet,disintegrating 4 mg PO Q8H PRN (Reason: nausea and vomiting) Qty: 21 0RF Primary Care Provider: Madhavi Gonzalez Referrals: Madhavi Gonzalez, [Primary Care Provider] - Leonardo Chery MD [Med Staff - Active Staff] - 3-5 Days Activity Restrictions/Additional Instructions: Take a daily baby aspirin and follow-up with cardiology. Disposition Disposition: Home, Self Care Discharge Date/Time: 08/14/23 10:13
[2023-08-14] MEDS: 0.45% Normal Saline 1,000 ML 100 ML IV (07:50)
[2023-08-14] MEDS: dilTIAZem 25 MG/5 ML Vial 20 MG IV BOLUS (07:50)
[2023-08-14 07:57] LABS: Absolute Lymphocyte Count 2.08 X10^3/uL (0.83-4.51); Basophil# 0.07 X10^3/uL; Eosinophil# 0.43 X10^3/uL; Hematocrit 42.7 % (37-47); Hemoglobin 14.1 g/dL (12.0-15.0); Lymphocyte # 2.08 X10^3/ul (0.83-4.51); Lymphocyte % 28.9 % (19-41); Mean Corpuscular Hgb 30.9 pg (27.0-32.0); Mean Corpuscular Volume 93.4 fL (81-99); Mean Platelet Vol. 10.5 fl (6.2-12.0); Monocyte# 0.61 X10^3/uL; Monocyte% 8.5 % (0-10); NRBC Flagged by Analyzer 0 % (0-5); Neutrophil # 3.98 X10^3/uL (2.7-7.7); Neutrophil % 55.3 % (47-70); Platelet Count 254 K/mm3 (150-450); RBC Distribution Width CV 13.4 % (11.6-14.6); RBC Distribution Width SD 45.5 fl (35.1-43.9); Red Blood Count 4.57 M/mm3 (4.2-5.4); White Blood Count 7.2 K/mm3 (4.4-11.0)
[2023-08-14 08:05] VITALS: BP 156/94; PULSE 104; RESP 20; O2SAT 99
[2023-08-14 08:16] LABS: Anion Gap 3 (5-15); BUN 12 mg/dL (7-18); BUN/Creat Ratio 14.8 RATIO (10-20); Calcium,Total 9.4 mg/dL (8.5-10.1); Chloride 108 mmol/L (98-107); Creatinine, Serum 0.81 mg/dL (0.55-1.02); EST Glomerular Filtration Rate 75 mL/min (>60); Est Glom Filt Rate - Afr Amer 91 mL/min (>60); Estimated Creatinine Clearance 52.95 ml/min; Glucose 138 mg/dL (74-106); Potassium 3.8 mmol/L (3.5-5.1); Sodium Level 139 mmol/L (136-145); Thyroid Stim Hormone (TSH) 2.45 uIU/mL (0.358-3.74); Troponin-I HS 13 pg/mL (3.0-54.0)
[2023-08-14 08:23] LABS: D-Dimer Quantitative (DVT/PE) 0.81 FEU/ug/m (0.27-0.49)
--- NOTE | 2023-08-14 08:23 | CT_ITS ---
STUDY: CTA CHEST REASON FOR EXAM: Female, 63 years old. Elevated d-dimer, new a-flutter RADIATION DOSAGE (If Supplied By Facility): CTDIvol = ( 16.09 ) mGy, DLP = ( 440.16 ) mGycm TECHNIQUE: The examination was performed with the intravenous administration of IV 100mL [id number]. Post-processing of the angiographic images was performed, with multiplanar reformation and 3D reconstruction. Individualized dose optimization techniques were used for this CT. COMPARISON: CT of the abdomen and pelvis dated August 19, 2021 FINDINGS: There are scattered granulomas throughout the lungs. There is no new focal consolidation. There is stable atelectasis and/or scarring within the lingula. No effusions are seen. Normal enhancement of the main pulmonary artery and right and left pulmonary arteries. Normal enhancement of the bilateral peripheral pulmonary arteries. There is no demonstrated pulmonary embolism. There are peripheral calcifications of the thoracic aorta. There is no demonstrated aortic dissection. There are calcifications of the coronary arteries. There are calcified mediastinal and hilar lymph nodes. Normal visualized trachea and bronchi. Normal chest wall structures. There are degenerative changes of thoracic spine. The limited images of the upper abdomen demonstrate stable scattered well-circumscribed low-attenuation foci within the liver. CT/CTA Chest W/WO Contrast IMPRESSION: No demonstrated pulmonary embolism or arterial dissection. No acute cardiopulmonary process. Atherosclerosis. Evidence of prior granulomatous disease. Electronically Signed: Alyse Wise MD at 9:41 EST ,
[2023-08-14 09:55] VITALS: BP 144/69; PULSE 59
[2023-08-14 10:11] VITALS: BP 147/69; PULSE 58; RESP 16; O2SAT 98
[2023-08-14 10:12] VITALS: BP 147/69; PULSE 59; RESP 17; O2SAT 99
== END 2023-08-14 10:13 | disposition home or self-care (01) ==
PROVIDERS: Emergency Provider Emergency Medicine; PCP Family Medicine; Visit Provider Emergency Medicine
DX: I48.91 Unspecified atrial fibrillation (principal)
CPT/HCPCS: 71045; 71275; 80048; 84443; 84484; 85025; 85379; 93005; 96361; 96374; 99282; Q9967; A4216

== ENCOUNTER → 2023-09-26 | Outpatient (CLI) | payer OTHER, SELFPAY ==
--- OUTSIDE RECORDS SUMMARY | 2023-09-26 10:47 | XMS RPT_ITS | CCD ---
Author Name Unknown Address [address] [place] [address] Organization [facility] Care Team Providers Care Boiler Helper Name Role Phone PETE VIZCARRA Attending Unavailable PETE VIZCARRA Primary Care Unavailable PETE VIZCARRA Admitting Unavailable Brian Owens MD Primary Care Provider Brian Owens MD Primary Care Provider [phone] [facility] Primary Care Provide r Brian Owens MD Primary Care Provider [phone] KATHY, LOUIE Referring Unavailable KATHY, LOUIE Attending Unavailable KATHY, LOUIE Admitting Unavailable COLEEN HERNANDEZ Primary Care Unavailable EDMUND, INDIRESHA R Attending Unavailable KATHY, LOUIE Referring Unavailable KATHY, LOUIE Referring Unavailable KATHY, LOUIE Attending Unavailable TSANG, LISA Referring Unavailable BRIAN OWENS Primary Care Unavailable TSANG, LISA Attending Unavailable BRIAN OWENS Primary Care Unavailable TSANG, LISA Referring Unavailable BRIAN OWENS Primary Care Unavailable TSANG, LISA Referring Unavailable KATHY, LOUIE Attending Unavailable COLEEN HERNANDEZ Primary Care Unavailable COLEEN HERNANDEZ Primary Care Unavailable EDMUND, INDIRESHA R Referring Unavailable KATHY, LOUIE Attending Unavailable COLEEN HERNANDEZ Primary Care Unavailable Medications Completed/Discontinued Medications Medication Drug Class(es) Dates Sig (Normalized) Sig (Original) aspirin 81 mg delayed release oral tablet (9 sources) Platelet Aggregation Inhibitor, Nonsteroidal Anti-inflammatory Drug Start: 12-09-2009 aspirin(ASPIR-LOW 81 MG TAB) Take one(1) tablet daily. 0 12/09/2009 Active Problems Active Problems Problem Classification Problem Date Documented Da te Episodic/Chronic Administrative/social admission (1 source) Education and/or schooling finding; Translations: [Problems related to education and literacy, unspecified] 07-19-2023 Episodic Cardiac dysrhythmias (2 sources) Paroxysmal atrial fibrillation; Translations: [Paroxysmal atrial fibrillation (HCC)] Onset: 08-19-2023 Chronic Disorders of lipid metabolism (9 sources) Pure hypercholesterolemia ; Translations: [Pure hypercholesterolemia , unspecified] Onset: 07-20-2017 03-02-2018 Chronic Essential hypertension (1 source) Essential (primary) hypertension; Translations: [Primary hypertension] Onset: 08-19-2023 Chronic Genitourinary symptoms and ill-defined conditions (1 source) Mixed urinary incontinence; Translations: [Mixed incontinence] 06-22-2023 Chronic Menopausal disorders (3 sources) Postmenopausal state; Translations: [Hormone replacement therapy] Episodic Other congenital anomalies (9 sources) Congenital pes cavus; Translations: [Congenital pes cavus, unspecified foot] Onset: 10-27-2017 10-27-2017 Chronic Other gastrointestinal disorders (1 source) Constipation; Translations: [Constipation, unspecified] 06-22-2023 Episodic Other nervous system disorders (1 source) Other acute postprocedural pain; Translations: [Post-operative pain] Onset: 07-25-2023 Episodic Other nutritional; endocrine; and metabolic disorders (4 sources) Obese class II; Translations: [Obesity, unspecified] Onset: 06-22-2023 06-22-2023 Chronic Other nutritional; endocrine; and metabolic disorders (1 source) Obesity, unspecified; Translations: [Obesity, Class II, BMI 35-39.9] Onset: 06-22-2023 Chronic Prolapse of female genital organs (19 sources) Disorder of rectum; Translations: [Rectocele] Onset: 05-19-2023 Chronic Thyroid disorders (18 sources) Hypothyroidism; Translations: [Hypothyroidism, unspecified] Onset: 01-22-2015 01-22-2015 Chronic Past or Other Problems Problem Classification Problem Date Documented Da te Episodic/Chronic Other bone disease and musculoskeletal deformities (9 sources) Osteopenia; Translations: [Other specified disorders of bone density and structure, unspecified site] Onset: 01-15-2013 01-15-2013 Episodic Other circulatory disease (9 sources) Labile hypertension due to being in a clinical environment; Translations: [Elevated blood-pressure reading, without diagnosis of hypertension] Onset: 01-29-2016 01-29-2016 Episodic Other circulatory disease (10 sources) Elevated blood-pressure reading without diagnosis of hypertension; Translations: [Elevated blood-pressure reading, without diagnosis of hypertension] Onset: 07-20-2017 03-02-2018 Episodic Other circulatory disease (1 source) Elevated blood-pressure reading, without diagnosis of hypertension; Translations: [Elevated blood pressure reading without diagnosis of hypertension] Onset: 03-02-2018 Episodic Other connective tissue disease (9 sources) Metatarsalgia of right foot; Translations: [Metatarsalgia, right foot] Onset: 10-27-2017 10-27-2017 Episodic Other screening for suspected conditions (not mental disorders or infectious disease) (7 sources) Patient encounter status; Translations: [Encounter for screening mammogram for malignant neoplasm of breast] Onset: 04-27-2023 Episodic Residual codes; unclassified (1 source) Asymptomatic menopausal state; Translations: [Asymptomatic postmenopausal state] Onset: 04-27-2023 Episodic Results Test Name Value Interpretation Reference Range Facil ity Vital Signs Date Time Vital Sign Value Performing Clinician Feliz zelaya 07-15-2023 10:59-0500 Body height 154.[address] [facility] 07-15-2023 10:59-0500 Body temperature 98.1 [degF] Pst 1 [facility] 07-15-2023 10:59-0500 Body weight 90.[address] [facility] 07-15-2023 10:59-0500 Diastolic blood pressure 106 mm[Hg] Pst 1 [facility] 07-15-2023 10:59-0500 Heart rate 66 /min Pst [address] [facility] 07-15-2023 10:59-0500 Respiratory rate 16 /min Pst 1 [facility] 07-15-2023 10:59-0500 SaO2% (BldA) [Mass fraction] 100 % Pst 1 [facility] 07-15-2023 10:59-0500 Systolic blood pressure 193 mm[Hg] Pst 1 [facility] 06-22-2023 10:43-0400 Diastolic blood pressure 96 mm[Hg] Louie Chavez MD Work Phone: [facility] 06-22-2023 10:43-0400 Heart rate 55 /min Louie Chavez MD Work Phone: [facility] 06-22-2023 10:43-0400 Systolic blood pressure 179 mm[Hg] Louie Chavez MD Work Phone: [facility] 06-22-2023 09:45-0400 Body weight 92.99 kg Louie Chavez MD Work Phone: [facility] 04-06-2022 09:34-0400 Body height 154.9 cm Lisa Tsang APRN.ASSET PROTECTION PROFESSIONAL Work Phone: [facility] 04-06-2022 09:34-0400 Body weight 97.07 kg Lisa Tsang APRN.ASSET PROTECTION PROFESSIONAL Work Phone: [facility] 04-06-2022 09:34-0400 Diastolic blood pressure 98 mm[Hg] Lisa Tsang APRN.ASSET PROTECTION PROFESSIONAL Work Phone: [facility] 04-06-2022 09:34-0400 Systolic blood pressure 162 mm[Hg] Lisa Tsang APRN.ASSET PROTECTION PROFESSIONAL Work Phone: [facility] Encounters Encounter Date Encounter Type Care Provider Facility Start: 09-23-2023 End: 09-23-2023 ambulatory LOUIE CHAVEZ Facility:[facility] Start: 08-26-2023 End: 08-27-2023 ambulatory COLEEN HERNANDEZ Facility:[facility] Start: 08-24-2023 End: 08-24-2023 ambulatory LOUIE CHAVEZ Facility:[facility] Start: 08-19-2023 End: 08-19-2023 ambulatory COLEEN HERNANDEZ Facility:[facility] Start: 07-25-2023 End: 07-25-2023 ambulatory LOUIE CHAVEZ Facility:[facility] Start: 07-19-2023 End: 07-19-2023 ambulatory Uro Grinding Machine Operator Automatic Nurse Shane 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 [employer] [facility] Procedures Date Procedure Procedure Detail Performing Clinician Start: 06-22-2023 Urnls dip stick/tabl et rgnt auto w/o microscopy Louie Chavez MD Work Phone: Start: 05-06-2023 Screening mammograph y bi 2-view breast inc cad Lisa Tsang APRN.ASSET PROTECTION PROFESSIONAL Work Phone: Start: 04-27-2023 Dxa bone density catherine dy 1/> sites axial skel Lisa Tsang APRN.ASSET PROTECTION PROFESSIONAL Work Phone: Start: 04-02-2022 End: 04-02-2022 Screening mammography bi 2-view breast inc cad Lisa Tsang APRN.ASSET PROTECTION PROFESSIONAL Work Phone: Start: 03-31-2021 Mammography Lisa acuna APRN.ASSET PROTECTION PROFESSIONAL Work Phone: Start: 01-22-2015 Colonoscopy Lisa acuna APRN.ASSET PROTECTION PROFESSIONAL Work Phone: Start: 12-28-2011 Lipid 1996 panel - S luz marina or Plasma Louie Chavez MD Work Phone: Plan of Treatment Date Care Activity Detail Author Start: 05-06-2024 Mammography Mammogram Screening [facility] Start: 06-22-2023 End: 09-21-2023 CBC panel - Blood by Automated count CBC Lab Routine Rectocele Cystocele, midline Vaginal vault prolapse Expected: 06/22/2023, Expires: 09/21/2023 [facility] Work Phone: Payers Date Payer Category Payer Unknown [id number] 2019 Unknown MMO MMO [employer] [id number] 2019-Present [phone] [address] [place] [address] PPO [id number] 2019 Unknown [id number] 1959 Unknown [id number] Social History Date Type Detail Facility Start: 04-06-2022 Tobacco smoking stat us NHIS Never smoked tobacco [facility] Start: 04-03-2021 End: 07-15-2023 Alcohol intake Current drinker of alcohol (finding) [facility] Start: 04-03-2021 End: 05-19-[address] [facility] Work Phone: Start: 03-26-2020 History SDOH Financial 5 [facility] Start: 03-26-2020 History SDOH Food Worry 1 [facility] Start: 03-26-2020 History SDOH Transpo rt Med 2 [facility] Start: 1960 Sex Assigned At Female C [facility] Work Phone: Start: 04-06-2022 Tobacco use and exposure Smokeless tobacco non-user [facility] Work Phone: Start: 05-19-2023 End: 06-22-[address] [facility] Work Phone: How hard is it for y ou to pay for the very basics like food, housing, medical care, and heating Not hard at all [facility] Work Phone: (I/We) worried wheth er (my/our) food would run out before (I/we) got money to buy more. Never true [facility] Work Phone: Start: 02-28-2017 Gender identity Identifies as female gender (finding) [facility] Work Phone: Start: 02-28-2017 Sexual orientation Heterosexual (fin ding) [facility] Work Phone: Clinical Notes 01-21-2022 to 09-23-2023 Riya Hawley E - 07/19/2023 10:00 AM ESTPatient InstructionsAshley Malhotra APRN.ASSET PROTECTION PROFESSIONAL - 07/15/2023 11:19 AM Ashley Almageur APRN.ASSET PROTECTION PROFESSIONAL - 07/15/2023 10:40 AM ESTPatient Instructions Note Date & Type Note Facility 09-23-2023 Note HNO ID: [id number] Author: LOUIE CHAVEZ MD Service: ? Author Type: Physician Type: Progress Notes Filed: 09/23/2023 15:21 Note Text: Video visit follow up Nura Soni is a 63 year old female who presents for a 8 Week post-op check s/p SURGERY/PROCEDURE(S): Sacrospinous ligament suspension Posterior colporrhaphy Perineorrhaphy Enterocele repair Cystoscopy Post-op complications: no Bleeding: no Pain: no If you had pain related to your prolapse before surgery, has your pain resolved? Not Applicable Abnormal vaginal discharge: yes Pathology: n/a Today: she is still taking Vesicare daily. She denies dry eyes, mouth constipation. Denies any LUKE or UUI. BM normal. Some dyspareunia in one spot with intercourse. OBJECTIVE: No vitals, video visit GEN: NAD Resp: effort normal A/P: Nura is a 63yo with OAB Possible symptoms improved s/p SSLS/ID, cysto Plan to trial being off vesicare. If symptoms don't return - can stay off. If symptoms return, can reorder the medication Cystocele, VVP S/p procedure as above Has one more follow up next month, she will keep her appt Recommend at least yearly to every 2 year exams to follow Nura in agreement with the plan Louie Chavez MD [facility] 08-24-2023 Note HNO ID: [id number] Author: Louie Chavez MD Service: ? Author Type: Physician Type: Progress Notes Filed: 08/24/2023 12:36 PM Note Text: Female Pelvic Medicine AND Reconstructive Surgery Post-Op Visit Nura Soni is a 63 year old female who presents for a 4 Week post-op check s/p SURGERY/PROCEDURE(S): Sacrospinous ligament suspension Posterior colporrhaphy Perineorrhaphy Enterocele repair Cystoscopy Post-op complications: no Bleeding: no Pain: no If you had pain related to your prolapse before surgery, has your pain resolved? Not Applicable Abnormal vaginal discharge: yes Pathology: n/a She denies urinary issues postop. Denies bowel issues. PFDI-20 Do you: Usually exper nce pressure in the lower abdomen? No (0) Usually experience heaviness or dullness in the pelvic area? Yes, not at all bothersome (1) Usually have a bulge or something falling out that you can see or feel in your vaginal area? No (0) Ever have to push on the vagina or around the rectum to have or complete a bowel movement? No (0) Usually experience a feeling of incomplete bladder emptying? No (0) Ever have to push up on a bulge in the vaginal area with your fingers to start or complete urination? No (0) Feel you need to strain too hard to have a bowel movement? No (0) Feel you have not completely emptied your bowels at the end of a bowel movement? No (0) Usually lose stool beyond your control if your stool is well formed? No (0) Usually lose stool beyond your control if your stool is loose? Yes, not at all bothersome (1) Usually lose gas from the rectum beyond your control? No (0) Usually have pain when you pass your stool? No (0) Experience a strong sense of urgency and have to berg to the bathroom to have a bowel movement? Yes, not at all bothersome (1) Does part of your bowel ever pass through the rectum and bulge outside during or after a bowel movement? No (0) Usually experience urine leakage associated with a feeling of urgency, that is, a strong sensation of needing to go to the bathroom? Yes, not at all bothersome (1) Usually experience urine leakage related to coughing, sneezing or laughing? Yes, not at all bothersome (1) Usually experience small amounts of urine leakage (that is, drops)? No (0) Usually experience difficulty emptying your bladder? Yes, not at all bothersome (1) Usually experience pain or discomfort in the lower abdomen or genital region? No (0) Overall, how satisfied were you with your postoperative pain medication? Very satisfied With regard to your expectations before surgery, did you have the amount of pain you expected, more pain, or less pain? Much less pain than I expected Was the preoperative teaching you had about pain expectations helpful? Yes Were the discharge instructions you received about pain medications helpful? Yes [employer] Counter Person offered:Patient declines OBJECTIVE: There were no vitals taken for this visit. General: Well appearing, alert, in no acute distress, well-hydrated, well nourished. Abdomen: Abdomen soft, non-tender Pelvic: Ext. Genitalia, No lesions or other abnormalities, Perineal incision healing well Vagina: Good vaginal support and Suture material present Cervix: Absent Urethra: Normal Bimanual: No tenderness Rectovaginal: Deferred ASSESMENT: Nura Soni is a 63 year old female who is post-op; stable and doing well post-operative course uncomplicated PLAN: May resume normal activities. May resume intercourse in 2-4 weeks. Follow up for 3mo postop check. Louie Chavez MD [facility] 08-19-2023 Note HNO ID: [id number] Author: Dayanara Rodgers MD Service: ? Author Type: Physician Type: Progress Notes Filed: 08/19/2023 10:47 AM Note Text: Heart and Vascular [place] [facility] SECTION OF CARDIAC PACING and ELECTROPHYSIOLOGY OUTPATIENT VISIT DATE August 19, 2023 OUTPATIENT VISIT TYPE NEW PRIMARY CARE PHYSICIAN: [address] [place] [address] REFERRING PHYSICIAN: SELF CARD New Patient Consult (Music Coordinator ref for a-fib) HISTORY OF PRESENT ILLNESS: Nura Soni is a 63 year old year old FEMALE and is referred for management of AF. She has a history of White coat syndrome, Hypothyroidism and recently 07/25/23 underwent surgery for vaginal vault prolapse and rectocele with colporrhaphy and perineorrhaphy She is on metoprolol tartarate 25 bid, atorvastatin, lisinopril, asa and levothyroxine She says that her blood pressure control has not been adequate off-and-on over the last couple of years and hypertension was detected about 2018 She woke up on the morning of 08/14/2023 rapid palpitations. Was not lightheaded but did not feel her usual self her Apple Watch showed heart rate in the 150s it persisted and so went to [place] emergency room. There she was diagnosed as having atrial fibrillation and given Cardizem IV 20 mg which terminated her atrial arrhythmia. Also initially her systolic was 210 x 135 diastolic and subsequently gradually went down to 144 x 70. Metoprolol was added 25 mg twice a day to her lisinopril. She says that she is fairly active and able to do all her activities of daily living climb up and down steps several times a day. Prior to her recent gynecological surgery she used to exercise 3 days in the gym on a treadmill for 30 minutes with a slight incline and at a brisk walking pace. On other days she will do weights and also a step routine on some days. During this activity no chest pain shortness of breath. She keeps herself well-hydrated. No prior heart attack stroke congestive heart failure blood clots cancer No history of sleep apnea although her thinks she may have it. She is taking her medicines regularly. 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 No smoking may have 1 or 2 drinks a few days a week Family history -unknown as she was adopted PAST MEDICAL HISTORY Diagnosis Date Broken ankle fracture Broken foot De Quervain's disease (radial styloid tenosynovitis) H/O thyroid nodule Hypertension Hypothyroid Osteopenia 01/15/2013 White coat syndrome without diagnosis of hypertension PAST SURGICAL HISTORY Procedure Laterality Date ADENOIDECTOMY PRIMARY Adenoidectomy HYSTEROSCOPY, DIAGNOSTIC (SEPARATE Hysteroscopy PAST SURGICAL HISTORY OF 02/26/2013 right repair foot/ankle fracture TONSILLECTOMY PRIMARY/SECONDARY Tonsillectomy TOTAL ABDOMINAL HYSTERECT W/WO RMVL TUBE OVARY 08/29/2000 Hysterectomy, TAHBSO Family History Adopted: Yes Problem Relation Age of Onset other (Other) Other adopted unknown SOCIAL HISTORY No social history on file. MEDICATIONS: metoprolol tartrate, short acting, (LOPRESSOR) 25 mg tablet Take 25 mg by mouth two times a day. Magnesium 200 mg tab Take 400 mg by mouth once daily. diphenhydrAMINE (BENADRYL) 25 mg capsule Take 25 mg by mouth every 6 hours as needed. melatonin 5 mg tablet Take 5 mg by mouth daily at bedtime. FIBER CHOICE ORAL Take by mouth once daily. esomeprazole (NEXIUM) 20 mg capsule Take 20 mg by mouth once daily. Lactobacillus acidophilus (PROBIOTIC ACIDOPHILUS ORAL) Take by mouth once daily. Cholecalciferol, Vitamin D3, (VITAMIN D) 25 mcg (1,000 unit) cap Take 1,000 Units by mouth once daily. atorvastatin (LIPITOR) 20 mg tablet Take 20 mg by mouth once daily. lisinopril (ZESTRIL) 30 mg tablet Take 30 mg by mouth once daily. hydrocortisone 2.5 % cream APPLY CREAM TO RASH IN EARS ONCE DAILY NEEDED WHEN FLARED levothyroxine (SYNTHROID) 100 mcg tablet Take 100 mcg by mouth daily before breakfast. aspirin(ASPIR-LOW 81 MG TAB) Take one(1) tablet daily. CALCIUM 600 600 MG TAB Take one(1) tablet twice daily. DAILY MULTIVITAMIN TAB ibuprofen (MOTRIN) 600 mg tablet Take 1 tablet by mouth every 6 hours as needed for pain. oxyCODONE IR (ROXICODONE) 5 mg immediate release tablet Take 1 tablet by mouth every 6 hours as needed for pain. solifenacin (VESICARE) 5 mg tablet Take 1 tablet by mouth once daily. (Patient not taking: Reported on 07/14/2023) REVIEW OF SYSTEMS: General - Appetite is normal. No fever chills Respiratory - No cough wheezing pleuritic pain GI - No nausea vomiting diarrhea No burning micturition. Hematology - No external bleeding. No recent diagnosis of cancer Neurology - No falls, No new unilateral numbness tingling weakness Musculoskeletal - No joint (more content not included)... [facility] 07-25-2023 Note HNO ID: [id number] Author: Vicki Villegas APRN.WATERSHED MANAGER Service: Anesthesiology Author Type: Nurse Pantograph Engraver Type: Anesthesia Procedure Notes Filed: 07/25/2023 8:24 AM Note Text: ANESTHESIOLOGY PROCEDURE NOTE Airway General Information Procedure Start Time/Medication Administration: 07/25/2023 8:13 AM Patient location during procedure: OR Timeout Performed Pre-procedure: timeout performed Patient identity confirmed: arm band Staffing Anesthesiologist: Epifanio Choe MD WATERSHED MANAGER: Vicki Villegas APRN.WATERSHED MANAGER Performed by: SEA Indications and Patient Condition Indications for airway management: anesthesia Preoxygenated: yes anesthesia circuit Patient position: sniffing Method: asleep Final Airway Details Final airway type: endotracheal airway Final Endotracheal Airway: ETT Cuffed: yes Successful intubation technique: video laryngoscopy Devices used: Quiroz Endotracheal tube insertion site: oral Blade: Cathy Blade size: #3 ETT size (mm): 7.5 Measured from: lips Measurement (cm): 22 Placement verified by: chest auscultation and capnometry Cormack-Lehane Classification: grade I - full view of glottis Number of attempts at approach: 1 SIGNATURE: Vicki Villegas APRN.WATERSHED MANAGER PATIENT NAME: Nura Soni DATE: July 25, 2023 TIME: 8:23 AM CSN: [id number] [facility] 07-19-2023 Note HNO ID: [id number] Author: Riya Hawley Service: ? Author Type: ? Type: Progress Notes Filed: 07/19/2023 10:18 AM Note Text: DATE OF SERVICE: 07/19/2023 PROBLEM: Nura Soni presents for pre-op teaching. PRE-OP DIAGNOSIS: Rectocele SCHEDULED SURGERY AND DATE: 07/25/23 posterior colporrhaphy, perineorrhaphy, possible SSLS, cystoscopy, procedures as indicated at [place] PRIMARY SURGEON: Louie Chavez MD NURSING PREOP ASSESSMENT: Fevers, chills, cough, or nasal congestion: No Vaginal itching, burning, discharge, or odor: No Pain with urination, frequency, urgency, cloudy or foul smelling urine: No If yes to any of the above then MD notified: Not Applicable ADVANCED CARE PLANNING: Does the patient have an advanced directive: No Does [facility] have a copy of the patient's advanced directive: No Was advanced directive given to the patient: No PATIENT LEARNING ASSESSMENT: Individual patient/family learning needs evaluated and addressed: Yes Cognitive ability: Alert and oriented Motivation to learn: Eager Factors affecting learning: None Physical limitations affecting learning: None Patient learns best by: Multiple Methods Method of instruction: Teach Back , Individual instruction Written instruction - handouts Verbal instruction Instructions provided to: Patient via telephone. Written material provided prior to education appointment. Family support: Unable to assess - Family not present PRE- AND POST-OPERATIVE TEACHING Pre-operative teaching and supplemental material provided and reviewed with patient: Your Surgical Guide Book Written pre-op and post-op instructions Antibacterial soap: given to patient prior to preop teaching appointment Pre-operative instructions provided and reviewed with patient/family: No eating, drinking, or smoking after midnight prior to surgery unless otherwise directed No alcohol the day before surgery Medications as prescribed by anesthesia, internal medicine, surgeon, or SOFTBALL UMPIRE Stop NSAIDs, Aspirin (ASA), vitamins, herbal supplements, herbal teas, and diet pills 7-10 days prior to surgery OK to take tylenol prn pain unless otherwise directed by physician Call surgery coordinators if any other questions about surgery date or pre-op appointments Bowel prep instructions: Magnesium Citrate per protocol Day of surgery instructions provided and reviewed with patient/family: Arrival time (call surgical coordinators on the office day prior to surgery for verification) No jewelry, body piercing, makeup, contacts, lotions, nail kittitian on fingers, or anything in hair on arrival to surgery Wear low healed shoes and loose fitting clothing Leave all valuables at home or with a family member Directions to [facility] [place] Parking/parking validation on the day prior to surgery Admission/check in (Report to Main Entrance for surgery) Holding area Placement of IV Surgical positioning Family waiting area Surgical recovery room Post-operative instructions provided and reviewed with patient/family: SEE PATIENT INSTRUCTION SECTION FOR DETAILS. ACTIVITY - No heavy lifting (>5-10 lbs), no pushing/pulling, OK to climb stairs DRIVING - No driving for 24 hours or while taking narcotics, OK to ride in a car. DIET - Advance diet as tolerated and as ordered by MD, drink 8 glasses of water a day, eat a diet high in protein and fiber unless otherwise directed by MD. CATHETER - Will be inserted during surgery, you may go home with a catheter for 7-10 days and will have to come back to the office for a voiding trial, UTI symptoms reviewed and patient instructed to notify MD of any of these symptoms. INCISION CARE - Keep incision clean and dry, mac to be removed 7-10 days after surgery, steristrips do not need to be removed by MD BATHING - OK to shower after surgery unless otherwise directed by MD, no tub baths. PAIN MEDICATION - IV pain medication after surgery, IV AMMONIA REFRIGERATION WORKER if ordered by MD, discharged home with a prescription for PO pain medication, pain management after surgery, side effects of pain medication (including constipation, dizziness, drowsiness, and medication interactions). VAGINAL CARE - Pelvic rest x6 weeks unless otherwise directed by MD. DVT PROPHYLAXIS - Early ambulation, SCDs, injectable anticoagulants (heparin, lovenox, etc) RESPIRATORY - Incentive spirometer, coughing/deep breathing exercises, ambulation. SYMPTOMS TO NOTIFY MD - Fever, chills, nausea, vomiting, increased or severe pain, heavy vaginal bleeding, foul smelling vaginal drainage, pain or swelling in extremities. URGENT SYMPTOMS - Call 911 or go to ER if any shortness of breath, difficulty breathing, or chest pain. HOW TO CONTACT PHYSICIAN - Physician's office phone number given to patient, if after hours patient instructed to call back hoe machine operator and ask for director utilization management event security officer resident. REE program offered to patient: (more content not included)... [facility] 07-19-2023 History of Presen t illness Narrative DATE OF SERVICE: 07/19/2023 PROBLEM: Nura Soni presents for pre-op teaching. PRE-OP DIAGNOSIS: Rectocele SCHEDULED SURGERY AND DATE: 07/25/23 posterior colporrhaphy, perineorrhaphy, possible SSLS, cystoscopy, procedures as indicated at [place] PRIMARY SURGEON: Louie Chavez MD NURSING PREOP ASSESSMENT: Fevers, chills, cough, or nasal congestion: No Vaginal itching, burning, discharge, or odor: No Pain with urination, frequency, urgency, cloudy or foul smelling urine: No If yes to any of the above then MD notified: Not Applicable ADVANCED CARE PLANNING: Does the patient have an advanced directive: No Does [facility] have a copy of the patient's advanced directive: No Was advanced directive given to the patient: No PATIENT LEARNING ASSESSMENT: Individual patient/family learning needs evaluated and addressed: Yes Cognitive ability: Alert and oriented Motivation to learn: Eager Factors affecting learning: None Physical limitations affecting learning: None Patient learns best by: Multiple Methods Method of instruction: Teach Back , Individual instruction Written instruction - handouts Verbal instruction Instructions provided to: Patient via telephone. Written material provided prior to education appointment. Family support: Unable to assess - Family not present PRE- AND POST-OPERATIVE TEACHING Pre-operative teaching and supplemental material provided and reviewed with patient: Your Surgical Guide Book Written pre-op and post-op instructions Antibacterial soap: given to patient prior to preop teaching appointment Pre-operative instructions provided and reviewed with patient/family: No eating, drinking, or smoking after midnight prior to surgery unless otherwise directed No alcohol the day before surgery Medications as prescribed by anesthesia, internal medicine, surgeon, or SOFTBALL UMPIRE Stop NSAIDs, Aspirin (ASA), vitamins, herbal supplements, herbal teas, and diet pills 7-10 days prior to surgery OK to take tylenol prn pain unless otherwise directed by physician Call surgery coordinators if any other questions about surgery date or pre-op appointments Bowel prep instructions: Magnesium Citrate per protocol Day of surgery instructions provided and reviewed with patient/family: Arrival time (call surgical coordinators on the office day prior to surgery for verification) No jewelry, body piercing, makeup, contacts, lotions, nail kittitian on fingers, or anything in hair on arrival to surgery Wear low healed shoes and loose fitting clothing Leave all valuables at home or with a family member Directions to [facility] [place] Parking/parking validation on the day prior to surgery Admission/check in (Report to Main Entrance for surgery) Holding area Placement of IV Surgical positioning Family waiting area Surgical recovery room Post-operative instructions provided and reviewed with patient/family: SEE PATIENT INSTRUCTION SECTION FOR DETAILS. ACTIVITY - No heavy lifting (>5-10 lbs), no pushing/pulling, OK to climb stairs DRIVING - No driving for 24 hours or while taking narcotics, OK to ride in a car. DIET - Advance diet as tolerated and as ordered by MD, drink 8 glasses of water a day, eat a diet high in protein and fiber unless otherwise directed by MD. CATHETER - Will be inserted during surgery, you may go home with a catheter for 7-10 days and will have to come back to the office for a voiding trial, UTI symptoms reviewed and patient instructed to notify MD of any of these symptoms. INCISION CARE - Keep incision clean and dry, mac to be removed 7-10 days after surgery, steristrips do not need to be removed by MD BATHING - OK to shower after surgery unless otherwise directed by MD, no tub baths. PAIN MEDICATION - IV pain medication after surgery, IV AMMONIA REFRIGERATION WORKER if ordered by MD, discharged home with a prescription for PO pain medication, pain management after surgery, side effects of pain medication (including constipation, dizziness, drowsiness, and medication interactions). VAGINAL CARE - Pelvic rest x6 weeks unless otherwise directed by MD. DVT PROPHYLAXIS - Early ambulation, SCDs, injectable anticoagulants (heparin, lovenox, etc) RESPIRATORY - Incentive spirometer, coughing/deep breathing exercises, ambulation. SYMPTOMS TO NOTIFY MD - Fever, chills, nausea, vomiting, increased or severe pain, heavy vaginal bleeding, foul smelling vaginal drainage, pain or swelling in extremities. URGENT SYMPTOMS - Call 911 or go to ER if any shortness of breath, difficulty breathing, or chest pain. HOW TO CONTACT PHYSICIAN - Physician's office phone number given to patient, if after hours patient instructed to call back hoe machine operator and ask for director utilization management event security officer resident. REE program offered to patient: No Additional teaching as indicated by patient/family learning needs. PATIENT LEARNING EVALUATION & FOLLOW UP PLAN: Patient and/or family express understanding of upcoming surgery, pre-operative preparation, the operative process, and post-operative instructions. Follow up plan: Complete - No need for follow-up Patient has a post-op appointment scheduled: Yes Referral (recommentation): None Educator: Riya Hawley [facility] documented in this encounter [facility] 07-19-2023 Instructions Riya Hawely - 07/19/2023 8:15 AM EST Images from the original note were not included. HELPFUL PRE-SURGICAL INFORMATION Preparing your skin for surgery Your doctor has asked that you use a special type of soap before surgery, which will help prevent infections after surgery. This soap is called Chlorhexidine, and is sold as Hibiclens, Exidine, and Betasept. You will need a 4 oz. bottle. You will use this soap to wash your body from the neck down. DO NOT use the soap on your head or face. Directions: Use 1/2 of the 4 oz. bottle to wash your body in the shower the night before surgery. Use the other 1/2 bottle to wash your body in the shower the morning of your surgery. DO NOT shave the skin on your belly, genitals, or upper thighs for several days before your surgery. Bowel preparation You will need one 10 oz bottle of Magnesium Citrate saline laxative Start the day prior to surgery Drink the Magnesium Citrate at 12:00 pm Continue with clear liquids for the rest of the day [clear broth, popsicles, Jell-O, coffee or tea (as long as there is no cream or milk added), Gatorade, Crystal light]. Nothing to eat or drink after midnight the night before surgery Other information It is your responsibility to call your primary care or cardiology office to make an appointment if they require seeing you for Medical Clearance. This is at the discretion of each physician. Completed Medical Clearance forms must be faxed or dropped off to our office at least 72 hours prior to your surgery date. For your personal safety, you must be accompanied by a responsible person to drive you home. YOU MAY NOT TAKE A BUS, SCAT, OR CAB. You will need to get the following supplies at the pharmacy before your surgery: Prescriptions Stool softener (Colace or generic docusate sodium) Medications Blood Thinners- for example, Aspirin, baby Aspirin, Coumadin, Heparin, Plavix, Vitamin E, Multivitamin, Fish Oil, Flax Seed, Nicholas, Ginkgo, Ginseng, Minoo's Wort, Tumeric, and anti-inflammatory medications including Motrin, Advil, Aleve, etc. MUST be discontinued 7 days prior to surgery. You are responsible for contacting the physician who is monitoring these medications to let them know you will be stopping them during this time. If your physician requires a different plan of action, please contact our office. Diabetic Medications- If you are taking any form of Metformin or Glucophage,or insulin, please consult your primary care physician for directions on holding these medications prior to surgery. Continue to take all other scheduled medications, unless your surgeon instructs you otherwise. You will not be allowed to eat or drink after midnight before your surgery - however, you may take your scheduled oral medications with a sip of water - just enough to get the medications down. Stretching Exercises Starting 5 days before surgery, we recommend that you perform stretching exercises to decrease pain after surgery. We recommend stretching at least 3 times per day every day before surgery. Stretch 1: While lying on your back on the bed or a floor mat Hug your RIGHT knee up to your chest while your left leg is straight on the bed or floor. Hold for 10 seconds. Extend RIGHT leg and rest it on the bed or floor. Rest for 10 seconds. Repeat exercise with the LEFT leg. Hug both knees to chest. Hold for 10 seconds. Straighten both legs and rest them on the bed or floor. Stretch 2: While standing Bend forward at waist and let your arms hang down towards the floor. You may rest your arms on a table or counter for support. Hold for 10 seconds. PATIENT INSTRUCTIONS PRIOR TO SURGERY Please read these instructions carefully. Your surgery may be cancelled if you do not follow these instructions. GENERAL Do not wear jewelry, body piercing(s), makeup, nail kittitian, hairpins, or contacts on the day of surgery. Leave valuables and money at home or with family members. If you have Obstructive Sleep Apnea and use a CPAP/BiPAP machine, bring your mask, tubing, and machine with you on the day of surgery. INFECTION PREVENTION Please notify your doctor if you have any signs of an infection (i.e. fever, severe cough, nasal congestion, pain with urination, abnormal vaginal discharge, etc). Hand washing is extremely important in preventing infection (for both you as the patient and for the caregivers). HOSPITALIZATION Before you leave the hospital, you typically need to be able to eat/drink, urinate, and have your pain controlled with oral medication. Your surgeon or other members of your surgeon s team will discuss any other specific medical issues related to your discharge with you. Your surgeon may order intermittent compression sleeves. These are massaging leg pumps to help prevent blood clots after surgery. It is also very important that you walk as soon as possible and as frequently as possible after surgery. This will help decrease your risk of blood clots, exercise your lungs and speed up your recovery after surgery. If you are admitted to the hospital overnight, you will be given an incentive spirometer, which is a breathing machine that will help make sure that you are taking deep breaths and expanding your lungs while in the hospital. [facility] At the [facility], we have a multidisciplinary team of caregivers that includes fellows, residents, nurse practitioners (set up / operator), physician assistants (PAs), clinical nurse specialists (CNSs), nurses, medical assistants (MAs), patient care nursing assistants (PCNAs), social workers, field case manager and many others. We all have different roles and responsibilities but we all are here to help you. If you spend the night in the hospital, a physician from your care team will see you the day after your surgery. At times, scheduling does not permit your surgeon to see you in the hospital the day after surgery. If this occurs, another physician on the urogynecology care team will see you in the hospital. THE DAY BEFORE SURGERY If you are having surgery at [facility]: On the day before your surgery, you must call [phone] to find out your surgery arrival time. If you are having [facility] at a [facility] ([facility], [facility]): You will receive a call the day before surgery to give you your surgery arrival time. THE DAY OF SURGERY/CHECK IN Surgery Location Parking Check-in Location [facility] [address] [place], [place] P Garage P[address]20 surgery center (unless otherwise instructed) [facility] [address] [place], [place] Parking garage connected to hospital or conical mixer Registration desk, first floor, main lobby [facility] [address] [place], [place] Parking lot in front of building [address] (elevator to lower level) [facility] [address] [place], [place] Parking garage next to hospital or [facility] Atrium, W1 Surgical Waiting Desk [facility] [address] [place], [place] Parking garage across from main entrance. Main entrance [facility] [address], [place] Park in the back of the hospital, go to Entrance A. Take elevators to 1st floor and enter into the Surgery Department UROGYNECOLOGY POSTOP INSTRUCTIONS ACTIVITY No heavy lifting/pushing/pulling for 4-6 weeks. Do not lift anything more than about 5-10 lbs (such as laundry, groceries, children, or pets), vacuum, push heavy doors or grocery carts, etc. You may climb stairs as tolerated. Do not put anything in the vagina for 6 weeks after surgery unless otherwise instructed by your doctor (including tampons, douching, sexual intercourse, etc). No driving while you are taking narcotic pain medication, or until you feel that you are ready and can safely slam the brakes if needed. Avoid sitting or lying in bed for more than 2 hours at a time while you are awake to reduce your risk of blood clots. You may return to work when directed by your physician. Please contact your doctor if you need any return to work letters or medical leave paperwork to be completed. PAIN MANAGEMENT After you go home, you should take the prescribed acetaminophen (Tylenol) and ibuprofen (Motrin) as directed. We recommend rotating the timing of these medications so that you are taking one of these medications every 3 to [address], you can help prevent pain. After the first 72 hours, you can take these medications as needed. These should be the first medications you use for pain. Applying ice packs to your incisions (abdominal or vulvar/perineal) for 20 minutes as often as needed may also help. Some pain medications can cause constipation so you should take a stool softener (i.e. Colace) or laxative (i.e. Miralax) while you are on these medications (see the following section on constipation). You may have been prescribed an opioid medication, also known as a narcotic pill. This is usually oxycodone. You may be familiar with the medication Percocet, which is a combination of oxycodone and acetaminophen. These opiate medications have side effects like nausea or vomiting, constipation, and sleepiness. You should only take them if your pain is not controlled by ibuprofen and/or acetaminophen. It is important to keep this stronger pain medication safely stored, as it is at great risk of being stolen or misused by family, friends, or even strangers. Please be sure to dispose of leftover pain medication after you have recovered. You may dispose of unused narcotic medications in the trash with an unpleasant substance such as coffee grounds or cat litter. You can also check FDA.gov to assess which medications can be safely flushed down the toilet. There are locations to dispose of unused medications at three [facility] locations: [facility] pharmacy, [facility] pharmacy, and the Pharmacy at the [facility] for [facility] (inside the parking garage on the first floor). CONSTIPATION You may not have a bowel movement for 3-5 days after surgery. This is normal. To help prevent constipation after your surgery, you may receive prescriptions to take including the following: Colace (docusate sodium) 100 mg (1 capsule) two times a day Miralax (polyethylene glycol) 17 g (1 measured capful or 1 packet) once a day. If you have not had a bowel movement 3 days after surgery, you may take the Miralax two times a day. If you have any discomfort because of the need to have a bowel movement, you may add milk of magnesia or magnesium citrate (available at your local pharmacy without a prescription) at any time. Do not take milk of magnesia or magnesium citrate if you have kidney failure. If you have loose or watery stools, stop taking the medications and call your doctor s office. OTHER MEDICATIONS If you were prescribed vaginal estrogen, you should resume it in 7-10 days after surgery unless you were instructed otherwise. Please check your discharge instructions about when to resume other medications. WOUND CARE If you have mac (abdominal incision), they need to be removed about 10-14 days after surgery. There will be dissolvable stitches under your skin that do not need to be removed. If you have band aids, steri strips, (paper tape) or a small gauze covered by tegarderm (clear tape) over your small abdominal incisions, these may be removed when you shower the day after surgery. Keep any incision clean, dry, and open to the air. Shower daily after surgery. No tub baths until wound is completely healed. If you have any abdominal incisions, wash them daily with a mild antibacterial soap and water. Pat your incision dry with a clean towel. Wash your hands frequently, especially before touching your incision, changing any dressings, after using the restroom, and before eating. GARCIA CATHETER CARE You may go home with a Garcia catheter in your bladder. You will need to follow up for a nurse visit within 3-10 days for removal. You will be called by the office to get this appointment if it is not listed below. General Principles on Catheter Care: Always wash your hands with soap and water before handling your catheter tubing or bag. It is important to empty your catheter bag before it gets too full. Keep the catheter tubing free of kinks and Garcia bag below the level of your bladder. Keep your genital region and catheter tubing clean. Instructions on Catheter Plug Use: A catheter plug is used to occlude the end of the catheter so that it can be disconnected from the drainage bag during the day. You may be sent home with catheter plugs. Your postop nurse will give you instructions on how to use the plug before going home. The Garcia catheter must be disconnected from its drainage tubing and bag. The plug can then be inserted into the open end of the catheter. The plug should fit snugly. While the plug is in place, your bladder will fill with urine. You must empty your bladder by removing the plug and draining the catheter over the toilet at least every 3 to 4 hours, or sooner if you feel an urge to urinate. After you have drained the catheter, replace the plug. The catheter should be reconnected to the drainage bag at night so that your bladder can continuously drain while you are sleeping. The plug can be washed every night before bedtime with soap and water. Store it in a clean plastic Ziploc bag when it is not in use. You can continue daytime catheter plugging until your scheduled voiding trial. WHAT TO EXPECT AT HOME Recovery from surgery is generally 4 weeks, but sometimes longer for more strenuous activity. It is normal to be very tired during this time. It is normal to have some drainage or a small amount of vaginal bleeding after surgery which may last up to 6 weeks. It is normal to have some bruising around the vaginal opening or on the buttocks if you had a vaginal surgery or around your incisions if you had an abdominal or laparoscopic surgery. If you had a laparoscopic surgery, you may experience gas pain, abdominal swelling, or shoulder pain for 24-72 hours after surgery. A warm shower, heating pad, and/or walking may help. WHEN TO CALL YOUR DOCTOR: If you cannot urinate for 3-5 hours or are only able to urinate small amounts. Fever (>100.4 F or 38.0 C) or chills. Incision problems such as redness, warmth, swelling, or foul-smelling drainage. Severe nausea or persistent vomiting. Bright red vaginal bleeding (soaking >1 pad/hour) Foul smelling vaginal drainage (note that some vaginal discharge is normal) Severe pain not relieved with pain medication. Pain and swelling in your legs, especially if it is only on one side and not the other. Pain with urination, cloudy urine, or foul-smelling urine. Or if you have any other problems or questions. CALL 911 OR GO TO THE EMERGENCY ROOM IF YOU HAVE: shortness of breath, difficulty breathing, or chest pain. UROGYNECOLOGY PHYSICIAN CONTACT INFORMATION During business hours, these numbers connect to your doctor s office. During the evening and weekends, these numbers will connect you to the answering service to speak with the doctor director utilization management. Dr. Louie Chavez Please DO NOT use [id number] for post-surgery concerns. documented in this encounter [facility] 07-18-2023 Note HNO ID: [id number] Author: Eliza Guzman APRN.CNP Service: General Surgery Author Type: Nurse Practitioner Type: Progress Notes Filed: 07/22/2023 9:24 AM Note Text: Summary: anesthesia Reviewed patient health history, METS 5.50, elevated BP in PAT of 193/106 with repeat 190/[address] Callejas in anesthesia. Per Dr. Callejas, OK to proceed with procedure as planned. Will evaluate BP DOS. [facility] 07-15-2023 Note HNO ID: [id number] Author: Ashley Malhotra APRN.ASSET PROTECTION PROFESSIONAL Service: ? Author Type: Nurse Practitioner Type: Progress Notes Filed: 07/15/2023 11:27 AM Note Text: RED DOT Please review with anesthesia re: elevated BP. Would they like medical clearance? Patient scheduled 07-25-[address] Chavez for Colporrhaphy with general anesthesia. Elevated blood pressure reading without diagnosis of hypertension tx with Lisinopril BP elevated in PST today 193/106, states BP always high at doctor visits, Patient took Lisinopril this AM Recheck 190/90 Instructed to take AM DOS with a sip of water Obesity, Class II, BMI 35-39.9 BMI 37.79 Ashraf Activity Status Index: METS: Climb a flight of stairs or walk up a hill (5.50 METs) DASI Score: 5.5 Patient denies any chest pain or undue shortness of breath with the above physical activity. ARISCAT Score: Age: 51-80 Preoperative SpO2: >=96% Respiratory infection in the last month: No Preoperative anemia: No Surgical incision: peripheral Duration of surgery: >3 hrs Emergency procedure: No ARISCAT Score: 26 ANESTHESIA FINDINGS: Intubation History: No history of difficult intubation Significant Anesthesia Considerations: none Airway History: No history of difficult airway BP 193/106[190/90 recheck[ Pulse 66 Temp 98.1 Resp 16 Ht 5' 1 (1.55m) Wt 200 lb (90.7kg) SpO2 100% BMI 37.81 kg/(m2). Recheck BP 190/90 [facility] 07-15-2023 History of Presen t illness Narrative RED DOT Please review with anesthesia re: elevated BP. Would they like medical clearance? Patient scheduled 07-25-[address] Chavez for Colporrhaphy with general anesthesia. Elevated blood pressure reading without diagnosis of hypertension tx with Lisinopril BP elevated in PST today 193/106, states BP always high at doctor visits, Patient took Lisinopril this AM Recheck 190/90 Instructed to take AM DOS with a sip of water Obesity, Class II, BMI 35-39.9 BMI 37.79 Ashraf Activity Status Index: METS: Climb a flight of stairs or walk up a hill (5.50 METs) DASI Score: 5.5 Patient denies any chest pain or undue shortness of breath with the above physical activity. ARISCAT Score: Age: 51-80 Preoperative SpO2: >=96% Respiratory infection in the last month: No Preoperative anemia: No Surgical incision: peripheral Duration of surgery: >3 hrs Emergency procedure: No ARISCAT Score: 26 ANESTHESIA FINDINGS: Intubation History: No history of difficult intubation Significant Anesthesia Considerations: none Airway History: No history of difficult airway BP 193/106[190/90 recheck[ Pulse 66 Temp 98.1 Resp 16 Ht 5' 1 (1.55m) Wt 200 lb (90.7kg) SpO2 100% BMI 37.81 kg/(m^2). Recheck BP 190/90 documented in this encounter [facility] 07-15-2023 History and physical note HISTORY AND PHYSICAL EXAMINATION SERVICE DATE: 07/15/2023 SERVICE TIME: 11:17 AM PRIMARY CARE PHYSICIAN: [facility] Assessment Preop examination medical conditions which may affect the guru-operative course were addressed in the visit today. Elevated blood pressure reading without diagnosis of hypertension tx with Lisinopril BP elevated in PST today 193/106, states BP always high at doctor visits Recheck 190/90 Instructed to take AM DOS with a sip of water Obesity, Class II, BMI 35-39.9 BMI 37.79 Ashraf Activity Status Index: METS: Climb a flight of stairs or walk up a hill (5.50 METs) DASI Score: 5.5 Patient denies any chest pain or undue shortness of breath with the above physical activity. ARISCAT Score: Age: 51-80 Preoperative SpO2: >=96% Respiratory infection in the last month: No Preoperative anemia: No Surgical incision: peripheral Duration of surgery: >3 hrs Emergency procedure: No ARISCAT Score: 26 ANESTHESIA FINDINGS: Intubation History: No history of difficult intubation Significant Anesthesia Considerations: none Airway History: No history of difficult airway I - PHYSICAL EVALUATION AIRWAY Patient intubated: No. DENTAL Dental findings: teeth intact. II - ANESTHESIA PLAN Anesthetic Plan: general Beta Sherrie Monitoring Plan Post Procedure Analgesic Plan REASON FOR VISIT: Nura Soni is a 63 year old female who is scheduled for Procedure(s): COLPORRHAPHY POSTERIOR (N/A) CYSTOSCOPY (N/A) FIXATION LIGAMENT SACROSPINOUS (Pending) CYSTOURETHROSCOPY FULGURATION BLADDER (Pending) at the request of Dr. Louie Chavez for. My final recommendation will be communicated back to the requesting physician by way of shared medical record or letter.Visit type: PST. The reason for this visit is to perform a comprehensive review of the patient's past medical history, assess their current health status and obtain any additional testing required based on anesthesia guidelines. We will also identify any potential anesthesia problems or contraindications to the planned procedure. 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 Elevated Blood Pressure Reading Without Diagnosis of Hypertension Nontoxic Multinodular Goiter Pure Hypercholesterolemia, Unspecified Vaginal Wall Prolapse Cystocele, Midline Rectocele Obesity, Class II, Bmi 35-39.9 Preop Examination COVID-19 Immunization Status Covid-19 Vaccine (Series Information) Completed 06/29/2023 Imm Admin: COVID-19 vaccine, age 12+ yr, season ([employer]) 06/08/2022 Imm Admin: COVID-19 vaccine, age 12+ yr, bivalent ([id number]) 07/29/2021 Imm Admin: COVID-19 original vaccine, age 12+ yr, monovalent ([email or web address] - PURPLE TOP) Only the first 3 history entries have been loaded, but more history exists. CHIEF COMPLAINT: Urinary problems HPI: Patient presents with urinary issues and prolapse for a couple years. Sx progressively worse. She has a vaginal bulge that she can see and feel. She reports having pelvic pressure symptoms and LUKE. Notes minimal urinary urgency and frequency. Also notes having loose stool. S/P hysterectomy 2000. REVIEW OF SYSTEMS: General: No weight loss, malaise or fevers. Neurological: Negative for: headaches, seizures and strokes. Respiratory: Denies coughing, wheezing, SOB Cardiovascular: HTN, HLD. Denies chest pain, palpitations, or CHF GI: Negative for: abdominal pain, nausea and vomiting. : See HPI. 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 Endocrine: Hypothyroid Negative for: diabetes mellitus. Hematology: Denies cancer or bleeding/clotting disorder Psych: Negative for: anxiety and depression. Musculoskeletal: Negative for: back pain, joint pain and swelling. PAST MEDICAL HISTORY Diagnosis Date Broken ankle fracture Broken foot De Quervain's disease (radial styloid tenosynovitis) H/O thyroid nodule Hypertension Hypothyroid Osteopenia 01/15/2013 White coat syndrome without diagnosis of hypertension PAST SURGICAL HISTORY Procedure Laterality Date ADENOIDECTOMY PRIMARY <AGE 12 Adenoidectomy HYSTEROSCOPY, DIAGNOSTIC (SEPARATE Hysteroscopy PAST SURGICAL HISTORY OF 02/26/2013 right repair foot/ankle fracture TONSILLECTOMY PRIMARY/SECONDARY <AGE 11 Tonsillectomy TOTAL ABDOMINAL HYSTERECT W/WO RMVL TUBE OVARY 08/29/2000 Hysterectomy, [facility]BS[facility] FAMILY HISTORY Adopted: Yes Problem Relation Age of Onset other (Other) Other adopted unknown Social History Tobacco Use Smoking status: Never Smokeless tobacco: Never Vaping Use Vaping Use: Never used Substance Use Topics Alcohol use: Yes Comment: Occasionally Drug use: No Prior to Admission medications as of 07/15/23 1048 Medication Sig Last Dose Taking Cholecalciferol, Vitamin D3, (VITAMIN D) 25 mcg (1,000 unit) cap Take 1,000 Units by mouth once daily. Yes atorvastatin (LIPITOR) 20 mg tablet Yes lisinopril (ZESTRIL) 30 mg tablet Take 30 mg by mouth once daily. Yes levothyroxine (SYNTHROID) 100 mcg tablet Take 100 mcg by mouth daily before breakfast. Yes aspirin(ASPIR-LOW 81 MG TAB) Take one(1) tablet daily. Yes CALCIUM 600 600 MG TAB Take one(1) tablet twice daily. Yes DAILY MULTIVITAMIN TAB Yes solifenacin (VESICARE) 5 mg tablet Take 1 tablet by mouth once daily. Patient not taking: Reported on 07/14/2023 hydrocortisone 2.5 % cream APPLY CREAM TO RASH IN EARS ONCE DAILY NEEDED WHEN FLARED No medication comments found. ALLERGIES No Known Allergies Objective PHYSICAL EXAM: General: alert and oriented and healthy appearance. Skin: Warm, dry, no diaphoresis. HEENT: Normocephalic, atraumatic, no lymphadenopathy. Cardiovascular: regular rate and rhythm, normal S1 and S2, no rub, murmurs, or gallop. Respiratory: normal breath sounds, no wheezes or crackles. Abdomen: Soft, nontender, BSx4. Extremities: no deformity, no edema or tenderness, no joint swelling or clubbing. Neurological: normal cognition and motor skills. PAIN ASSESSMENT: VITALS: BP 193/106[190/90 recheck[ Pulse 66 Temp 98.1 Resp 16 Ht 5' 1 (1.55m) Wt 200 lb (90.7kg) SpO2 100% BMI 37.81 kg/(m^2). BP recheck 190/90 Diagnostic tests reviewed for today's visit: Lab Value Units Date High Low HB No results within date range. HCT No results within date range. WBC No results within date range. PLT No results within date range. NA No results within date range. K No results within date range. GLUC No results within date range. BUN No results within date range. CREAT No results within date range. PTSEC No results within date range. INR No results within date range. APTT No results within date range. ALT No results within date range. AST No results within date range. TBILI No results within date range. TSH No results within date range. Lab Value Units Date High Low HCGQT No results within date range. UHCG No results within date range. HCG, BODY* No results within date range. Lab Value Units Date High Low ABORHD No results within date range. ABSCREEN No results within date range. No results found for: HBA1C Prepared for Surgery: CONSULTS: Planned Anesthetic: general The Following Tests/Procedures Have Been Initiated: No orders of the defined types were placed in this encounter. FAMILY HISTORY OF ANESTHESIA:No known history of adverse anesthetic event Anticoagulation: ASA 81mg, instructed to call surgeon for preop instructions Implantable Devices: Right Ankle hardware Assessment/Plan PLAN Planned Procedure: Procedure(s): COLPORRHAPHY POSTERIOR (N/A) CYSTOSCOPY (N/A) FIXATION LIGAMENT SACROSPINOUS (Pending) CYSTOURETHROSCOPY FULGURATION BLADDER (Pending) Pre-op testing-medical conditions which may affect the guru-operative course were addressed in the visit today. CONSULTS No consults pending The Following Tests/Procedures Have Been Initiated: CBC ordered in Epic per surgeon I spent a total of 45 minutes on the date of the service which included preparing to see the patient, [id number] patient care, completing clinical documentation, obtaining and/or reviewing separately obtained history, performing a medically appropriate examination, and counseling and educating the patient/family/caregiver. Instructions Given to Patient: Instructions located in the after visit summary. Patient given verbal and written preop instructions and voices comprehension and compliance. SIGNATURE: Ashley Malhotra APRN.CNP PATIENT NAME: Nura Soni DATE: July 15, 2023 TIME: 9:34 AM PAGER/CONTACT #: documented in this encounter [facility] 07-14-2023 Instructions Ashley Malhotra APRN.CNP - 07/14/2023 10:02 AM EST PATIENT PREOPERATIVE INSTRUCTIONS Louie Chavez MD has scheduled you for your procedure at this surgery center: [facility]: [phone], [address] [phone] Please read below carefully for your personalized instructions. Date of Surgery: July 25, 2023 Your surgeon's office will provide you with your ARRIVAL TIME for surgery. -If you have not received an arrival time by the afternoon before your surgery date, please follow up with your surgeon's office. - If you are scheduled for Tuesday surgery, please make sure you have your arrival time by Sixto afternoon. Blood Thinning Medications: - Stop NSAIDS (Ibuprofen, Advil, Aleve, Motrin, Celebrex, Mobic, etc.) 7 days before surgery, as directed by your surgeon. - Stop Vitamin E, fish oil, Ginko, Minoo's Wort, flax seed oil, multivitamins, CBD oil, marijuana and other over the counter herbals and dietary supplements 7 days before surgery. This would not apply to cancer patients who are prescribed Marinol or any other prescription form of marijuana or CBD. - If you take any of the following blood thinners, please contact your surgeon and the physician who prescribes it for you in order to get perioperative instructions as soon as possible: Aspirin,Coumadin, Plavix, Eliquis, Pradaxa, Xarelto, Lovenox, Brilinta, Effient, Savaysa, etc. Pain Medications: - You may take Tylenol (Acetaminophen) or any of your current prescribed pain medications that do not contain aspirin or NSAIDS as needed. Dietary Restrictions: - No solid food or liquids after midnight except medications listed below with a sip of water. Medications: Approved medications to take the morning of surgery with a sip of water: Lisinopril You may take BP, heart, thyroid, anxiety/depression, seizure, and pain medications excluding NSAIDS (see above list of NSAIDS) Use inhalers as prescribed. Please bring inhalers. Preoperative Medication Instructions for Patients with Diabetes Mellitus: Please follow up with the provider that manages your diabetes and how to prepare you for surgery. Do not take the morning of surgery; Trajenta, Metformin, Actos/Pioglitazone and Amaryl/Glimepiride. For the following Medications, please HOLD 2 DAYS PRIOR TO SURGERY: Glucotrol/Glipizide, Januvia/Sitagliptin, Glyburide, Prandin/Repaglinide, Starlix/Nateglinide, Symlin/Pramlintide, For the following Medications, please HOLD 3 DAYS PRIOR TO SURGERY: Canagliflozin/Invokana, Dapagliflozin/Farxiga ,Empagliflozin/Jardiance, Invokamet/canagliflozin and metformin, Xigduo XR/ dapagliglozin and metformin, Glyxambi/ empagliflozin and metformin, Syndardy/ empagliflozin and metformin For the following Medications, please HOLD 4 DAYS PRIOR TO SURGERY: Ertugliflozin/Steglatro For the following Medications, please HOLD 7 DAYS PRIOR TO SURGERY: GLP-1 AGONIST: Adlyxin (lixisenatide), Bydureon BCise (exenatide suspension), Byetta (exenatide), Mounjaro (tirzepatide), Ozempic (semaglutide injection), Rybelsus (semaglutide tablets), Tanzeum (albiglutide), Trulicity (dulaglutide), Victoza (liraglutide), Wegovy (semaglutide), Saxenda (liraglutide) Insulin Medication Instructions: Please follow up with the provider that manages your Insulin and how to prepare you for surgery. If you start any new medications after today's visit, please contact the surgeon's office. Important Reminders: - If you use CPAP/BIPAP, bring the machine with you to the surgery center. - If you are prescribed inhalers for breathing, continue using them AND bring them to the surgery center. - Candy, mints, gum and tobacco products are NOT permitted the morning of surgery. - Hearing aids, dentures and glasses may be worn the morning of surgery. - NO jewelry, body piercings, makeup, hairpins or contacts are to be worn the day of surgery. - NO lotion, creams, powders or deodorants on the skin the day of surgery -If you have a stimulator, implant or pump that requires a remote, please bring the remote with you the day of surgery. -Wear loose, comfortable clothing that will accommodate bandages. -Your length of stay will be determined by your surgeon - You will need to have someone else (Family or friend) drive you home once discharged from the hospital. You are not allowed to drive yourself home after surgery. Your ride home must be at least 18 years old or older. - YOU MUST HAVE A RESPONSIBLE CANDY COUNTER CLERK TO TAKE YOU HOME. A LICENSED FINAL EXPENSE AGENTS, CAB OR UBER CANDY COUNTER CLERK CANNOT BE MADE A RESPONSIBLE CANDY COUNTER CLERK. - You cannot stay in a hotel alone after outpatient surgery. You will not be permitted to have your surgery, if you do not have someone to take care of you. [facility]- Visitations are: Visitation hours are from 7 a.m. to 9 p.m. Pre- Surgery-Patients may have up to two visitors at a time. PACU-Patients may have up to 1-2 visitors at a time. If you develop symptoms such as a fever, cold, or flu, or have other changes to your health within TWO DAYS of scheduled surgery or the morning of surgery, please contact the surgery center above. Personal Belongings: - Leave ALL valuables and money at home or with family members. - You will need a form of ID and insurance card to check in the morning of surgery. - You will have to wear a hospital gown during your stay but if you wish to bring undergarments for after surgery you may. Ashley Malhotra APRN.KD documented in this encounter [facility] 06-22-2023 Note HNO ID: [id number] Author: Louie Chavez MD Service: ? Author Type: Physician Type: Progress Notes Filed: 06/22/2023 3:54 PM Note Text: Female Pelvic Medicine AND Reconstructive Surgery Consult CHIEF COMPLAINT: Nura Soni is a 63 year old referred for consultation regarding rectocele. She has had a hysterectomy. HISTORY OF PRESENT ILLNESS: She reports prolapse symptoms for at least a couple years, getting worse. She has noticed a vaginal bulge that she could see and feel. She reports having pelvic pressure symptoms. She does not manually reduce the bulge. She has not tried a pessary. She reports LUKE with coughing, laughing, and sneezing. She reports UUI, which is more bothersome. She does have symptoms of urinary urgency and frequency. She does not feel that she empties her bladder completely. She has not tried overactive bladder medications. Daytime frequency: 8-10 Nocturia: 1-2 Fluid intake: 2 cups of decaf coffee, and 2-4 bottles of water daily. She denies a history of UTIs. Today she denies any dysuria or hematuria. She reports occaisonal constipation. She reports fecal incontinence of loose gas/stool. She does take fiber supplements to help with her constipation. She reports vaginal dryness. She does not use vaginal estrogen. She is sexually active. She denies pain with intercourse. She is adopted and unsure of her family history. 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 Yes, not at all bothersome (1) Usually experience heaviness or dullness in the pelvic area? Yes, not at all bothersome (1) Usually have a bulge or something falling out that you can see or feel in your vaginal area? Yes, somewhat bothersome (2) Ever have to push on the vagina or around the rectum to have or complete a bowel movement? No (0) Usually experience a feeling of incomplete bladder emptying? Yes, moderately bothersome (3) Ever have to push up on a bulge in the vaginal area with your fingers to start or complete urination? No (0) Feel you need to strain too hard to have a bowel movement? Yes, somewhat bothersome (2) Feel you have not completely emptied your bowels at the end of a bowel movement? Yes, somewhat bothersome (2) Usually lose stool beyond your control if your stool is well formed? Yes, somewhat bothersome (2) Usually lose stool beyond your control if your stool is loose? Yes, somewhat bothersome (2) Usually lose gas from the rectum beyond your control? Yes, somewhat bothersome (2) Usually have pain when you pass your stool? No (0) Experience a strong sense of urgency and have to berg to the bathroom to have a bowel movement? Yes, somewhat bothersome (2) Does part of your bowel ever pass through the rectum and bulge outside during or after a bowel movement? No (0) Usually experience frequent urination? Yes, moderately bothersome (3) Usually experience urine leakage associated with a feeling of urgency, that is, a strong sensation of needing to go to the bathroom? Yes, moderately bothersome (3) Usually experience urine leakage related to coughing, sneezing or laughing? Yes, somewhat bothersome (2) Usually experience small amounts of urine leakage (that is, drops)? Yes, somewhat bothersome (2) Usually experience difficulty emptying your bladder? Yes, somewhat bothersome (2) Usually experience pain or discomfort in the lower abdomen or genital region? No (0) PAST MEDICAL HISTORY Diagnosis Date Broken ankle fracture Broken foot H/O thyroid nodule Heart murmur Hypertension Hypothyroid Osteopenia 01/15/2013 PAST SURGICAL HISTORY Procedure Laterality Date ADENOIDECTOMY PRIMARY Adenoidectomy HYSTEROSCOPY, DIAGNOSTIC (SEPARATE Hysteroscopy PAST SURGICAL HISTORY OF 02/2013 repair foot/ankle fracture TONSILLECTOMY PRIMARY/SECONDARY Tonsillectomy TOTAL ABDOMINAL HYSTERECT W/WO RMVL TUBE OVARY 2000 Hysterectomy, [facility] FAMILY HISTORY Adopted: Yes Problem Relation Age of Onset other (Other) Other adopted unknown Current Outpatient Medications Medication Sig Dispense Refill hydrocortisone 2.5 % cream APPLY CREAM TO RASH IN EARS ONCE DAILY NEEDED WHEN FLARED atorvastatin (LIPITOR) 40 mg tablet levothyroxine (SYNTHROID) 100 mcg tablet Take 100 mcg by mouth daily before breakfast. lisinopril (ZESTRIL, PRINIVIL) 10 mg tablet Take 30 mg by mouth once daily. aspirin(ASPIR-LOW 81 MG TAB) Take one(1) tablet daily. 0 CALCIUM 600 600 MG TAB Take one(1) tablet twice daily. 0 DAILY MULTIVITAMIN TAB 0 No current (more content not included)... [facility] 06-22-2023 Nurse Note Patient's BP was 177/93, rechecked at end of visit 179/96. Provider notified. Asymptomatic. Patient states she has white coat syndrome. She takes Lisinopril 20mg. Patient advised to schedule BP check within 30 days.. documented in this encounter [facility] 06-22-2023 Instructions Louie Chavez MD - 06/22/2023 10:23 AM EDT Constipation: discussed importance of maintaining a regular consistent bowel regimen that will lead to daily bowel movement. Should aim for 35 g of fiber daily; may supplement with Miralax PRN. Move It Recipe: Mix: - 1 Cup of Prune Juice - 1 Cup of Applesauce - 1 Cup of Bran - 1/2 Cup of Flaxseed Instructions: Take two tablespoons twice a day. This mixture must be refrigerated. Alternative supplements include (use as directed): - Metamucil - Citrucel - Benefiber When starting Miralax - can titrate up until bowel regimen appropriate and comfortable. Can start with half cap for 1-2 weeks, then full cap for 1-2 weeks, and up as needed. Switch to miralax from stool softener* documented in this encounter [facility] 06-22-2023 History of Presen t illness Narrative Female Pelvic Medicine & Reconstructive Surgery Consult CHIEF COMPLAINT: Nura Soni is a 63 year old referred for consultation regarding rectocele. She has had a hysterectomy. HISTORY OF PRESENT ILLNESS: She reports prolapse symptoms for at least a couple years, getting worse. She has noticed a vaginal bulge that she could see and feel. She reports having pelvic pressure symptoms. She does not manually reduce the bulge. She has not tried a pessary. She reports LUKE with coughing, laughing, and sneezing. She reports UUI, which is more bothersome. She does have symptoms of urinary urgency and frequency. She does not feel that she empties her bladder completely. She has not tried overactive bladder medications. Daytime frequency: 8-10 Nocturia: 1-2 Fluid intake: 2 cups of decaf coffee, and 2-4 bottles of water daily. She denies a history of UTIs. Today she denies any dysuria or hematuria. She reports occaisonal constipation. She reports fecal incontinence of loose gas/stool. She does take fiber supplements to help with her constipation. She reports vaginal dryness. She does not use vaginal estrogen. She is sexually active. She denies pain with intercourse. She is adopted and unsure of her family history. 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 Yes, not at all bothersome (1) Usually experience heaviness or dullness in the pelvic area? Yes, not at all bothersome (1) Usually have a bulge or something falling out that you can see or feel in your vaginal area? Yes, somewhat bothersome (2) Ever have to push on the vagina or around the rectum to have or complete a bowel movement? No (0) Usually experience a feeling of incomplete bladder emptying? Yes, moderately bothersome (3) Ever have to push up on a bulge in the vaginal area with your fingers to start or complete urination? No (0) Feel you need to strain too hard to have a bowel movement? Yes, somewhat bothersome (2) Feel you have not completely emptied your bowels at the end of a bowel movement? Yes, somewhat bothersome (2) Usually lose stool beyond your control if your stool is well formed? Yes, somewhat bothersome (2) Usually lose stool beyond your control if your stool is loose? Yes, somewhat bothersome (2) Usually lose gas from the rectum beyond your control? Yes, somewhat bothersome (2) Usually have pain when you pass your stool? No (0) Experience a strong sense of urgency and have to berg to the bathroom to have a bowel movement? Yes, somewhat bothersome (2) Does part of your bowel ever pass through the rectum and bulge outside during or after a bowel movement? No (0) Usually experience frequent urination? Yes, moderately bothersome (3) Usually experience urine leakage associated with a feeling of urgency, that is, a strong sensation of needing to go to the bathroom? Yes, moderately bothersome (3) Usually experience urine leakage related to coughing, sneezing or laughing? Yes, somewhat bothersome (2) Usually experience small amounts of urine leakage (that is, drops)? Yes, somewhat bothersome (2) Usually experience difficulty emptying your bladder? Yes, somewhat bothersome (2) Usually experience pain or discomfort in the lower abdomen or genital region? No (0) PAST MEDICAL HISTORY Diagnosis Date Broken ankle fracture Broken foot H/O thyroid nodule Heart murmur Hypertension Hypothyroid Osteopenia 01/15/2013 PAST SURGICAL HISTORY Procedure Laterality Date ADENOIDECTOMY PRIMARY <AGE 11 Adenoidectomy HYSTEROSCOPY, DIAGNOSTIC (SEPARATE Hysteroscopy PAST SURGICAL HISTORY OF 02/2013 repair foot/ankle fracture TONSILLECTOMY PRIMARY/SECONDARY <AGE 11 Tonsillectomy TOTAL ABDOMINAL HYSTERECT W/WO RMVL TUBE OVARY 2000 Hysterectomy, [facility] FAMILY HISTORY Adopted: Yes Problem Relation Age of Onset other (Other) Other adopted unknown Current Outpatient Medications Medication Sig Dispense Refill hydrocortisone 2.5 % cream APPLY CREAM TO RASH IN EARS ONCE DAILY NEEDED WHEN FLARED atorvastatin (LIPITOR) 40 mg tablet levothyroxine (SYNTHROID) 100 mcg tablet Take 100 mcg by mouth daily before breakfast. lisinopril (ZESTRIL, PRINIVIL) 10 mg tablet Take 30 mg by mouth once daily. aspirin(ASPIR-LOW 81 MG TAB) Take one(1) tablet daily. 0 CALCIUM 600 600 MG TAB Take one(1) tablet twice daily. 0 DAILY MULTIVITAMIN TAB 0 No current facility-administered medications for this visit. ALLERGIES No Known Allergies Social History Tobacco Use Smoking status: Never Smokeless tobacco: Never Vaping Use Vaping Use: Never used Substance Use Topics Alcohol use: Yes Comment: Occasionally Drug use: No REVIEW OF SYSTEMS ENT: negative for findings Respiratory: negative for findings Cardiovascular: negative Gastrointestinal: negative Genitourinary: negative Musculoskeletal: negative Neurologic: negative Psychiatric: negative Endocrine: negative Integumentary: negative for findings I have confirmed and edited as necessary, the PFSH and ROS obtained by others. Louie Chavez MD OBJECTIVE: Physical Exam BP 179/96 Pulse (!) 55 Wt 93 kg (205 lb) BMI 38.73 kg/m General Appearance: Well-appearing, no acute distress Psychiatric: Alert and oriented, normal affect Neck: Deferred Skin: No rashes or lesions Lymph: Deferred C/V: Normal peripheral perfusion Lungs: Respiratory effort normal Abdomen: Soft, non-tender, non-distended Pelvic examination: Vulva/Perineum: Normal development, no lesions, normal hair distribution, normal anus Urethral Meatus:Normal location and size, no lesions Urethra: No masses, tenderness or scarring Bladder:No masses, no tenderness Vagina: not atrophic, rectocele Cervix: s/a Uterus: s/a Adnexae:No masses, tenderness or nodularity Perineal Sensation: Normal Levator tone: decreased Levator tenderness: Absent NEG EBCST POP-Q: Prolapse Noted: Yes Aa = -2.0 Ba = -2.0 C = -6.0 gh = 5.0 pb = 3.0 tvl = 9.0 Ap = +2.0 Bp = +2.0 D = n/a UA results: trace leukocytes US PVR: 0 cc Backfill bladder cough stress test Urethra prepped with betadine. Catheter inserted. PVR 40cc. Sterile water instilled into the bladder. Catheter removed and patient instructed to cough. First sensation: 110cc First urge: 150cc Strong urge/MCFP: 240cc Neg INSTRUCTOR HAIRSPRING with 240 mL sterile water Physical exam chaperoned by Riya Hawley RN. IMPRESSION: Nura Soni is a 63 year old female with: Rectocele, vaginal vault prolapse We discussed the findings of our history and physcial today demonstrating Stage III rectocele. We discussed non-surgical management options, including a pessary and pelvic floor therapy, but she declined these and expressed a desire to proceed with surgery. I reviewed various surgical options and recommend posterior colporrhaphy, perineorrhaphy, possible SSLS, cystoscopy, procedures as indicated. Discussed how her apex is reasonably suspended but sometimes under anesthesia may be more apparent that she requires apical support for her repair. We discussed all of the details and risks associated with each procedure. We discussed the impact of prolapse repair on bladder function and discussed the possibilities of the development of de jessy stress incontinence or post operative voiding dysfunction with a need to temporarily use a catheter. We discussed the risks of surgery, including the risks relevant to her medical conditions. Her primary risks include bleeding, infection, injury to adjacent structures including urethra, ureters, bladder, bowel, rectum, blood vessels, nerves. We spoke about surgery and physical activity limitations after surgery. Consent signed, imaging scheduler to call. 2. Mixed UI, urge component worse Mixed Urinary Incontinence: We reviewed the diagnosis of overactive bladder/Urge urinary incontience and stress incontinence (LUKE) and discussed the symptoms of each diagnosis. We described how her symptoms are consistent with both, and she demonstrated stress incontinence in the office during our exam. Urge Urinary Incontinence: We discussed the signs and symptoms of urge urinary incontinence being associated with and overactivity of the bladder, which decreases the ability of the bladder to store urine consistently. This may be worsened by conditions such as diabetes, obesity, sleep apnea and medications such as diuretics. Given her moderate bother from this condition, we discussed treatment options such as conservative measures of timed voiding, avoidance of bladder irritants, avoiding excessive fluid intake and pelvic floor exercises. We briefly discussed the option of biofeedback with trained physical therapists as well as pharmacologic medication options. For treatment of LUKE, we discussed expectant management versus nonsurgical therapy versus surgery for LUKE. She has elected to undergo a trial of medication with: Anticholinergics and I reviewed the possible side effects of dry eyes, dry mouth, and constipation, as well as the risk of cognitive impairment. She confirmed that she does not have closed angle glaucoma and was advised to discontinue the medication if she is diagnosed with this. Starting vesicare 5mg daily 3. Constipation - Regimen of miralax and metamucil discussed and recommended senior power scheduler to call Louie Chavez MD documented in this encounter [facility] 05-19-2023 Note HNO ID: [id number] Author: Lisa Tsang APRN.ASSET PROTECTION PROFESSIONAL Service: ? Author Type: Nurse Practitioner Type: Progress Notes Filed: 05/19/2023 12:47 PM Note Text: [employer] Counter Person offered: Patient declines. Nura is a 63 year old who presents for an annual gynecologic exam without complaints. Postmenopausal: RONAN 2000 with BSO HRT use: Vivelle -discontinued 2021 History of abnormal pap: No Last mammogram: 2022 normal History of abnormal mammogram: No Sexually active: Yes Patient concerns for STD exposure: No. Time with current partner: long-term Pain with intercourse: No Postcoital bleeding: No Hot flashes: Yes, occasional depends on triggers Night sweats: none Vaginal dryness: Yes, uses lubricant which is helpful Documentation from previous visit of was copied and pasted, documentation has been reviewed and edited as necessary for today's visit. 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 History LMP: Hysterectomy Age at Menarche: Age at First : Age at Menopause: Grinding Machine Operator Automatic History Comments: Sexual Activity: Yes; Male; hysterectomy Contraception: Surgical PAST MEDICAL HISTORY Diagnosis Date Broken ankle fracture Broken foot H/O thyroid nodule Heart murmur Hypertension Hypothyroid Osteopenia 01/15/2013 PAST SURGICAL HISTORY Procedure Laterality Date ADENOIDECTOMY PRIMARY Adenoidectomy HYSTEROSCOPY, DIAGNOSTIC (SEPARATE Hysteroscopy PAST SURGICAL HISTORY OF 02/2013 repair foot/ankle fracture TONSILLECTOMY PRIMARY/SECONDARY Tonsillectomy TOTAL ABDOMINAL HYSTERECT W/WO RMVL TUBE OVARY 2000 Hysterectomy, [facility] FAMILY HISTORY Adopted: Yes Problem Relation Age of Onset other (Other) Other adopted unknown SOCIAL HISTORY Social History Tobacco Use Smoking status: Never Smokeless tobacco: Never Vaping Use Vaping Use: Never used Substance Use Topics Alcohol use: Yes Alcohol/week: 60.0 standard drinks of alcohol Comment: Occasionally Drug use: No REVIEW OF SYSTEMS Abdomen: No abdominal pain, nausea, vomiting, diarrhea, or constipation. No bloating, early satiety, indigestion, or increased flatulence. Bladder: No dysuria, gross hematuria, urinary frequency, urinary urgency, or incontinence Breast: No breast lumps, nipple d/c, overlying skin changes, redness or skin retraction Allergies and current medication updated:Yes EXAM: BP 152/84 Ht 5' 1 (1.55m) Wt 206 lb 9.6 oz (93.7kg) BMI 39.06 kg/(m2). GENERAL: pleasant, female in no apparent distress HEENT: Normocephalic, atraumatic, mucus membranes moist, and no lesions NECK: Supple, full range of motion, no adenopathy, and thyroid normal DERMATOLOGY: Normal, without lesions, non-icteric, and non-hirsute BREAST: soft, non-tender, symmetric, no dominant mass, normal nipple-areolar complex, no lymphadenopathy, and no nipple discharge CHEST: Normal inspiratory effort ABDOMEN: soft, non-tender, and no masses PELVIC: external genitalia normal, normal Bartholin's glands, urethra, [place]'s glands, no vulvar lesions, physiologic discharge present, normal appearing perineal body and perianal region, cervix surgically absent. Rectocele 2nd degree, cystocele 1st degree. Vaginal wall prolapse. BIMANUAL: no adnexal masses, non-tender, and uterus surgically absent RECTOVAGINAL: deferred. NEURO: alert and oriented x3,exam grossly non-focal EXTREMITIES: normal ASSESSMENT/PLAN: 1) Health maintenance: Pap/HPV screening no longer needed Mammogram ordered Mammogram up to date Nutrition, exercise and routine health maintenance exams reviewed. Calcium/Vitamin D supplementation information provided. Colon cancer screening: up to date with screening BMD: up to date 2022 osteopenia LS and Left hip 2. Rectocele - ICD9: 618.04, ICD10: N81.6 2nd degree - States she prevents constipation with diet. Discussed options including monitoring, pessary and consult to urogyn to discuss surgical options. - CONSULT TO URO GYNECOLOGY 3. Cystocele, midline - ICD9: 618.01, ICD10: N81.11 1st degree - CONSULT TO URO GYNECOLOGY 4. Vaginal wall prolapse - ICD9: 618.00, ICD10: N81.10 5) Follow up one year or sooner as needed Lisa Tsang APRN.[facility] 05-06-2023 Note HNO ID: [id number] Author: Kelly Jolley Mammo Tech Service: ? Author Type: Fretted String Instrument Repairer Type: Progress Notes Filed: 05/06/2023 8:07 AM Note Text: Radiology Service Progress Note PATIENT NAME: Nura Soni DATE OF SERVICE: May 06, 2023 TIME: 7:53 AM PATIENT IDENTITY VERIFICATION COMPLETED USING TWO (2) IDENTIFIERS: Name and Date of confirmed by patient verbally. FALL SCREENING: Has the patient had 2 falls in the last year or 1 fall with injury or currently using an Ambulatory Assistive Device (Walker, Cane, Wheelchair, Crutches, etc.)? No PATIENT GENDER DATA: Female. status: : No status: NO. PATIENT RELEVANT IMPLANT DATA REVIEWED: Not Applicable RADIOLOGY DEPARTMENT: Mammography PERIPHERAL IV DATA: Not applicable SIGNED BY: Uday Lovell May 06, 2023 7:53 AM [facility] 05-06-2023 History of Presen t illness Narrative Radiology Service Progress Note PATIENT NAME: Nura Soni DATE OF SERVICE: May 06, 2023 TIME: 7:53 AM PATIENT IDENTITY VERIFICATION COMPLETED USING TWO (2) IDENTIFIERS: Name and Date of confirmed by patient verbally. FALL SCREENING: Has the patient had 2 falls in the last year or 1 fall with injury or currently using an Ambulatory Assistive Device (Walker, Cane, Wheelchair, Crutches, etc.)? No PATIENT GENDER DATA: Female. status: : No status: NO. PATIENT RELEVANT IMPLANT DATA REVIEWED: Not Applicable RADIOLOGY DEPARTMENT: Mammography PERIPHERAL IV DATA: Not applicable SIGNED BY: Uday Lovell May 06, 2023 7:53 AM documented in this encounter [facility] 04-27-2023 Note HNO ID: [id number] Author: Carloz Philip RT(Anayeli) Service: ? Author Type: Technologist Type: Progress Notes Filed: 04/27/2023 10:40 AM Note Text: Radiology Service Progress Note PATIENT NAME: Nura Soni DATE OF SERVICE: April 27, 2023 TIME: 10:30 AM PATIENT IDENTITY VERIFICATION COMPLETED USING TWO (2) IDENTIFIERS: Name and Date of confirmed by patient verbally. FALL SCREENING: Has the patient had 2 falls in the last year or 1 fall with injury or currently using an Ambulatory Assistive Device (Walker, Cane, Wheelchair, Crutches, etc.)? No PATIENT GENDER DATA: Female. status: : No status: NO. PATIENT RELEVANT IMPLANT DATA REVIEWED: Not Applicable RADIOLOGY DEPARTMENT: Bone Density PERIPHERAL IV DATA: Not applicable SIGNED BY: RT Laura(Anayeli) April 27, 2023 10:30 AM [facility] 04-27-2023 History of Presen t illness Narrative Radiology Service Progress Note PATIENT NAME: Nura Soni DATE OF SERVICE: April 27, 2023 TIME: 10:30 AM PATIENT IDENTITY VERIFICATION COMPLETED USING TWO (2) IDENTIFIERS: Name and Date of confirmed by patient verbally. FALL SCREENING: Has the patient had 2 falls in the last year or 1 fall with injury or currently using an Ambulatory Assistive Device (Walker, Cane, Wheelchair, Crutches, etc.)? No PATIENT GENDER DATA: Female. status: : No status: NO. PATIENT RELEVANT IMPLANT DATA REVIEWED: Not Applicable RADIOLOGY DEPARTMENT: Bone Density PERIPHERAL IV DATA: Not applicable SIGNED BY: RT Laura(Anayeli) April 27, 2023 10:30 AM documented in this encounter [facility] 04-06-2022 Instructions Lisa Tsang APRN.ASSET PROTECTION PROFESSIONAL - 04/06/2022 10:01 AM EDT Calcium and Vitamin D Supplementation (from the National Institutes of Health Office of Dietary Supplements 2011) Calcium 1200 mg daily - 600 mg twice a day if taking supplement and Vit D 800-1000 IU daily Calcium is required by the body for blood vessel, muscle, hormone and nerve functioning. Most of the body's calcium is stored in the bones and teeth where it supports structure and function. Bone is continuously broken down and reformed. When bone breakdown exceeds formation, especially in postmenopausal women, bone loss can increase the risk of osteoporosis and fractures. In addition to low calcium intake, women who smoke, have a family history of osteoporosis, are thin, or , or who take certain medications such as cancer chemotherapy, seizure mediations and steroids are at increased risk of osteoporosis. The calcium requirements in women change with age. The National Institutes of Health (NIH) recommends: 1000mg elemental calcium for premenopausal women age 19-50 1200mg elemental calcium for postmenopausal women and all women over 50 Milk, yogurt, and cheese are rich natural sources of calcium and are the major food contributors in the [place]. For example, 8oz of milk (whole, lowfat or skim) contains about 300mg calcium, 8oz of yogurt contains 415mg. Nondairy sources include salmon and sardines and vegetables, such as [place]amese cabbage, kale, and broccoli. Foods fortified with calcium include many fruit juices, tofu and cereals. For more food calcium content information, visit http://ods.od.nih.gov/factsheets /calcium. Calcium supplements come in several different forms. Remember that the recommendations are for millgrams (mg) of elemental calcium which may be less than the total weight of the supplement. The amount of elemental calcium is required to be printed on the label. Calcium carbonate is the least expensive form. It must be taken on a full stomach to be properly absorbed. Some patients may experience gas or constipation. Calcium phosphate and calcium citrate may be taken either with or without food and tend to have less side effects but are generally more expensive. Because of its ability to neutralize stomach acid, calcium carbonate is found in some [id number] antacid products, such as Tums and Rolaids . Depending on its strength, each chewable pill or softchew provides 200 to 400 mg of elemental calcium. The percentage of calcium absorbed depends on the total amount of elemental calcium consumed at one time. Absorption is highest in doses <500mg. So a woman who takes 1,000mg/day of calcium from supplements should split the dose and take 500mg at two separate times during the day. Too much calcium can cause kidney stones, constipation, difficulty absorbing other nutrients and calcium buildup in blood vessels. Women under 50 should not exceed 2500mg/day (2000mg/day for women over 50) of calcium from food and supplements. Excessive alcohol and caffeine intake can inhibit absorption of calcium. Calcium can reduce the absorption of some medications if taken at the same time of day (bisphosphonates, thyroid medication, Phenytoin and other seizure medications, some antibiotics and iron supplements). Vitamin D promotes calcium absorption in the gut and maintains adequate blood levels of calcium and phosphate for normal bone growth and bone remodeling. Vitamin D also helps regulate cell growth as well as nerve, muscle and immune system function. Vitamin D is produced in the skin as a result of ultraviolet sunlight rays and must be altered in the liver and kidney to become its active form. Recommended intake according to the National Institutes of Health is 600 International Units (IU) for girls and women ages 1-70 and 800 IU for women over 70. Very few foods in nature contain vitamin D. The flesh of fatty fish (such as salmon, tuna, and mackerel) and fish liver oils are among the best sources. Small amounts of vitamin D are found in beef liver, cheese, mushrooms and egg yolks. Most people meet at least some of their vitamin D needs through exposure to sunlight. Season, time of day, length of day, cloud cover, smog, skin melanin content, and sunscreen are among the factors that affect UV radiation exposure and vitamin D synthesis. Despite the importance of the sun for vitamin D synthesis, it is prudent to limit exposure of skin to sunlight and avoid tanning beds. UV radiation is a carcinogen responsible for most of the estimated 1.5 million skin cancers that occur annually in the [place]. Lifetime cumulative UV damage to skin is also responsible for some age-associated dryness and other cosmetic changes. In supplements and fortified foods, vitamin D is available in two forms, D2 (ergocalciferol) and D3 (cholecalciferol). The two are equivalent at normal supplement doses. For women who require high supplement doses because of vitamin D deficiency, D3 may work better to raise blood levels. Some medications can prevent proper absorption of Vitamin D. These include laxatives, corticosteroids like prednisone, the seizure drugs phenobarbital and phenytoin, the weight-loss drug orlistat ( Xenical and AlliTM) and the cholesterol-lowering drug cholestyramine (Questran , LoCholest , and Prevalite ). Talk to your doctor about adjusting your recommended daily vitamin D dosage if you take these medications. You should not exceed 4000 mg of vitamin D supplementation daily unless specifically prescribed by your doctor. documented in this encounter [facility] 04-06-2022 History of Presen t illness Narrative [employer] Counter Person offered: Patient declines. Nura is a 62 year old who presents for an annual gynecologic exam without complaints. Retired end of February and is figuring out retired life! retired 3 years ago. 3 grandchildren ages 4,6,8. Postmenopausal: RONAN 2000 with BSO HRT use: Vivelle - tapering dose, using 1/8 of dot History of abnormal pap: No Last mammogram: 2021 normal History of abnormal mammogram: No Sexually active: Yes Patient concerns for STD exposure: No. Time with current partner: long-term Pain with intercourse: No Postcoital bleeding: No Hot flashes: Yes, 1-2 every other day depends on triggers Night sweats: Yes, occasional Vaginal dryness: Yes, uses lubricant which is helpful Documentation from previous visit of 04/03/2021 was copied and pasted, documentation has been reviewed and edited as necessary for today's visit. 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 History LMP: Hysterectomy Age at Menarche: Age at First : Age at Menopause: Grinding Machine Operator Automatic History Comments: Sexual Activity: Yes; Male; hysterectomy Contraception: Surgical PAST MEDICAL HISTORY Diagnosis Date Broken ankle fracture Broken foot H/O thyroid nodule Hypertension Hypothyroid PAST SURGICAL HISTORY Procedure Laterality Date HYSTEROSCOPY, DIAGNOSTIC (SEPARATE Hysteroscopy PAST SURGICAL HISTORY OF 02/2013 repair foot/ankle fracture REMOVAL ADENOIDS,PRIMARY,<12 Y/O Adenoidectomy REMOVAL OF TONSILS,<11 Y/O Tonsillectomy TOTAL ABDOM HYSTERECTOMY 2001 Hysterectomy, [facility] FAMILY HISTORY Adopted: Yes Problem Relation Age of Onset other (Other) Other adopted unknown SOCIAL HISTORY Social History Tobacco Use Smoking status: Never Smokeless tobacco: Never Vaping Use Vaping Use: Never used Substance Use Topics Alcohol use: Yes Alcohol/week: 60.0 standard drinks Comment: Occasionally Drug use: No REVIEW OF SYSTEMS Abdomen: No abdominal pain, nausea, vomiting, diarrhea, or constipation. No bloating, early satiety, indigestion, or increased flatulence. Bladder: No dysuria, gross hematuria, urinary frequency, urinary urgency, or incontinence Breast: No breast lumps, nipple d/c, overlying skin changes, redness or skin retraction Allergies and current medication updated:Yes EXAM: BP 162/98 Ht 5' 1 (1.55m) Wt 214 lb (97.1kg) BMI 40.46 kg/(m^2). Normal at PCP office, taking antihypertensives. GENERAL: pleasant, female in no apparent distress HEENT: Normocephalic, atraumatic, mucus membranes moist, and no lesions NECK: Supple, full range of motion, no adenopathy, and thyroid normal DERMATOLOGY: Normal, without lesions, non-icteric, and non-hirsute BREAST: soft, non-tender, symmetric, no dominant mass, normal nipple-areolar complex, no lymphadenopathy, and no nipple discharge CHEST: Normal inspiratory effort ABDOMEN: soft, non-tender, and no masses PELVIC: external genitalia normal, normal Bartholin's glands, urethra, [place]'s glands, no vulvar lesions, physiologic discharge present, normal appearing perineal body and perianal region, cervix surgically absent, rectocele 1st degree BIMANUAL: no adnexal masses, non-tender, and uterus surgically absent RECTOVAGINAL: deferred. NEURO: alert and oriented x3,exam grossly non-focal EXTREMITIES: normal ASSESSMENT/PLAN: 1) Health maintenance: Pap/HPV screening no longer needed Mammogram ordered Mammogram up to date Nutrition, exercise and routine health maintenance exams reviewed. Calcium/Vitamin D supplementation information provided. Colon cancer screening: up to date with screening Rectocele - 1st degree. Asymptomatic. Discussed need to avoid constipation. HRT - Pt to completely discontinue Vivelle Dot. BMD ordered. 2014 Osteopenia 2) Follow up one year or sooner as needed Lisa Tsang APRN.KD documented in this encounter [facility] 04-02-2022 Miscellaneous Notes April 02, 2022 PID: [id number] Nura Soni [address] [place] [address] Dear Ms. Soni, We are pleased to inform you that the results of your recent breast imaging exam on 04/02/2022 are normal. Early detection of cancer is very important. We also understand recommendations regarding breast cancer screening are controversial. Please discuss with your primary care provider which strategy is best for you and whether a mammogram is right for you. Your imaging studies and report will be kept on file at [facility] as part of your permanent medical record and are available for your continuing care. Thank you for allowing us to help in meeting your health care needs. Sincerely, Dr. Mccormick Interpreting Radiologist [facility] (Normal over 40) documented in this encounter [facility] 01-21-2022 Miscellaneous Notes Patient still weaning down and does not need a refill. Mary Loo RN] Left message to call office. Please ask patient if she is still taking this medication. Mary Loo RN Refill request received from pharmacy. Patient last seen for annual exam on 04/03/21. Mary Loo RN documented in this encounter [facility] Encounter for gynecological examination (general) (routine) without abnormal findings Encounter for screening mammogram for breast cancer [facility] Encounter for gynecological examination with abnormal finding- Primary Routine gynecological examination Encounter for screening mammogram for breast cancer Rectocele Asymptomatic postmenopausal state Encounter for screening for osteoporosis Special screening for osteoporosis documented in this encounter [facility] note* Diagnosis 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 Mixed incontinence urge and stress (male)(female) Rectocele Cystocele, midline Vaginal vault prolapse Unspecified prolapse of vaginal castaneda Constipation, unspecified constipation type documented in this encounter [facility] note* Diagnosis Encounter for gynecological examination with abnormal finding Routine gynecological examination Encounter for screening mammogram for breast cancer documented in this encounter [facility] note* Diagnosis Asymptomatic postmenopausal state Encounter for screening for osteoporosis Special screening for osteoporosis documented in this encounter [facility] note* Diagnosis Rectocele [N81.6]- Primary Rectocele Preop examination Preoperative examination, unspecified Elevated blood pressure reading without diagnosis of hypertension Obesity, Class II, BMI 35-39.9 Obesity, unspecified Rectocele Vaginal vault prolapse Unspecified prolapse of vaginal castaneda documented in this encounter [facility] note* Diagnosis Educational circumstance- Primary Rectocele Vaginal vault prolapse Unspecified prolapse of vaginal castaneda documented in this encounter [facility] for referral (narrative)* Diagnostic Procedure Only (Routine) - Closed Specialty Diagnoses / Procedures Referred By Artemio quinonez Referred To Contact [facility] Diagnoses Encounter for gynecological examination (general) (routine) without abnormal findings Encounter for screening mammogram for breast cancer Procedures [facility] SCREENING SCREENING MAMMOGRAPHY BI 2-VIEW BREAST INC Lisa Jiang APRN.CNP [address] [place] [address] [facility] [address] [place] [phone] Referral ID Status Reason Start Date Expiration Date V isits Requested Visits Authorized [id number] Closed Auto-Generate d Referral 04/03/2021 05/03/2022 1 1 [facility] Diagnostic Procedure Only (Routine) - Pending Review Specialty Diagnoses / Procedures Referred By Artemio quinonez Referred To Contact [facility] Diagnoses Encounter for gynecological examination with abnormal finding Encounter for screening mammogram for breast cancer Procedures [facility] SCREENING SCREENING MAMMOGRAPHY BI 2-VIEW BREAST INC CAD Lisa Tsang APRN.ASSET PROTECTION PROFESSIONAL [address] [place] [address] [facility] [address] [place] [address] Referral ID Status Reason Start Date Expiration Date Visits Requested Visits Authorized [id number] Pending Review Auto-Generat ed Referral 04/06/2022 05/06/2023 1 1 [facility] for referral (narrative)* Diagnostic Procedure Only (Routine) - Closed Specialty Diagnoses / Procedures Referred By Artemio quinonez Referred To Contact [facility] Diagnoses Encounter for gynecological examination with abnormal finding Encounter for screening mammogram for breast cancer Procedures [facility] SCREENING SCREENING MAMMOGRAPHY BI 2-VIEW BREAST INC CAD Lisa Tsang APRN.ASSET PROTECTION PROFESSIONAL [address] [place] [address] [facility] [address] [place] [address] Referral ID Status Reason Start Date Expiration Date V isits Requested Visits Authorized [id number] Closed Auto-Generate d Referral 04/06/2022 05/06/2023 1 1 [facility] for visit Narrative* Diagnostic Procedure Only (Routine) - Closed Specialty Diagnoses / Procedures Referred By Artemio quinonez Referred To Contact [facility] Diagnoses Encounter for gynecological examination (general) (routine) without abnormal findings Encounter for screening mammogram for breast cancer Procedures [facility] SCREENING SCREENING MAMMOGRAPHY BI 2-VIEW BREAST INC Lisa Jiang APRN.ASSET PROTECTION PROFESSIONAL [address] [place] [address] [facility] [address] [place] [address] Referral ID Status Reason Start Date Expiration Date V isits Requested Visits Authorized [id number] Closed Auto-Generate d Referral 04/03/2021 05/03/2022 1 1 [facility] for visit Narrative* Diagnostic Procedure Only (Routine) - Closed Specialty Diagnoses / Procedures Referred By Contac t Referred To Contact [facility] Diagnoses Encounter for gynecological examination with abnormal finding Encounter for screening mammogram for breast cancer Procedures [facility] SCREENING SCREENING MAMMOGRAPHY BI 2-VIEW BREAST INC Lisa Jiang, BONE CHAR KILN OPERATOR.ASSET PROTECTION PROFESSIONAL [address] [place] [address] [facility] [address] [place] [address] Referral ID Status Reason Start Date Expiration Date V isits Requested Visits Authorized [id number] Closed Auto-Generate d Referral 04/06/2022 05/06/[address] [facility] Summary Purpose Family History No Family History Records FoundNo Family History Records FoundNo Family History Records Found Advance Directives No Advanced Directives Records FoundNo Advanced Directives Records FoundNo Advanced Directives Records Found Reason for Referral Specialty Diagnoses / Procedures Referred By Contac t Referred To Contact Diagnoses Rectocele Cystocele, midline Vaginal vault prolapse Procedures REFER TO PACC - PRE ANESTHESIA CONSULTATION CLINIC OFFICE/OUTPATIENT [facility] 60-74 MINUTES Louie Chavez MD [address] [address] Referral ID Status Reason Start Date Expiration Date Visits Requested Visits Authorized [id number] Authorized PCP Requested Referral 3 06/21/2024 1 1 Additional Source Comments INFORMATION SOURCE (unrecogn ized section and content) DATE CREATED AUTHOR AUTHOR'S ORGANIZ ATION 09/17/2023 [facility] DATE CREATED AUTHOR AUTHOR'S ORGANIZ ATION 09/25/2023 [facility] Source Comments (unrecognize d section and content) In the event this informatio n is protected by the Federal Confidentiality of Alcohol and Drug Abuse Patient Records regulations: The Federal rules restrict any use of the information to criminally investigate or prosecute any alcohol or drug abuse patient.[facility] the event this information is protected by the Federal Confidentiality of Alcohol and Drug Abuse Patient Records regulations: The Federal rules restrict any use of the information to criminally investigate or prosecute any alcohol or drug abuse patient.[facility] the event this information is protected by the Federal Confidentiality of Alcohol and Drug Abuse Patient Records regulations: The Federal rules restrict any use of the information to criminally investigate or prosecute any alcohol or drug abuse patient.[facility] the event this information is protected by the Federal Confidentiality of Alcohol and Drug Abuse Patient Records regulations: The Federal rules restrict any use of the information to criminally investigate or prosecute any alcohol or drug abuse patient.[facility] the event this information is protected by the Federal Confidentiality of Alcohol and Drug Abuse Patient Records regulations: The Federal rules restrict any use of the information to criminally investigate or prosecute any alcohol or drug abuse patient.[facility] the event this information is protected by the Federal Confidentiality of Alcohol and Drug Abuse Patient Records regulations: The Federal rules restrict any use of the information to criminally investigate or prosecute any alcohol or drug abuse patient.[facility] the event this information is protected by the Federal Confidentiality of Alcohol and Drug Abuse Patient Records regulations: The Federal rules restrict any use of the information to criminally investigate or prosecute any alcohol or drug abuse patient.[facility] the event this information is protected by the Federal Confidentiality of Alcohol and Drug Abuse Patient Records regulations: The Federal rules restrict any use of the information to criminally investigate or prosecute any alcohol or drug abuse patient.[facility] the event this information is protected by the Federal Confidentiality of Alcohol and Drug Abuse Patient Records regulations: The Federal rules restrict any use of the information to criminally investigate or prosecute any alcohol or drug abuse patient.[facility] Reason for Visit (unrecogniz ed section and content) Reason Comments [facility] Specialty Diagnoses / Procedures Referred By Artemio quinonez Referred To Contact Diagnoses Rectocele Cystocele, midline Procedures CONSULT TO URO GYNECOLOGY OFFICE/OUTPATIENT [facility] 60-74 MINUTES Lisa Tsang, BONE CHAR KILN OPERATOR.ASSET PROTECTION PROFESSIONAL [address] [place] [address] Referral ID Status Reason Start Date Expiration Date V isits Requested Visits Authorized [id number] Closed PCP Requested Referral Auto-Generated Referral 05/19/2023 05/18/2024 1 1 Reason Comments Pre-Op Teaching Care Teams (unrecognized sec tion and content) Boiler Helper Relationship Specialty Start Date End Date Brian Owens MD [address] [place] [address] PCP - General 04/22/04 Boiler Helper Relationship Specialty Start Date End Date Brian Owens MD [address] [place] [address] PCP - General 04/22/04 Boiler Helper Relationship Specialty Start Date End Date Brian Owens MD [address] [place] [address] [place] [address] PCP - General 04/22/04 Boiler Helper Relationship Specialty Start Date End Date [facility] [place] PCP - General 05/19/23 Boiler Helper Relationship Specialty Start Date End Date Brian Owens MD [address] [place] [address] PCP - General 04/22/04 05/18/23 Boiler Helper Relationship Specialty Start Date End Date Brian Owens MD [address] [place] [address] PCP - General 04/22/04 05/18/23 Boiler Helper Relationship Specialty Start Date End Date [facility], [address] [place], [place] PCP - General 05/19/23 Boiler Helper Relationship Specialty Start Date End Date [facility], [place], [place] PCP - General 05/19/23 FOR RECORDS PERTAINING TO PATIENTS WHO ARE OR HAVE BEEN ENROLLED IN A CHEMICAL DEPENDENCY/SUBSTANCEABUSE PROGRAM, SOME INFORMATION MAY BE OMITTED. This clinical summary was aggregated from multiple sources. Caution should be exercised in using it in the provision of clinical care. This summary normalizes information from multiple sources, and as a consequence, information in this document may materially change the coding, format and clinical context of patient data. In addition, data may be omitted in some cases. CLINICAL DECISIONS SHOULD BE BASED ON THE PRIMARY CLINICAL RECORDS. [facility], [facility]. provides no warranty or guarantee of the accuracy or completeness of information in this document.
[2023-09-26 10:50] LABS: Hemoglobin A1c 5.7 % (3.8-5.6)
[2023-09-26 11:32] LABS: Anion Gap 5 (5-15); BUN 19 mg/dL (7-18); BUN/Creat Ratio 21.2 RATIO (10-20); Calcium,Total 9.5 mg/dL (8.5-10.1); Chloride 103 mmol/L (98-107); Cholesterol 193 mg/dL (200); EST Glomerular Filtration Rate 67 mL/min (>60); Est Glom Filt Rate - Afr Amer 81 mL/min (>60); Glucose 125 mg/dL (74-106); High Density Lipoprotein 96 mg/dL; Potassium 4.6 mmol/L (3.5-5.1); Sodium Level 132 mmol/L (136-145); Triglycerides 57 mg/dL; Very Low Density Lipoprotein 11 mg/dL (5-40)
[2023-09-26 14:16] LABS: Microalbumin,Random Urine 7.7 mg/L (NO RANGE EST.); Microalbumin:Creatinine Ratio 20.6 mg/g CRE (<30 mg/g CRE)
== END | disposition home or self-care (01) ==
LOC: MFPLAB 09:48
PROVIDERS: PCP Family Medicine; Visit Provider Family Medicine
DX: I10 Essential (primary) hypertension (principal); E78.5 Hyperlipidemia, unspecified; R73.01 Impaired fasting glucose
CPT/HCPCS: 36415; 80048; 80061; 82043; 82570; 83036

== ENCOUNTER → 2023-10-26 | Outpatient (CLI) | payer OTHER, SELFPAY ==
--- NOTE | 2023-10-26 11:41 | ECHOCS_ITS ---
Reason For Study: PAF Procedure This was a 2D Doppler, Color Flow transthoracic echocardiogram. The study was technically difficult. Contrast injection was performed. Exam performed in department. Left Ventricle Normal size and thickness. The left ventricular ejection fraction is 65 %. Normal diastology for age. Right Ventricle Normal right ventricle. Atria The left atrium is mildly enlarged. Normal right atrium. Mitral Valve Trivial mitral valve insufficiency. Tricuspid Valve Trivial tricuspid valve insufficiency. Unable to estimate RV systolic pressure due to insufficient tricuspid regurgitant envelope. Aortic Valve Trisinus/trileaflet aortic valve. Pulmonic Valve The pulmonic valve is not well visualized. Great Vessels Normal sized aortic root. Pericardium/Pleural No pericardial effusion. Medication 20 gauge I.V. with prn adaptor inserted into right arm. Diluted definity 1ml given slow IV push to enhance endocardial definition. MMode/2D Measurements & Calculations LVIDd: 4.6 cm IVSd: 1.1 cm Ao root diam: 3.3 cm LVIDs: 3.0 cm LVPWd: 0.98 cm LA dimension: 3.9 cm RVDd: 3.0 cm FS: 34.8 % LAV(MOD-bp): 60.1 ml LVAd ap4: 26.9 cm2 LVAd ap2: 29.4 cm2 LAV(MOD-bp) Indexed: 31.9 ml/m2 LVLd ap4: 7.0 cm LVLd ap2: 7.1 cm LAV(MOD-sp2): 60.9 ml EDV(MOD-sp4): 84.8 ml EDV(MOD-sp2): 99.1 ml LAV(MOD-sp4): 55.0 ml EDV(sp4-el): 87.4 ml EDV(sp2-el): 103.3 ml LVAs ap4: 13.8 cm2 LVAs ap2: 13.0 cm2 LVLs ap4: 5.1 cm LVLs ap2: 5.5 cm ESV(MOD-sp4): 29.9 ml ESV(MOD-sp2): 26.2 ml ESV(sp4-el): 31.5 ml ESV(sp2-el): 25.9 ml EF(MOD-sp4): 64.7 % EF(MOD-sp2): 73.5 % EF(sp4-el): 64.0 % SV(MOD-sp4): 54.9 ml SV(MOD-sp2): 72.8 ml SV(sp4-el): 55.9 ml LA A4 area: 19.9 cm2 RA A4 area: 14.7 cm2 TAPSE: 2.8 cm Time Measurements MV dec time: 0.18 sec Doppler Measurements & Calculations MV E max gigi: 90.5 cm/sec Lat Peak E' Gigi: 13.4 cm/sec Med Peak E' Gigi: 8.5 cm/sec MV A max gigi: 93.0 cm/sec E/E' lat: 6.8 E/E' med: 10.6 MV E/A: 0.97 MV V2 max: 114.3 cm/sec MV P1/2t max gigi: 111.2 cm/sec Ao V2 max: 209.7 cm/sec MV max P.2 mmHg MV P1/2t: 70.2 msec Ao max P.6 mmHg MV V2 mean: 59.8 cm/sec Ao V2 mean: 139.8 cm/sec MV mean P.7 mmHg MV dec slope: 463.7 cm/sec2 Ao mean P.0 mmHg MV V2 VTI: 35.4 cm MVA(P1/2t): 3.1 cm2 Ao V2 VTI: 42.5 cm LV V1 max: 166.8 cm/sec PA V2 max: 97.7 cm/sec LV V1 max P.1 mmHg PA V2 mean: 70.7 cm/sec ECHO/Echo Complete W/ Contrast Interpretation Summary The left ventricular ejection fraction is 65 %. The left atrium is mildly enlarged. The study was technically difficult. Ordering Physician: Filiberto Razo Referring Physician: Filiberto Razo Performed By: Pranay Cash [facility]
--- OUTSIDE RECORDS SUMMARY | 2023-10-26 21:36 | XMS RPT_ITS | CCD ---
Author Name Unknown Address [address] [place] [address] Organization [facility] Care Team Providers Care Education And Training Manager Name Role Phone PETE VIZCARRA Attending Unavailable PETE VIZCARRA Primary Care Unavailable PETE VIZCARRA Admitting Unavailable Brian Owens MD Primary Care Provider Brian Owens MD Primary Care Provider [phone] Physicians, [facility] Care Provide r Brian Owens MD Primary Care Provider [phone] KATHY, LOUIE Referring Unavailable KATHY, LOUIE Attending Unavailable KATHY, LOUIE Admitting Unavailable DAVIDCOLEEN RUELAS Primary Care Unavailable EDMUND, INDIRESHA R Attending Unavailable KATHY, LOUIE Referring Unavailable KATHY, LOUIE Referring Unavailable KATHY, LOUIE Attending Unavailable TSANG, LISA Referring Unavailable BRIAN OWENS Primary Care Unavailable TSANG, LISA Attending Unavailable BRIAN OWENS Primary Care Unavailable TSANG, LSIA Referring Unavailable OWENSBRIAN Primary Care Unavailable TSANG, LISA Referring Unavailable KATHY, LOUIE Attending Unavailable COLEEN GONZALEZ Primary Care Unavailable COLEEN GONZALEZ Primary Care Unavailable EDMUND, INDIRESHA R Referring Unavailable KATHY, LOUIE Attending Unavailable COLEEN GONZALEZ Primary Care Unavailable Coleen Gonzalez DO Primary Care Provider [phone] Medications Completed/Discontinued Medications Medication Drug Class(es) Dates Sig (Normalized) Sig (Original) aspirin 81 mg delayed release oral tablet (11 sources) Platelet Aggregation Inhibitor, Nonsteroidal Anti-inflammatory Drug Start: 12-09-2009 aspirin(ASPIR-LOW 81 MG TAB) Take one(1) tablet daily. 0 12/09/2009 Active Problems Active Problems Problem Classification Problem Date Documented Da te Episodic/Chronic Administrative/social admission (1 source) Education and/or schooling finding; Translations: [Problems related to education and literacy, unspecified] 07-19-2023 Episodic Cardiac dysrhythmias (4 sources) Paroxysmal atrial fibrillation; Translations: [Paroxysmal atrial fibrillation] Onset: 08-19-2023 08-19-2023 Chronic Disorders of lipid metabolism (11 sources) Pure hypercholesterolemia ; Translations: [Pure hypercholesterolemia , unspecified] Onset: 07-20-2017 03-02-2018 Chronic Essential hypertension (3 sources) Essential (primary) hypertension; Translations: [Essential hypertension] Onset: 08-19-2023 08-19-2023 Chronic Genitourinary symptoms and ill-defined conditions (1 source) Mixed urinary incontinence; Translations: [Mixed incontinence] 06-22-2023 Chronic Menopausal disorders (3 sources) Postmenopausal state; Translations: [Hormone replacement therapy] Episodic Other congenital anomalies (11 sources) Congenital pes cavus; Translations: [Congenital pes cavus, unspecified foot] Onset: 10-27-2017 10-27-2017 Chronic Other female genital disorders (1 source) Superficial pain on intercourse; Translations: [Superficial (introital) dyspareunia] 10-20-2023 Chronic Other gastrointestinal disorders (1 source) Constipation; Translations: [Constipation, unspecified] 06-22-2023 Episodic Other nervous system disorders (1 source) Other acute postprocedural pain; Translations: [Post-operative pain] Onset: 07-25-2023 Episodic Other nutritional; endocrine; and metabolic disorders (6 sources) Obese class II; Translations: [Obesity, unspecified] Onset: 06-22-2023 06-22-2023 Chronic Other nutritional; endocrine; and metabolic disorders (1 source) Obesity, unspecified; Translations: [Obesity, Class II, BMI 35-39.9] Onset: 06-22-2023 Chronic Prolapse of female genital organs (20 sources) Disorder of rectum; Translations: [Rectocele] Onset: 05-19-2023 Chronic Residual codes; unclassified (1 source) Postoperative state; Translations: [Other specified postprocedural states] 10-20-2023 Episodic Thyroid disorders (20 sources) Hypothyroidism; Translations: [Hypothyroidism, unspecified] Onset: 01-22-2015 01-22-2015 Chronic Past or Other Problems Problem Classification Problem Date Documented Da te Episodic/Chronic Other bone disease and musculoskeletal deformities (11 sources) Osteopenia; Translations: [Other specified disorders of bone density and structure, unspecified site] Onset: 01-15-2013 01-15-2013 Episodic Other circulatory disease (11 sources) Labile hypertension due to being in a clinical environment; Translations: [Elevated blood-pressure reading, without diagnosis of hypertension] Onset: 01-29-2016 01-29-2016 Episodic Other circulatory disease (12 sources) Elevated blood-pressure reading without diagnosis of hypertension; Translations: [Elevated blood-pressure reading, without diagnosis of hypertension] Onset: 07-20-2017 03-02-2018 Episodic Other circulatory disease (1 source) Elevated blood-pressure reading, without diagnosis of hypertension; Translations: [Elevated blood pressure reading without diagnosis of hypertension] Onset: 03-02-2018 Episodic Other connective tissue disease (11 sources) Metatarsalgia of right foot; Translations: [Metatarsalgia, [...] 10:59-0500 Body height 154.9 cm Pst 1 [facility] 07-15-2023 10:59-0500 Body temperature 98.1 [degF] Pst 1 [facility] 07-15-2023 10:59-0500 Body weight 90.72 kg Pst 1 [facility] 07-15-2023 10:59-0500 Diastolic blood pressure 106 mm[Hg] Pst 1 [facility] 07-15-2023 10:59-0500 Heart rate 66 /min Pst 1 [facility] 07-15-2023 10:59-0500 Respiratory rate 16 /min Pst 1 [facility] 07-15-2023 10:59-0500 SaO2% (BldA) [Mass fraction] 100 % Pst 1 [facility] 07-15-2023 10:59-0500 Systolic blood pressure 193 mm[Hg] Pst 1 [facility] 06-22-2023 10:43-0400 Diastolic blood pressure 96 mm[Hg] Louie Chavez MD Work Phone: [facility] 06-22-2023 10:43-0400 Heart rate 55 /min Louie Chavez MD Work Phone: [facility] 06-22-2023 10:43-0400 Systolic blood pressure 179 mm[Hg] Louie Chavez MD Work Phone: [facility] 06-22-2023 09:45-0400 Body weight 92.99 kg Louie Chavez MD Work Phone: [facility] 04-06-2022 09:34-0400 Body height 154.9 cm Lisa Tsang APRN.TURNER OFF Work Phone: [facility] 04-06-2022 09:34-0400 Body weight 97.07 kg Lisa Tsang APRN.TURNER OFF Work Phone: [facility] 04-06-2022 09:34-0400 Diastolic blood pressure 98 mm[Hg] Lisa Tsang APRN.TURNER OFF Work Phone: [facility] 04-06-2022 09:34-0400 Systolic blood pressure 162 mm[Hg] Lisa Tsang APRN.TURNER OFF Work Phone: [facility] Encounters Encounter Date Encounter Type Care Provider Facility Start: 10-20-2023 End: 10-20-2023 Patient encounter procedure Isidratari Chacon APRN.TURNER OFF Work Phone (unformatted): [phone] [employer]ACK TRAIN [employer]IVER [facility] Procedures Date Procedure Procedure Detail Performing Clinician Start: 06-22-2023 Urnls dip stick/tabl et rgnt auto w/o microscopy Louie Chavez MD Work Phone: Start: 05-06-2023 Screening mammograph y bi 2-view breast inc cad Lisa Tsang APRN.TURNER OFF Work Phone: Start: 04-27-2023 Dxa bone density catherine dy 1/> sites axial skel Lisa Tsnag APRN.KD Work Phone: Start: 04-02-2022 End: 04-02-2022 Screening mammography bi 2-view breast inc cad Lisa Tsang APRN.KD Work Phone: Start: 03-31-2021 Mammography Lisa acuna APRN.TURNER OFF Work Phone: Start: 01-22-2015 Colonoscopy Lisa acuna APRN.TURNER OFF Work Phone: Start: 12-28-2011 Lipid 1996 panel - S luz marina or Plasma Louie Chavez MD Work Phone: Plan of Treatment Date Care Activity Detail Author Start: 08-26-2026 Diabetes Screening Diabetes Screenin g [facility] Start: 05-06-2024 Mammography Mammogram Screening [facility] Start: 05-06-2024 Screening for malign ant neoplasm of breast Mammogram Screening [facility] Start: 08-29-2023 Depression Assessment Depression Ass essment [facility] Start: 06-22-2023 End: 09-21-2023 CBC panel - Blood by Automated count CBC Lab Routine Rectocele Cystocele, midline Vaginal vault prolapse Expected: 06/22/2023, Expires: 09/21/[address] [facility] Work Phone: Payers Date Payer Category Payer Unknown [id number] 2019 Unknown MMO MMO [employer] [id number] 2019-Present [phone] [address] [place] [address] PPO [id number] 2019 Unknown [id number] 1959 Unknown [id number] Social History Date Type Detail Facility Start: 04-06-2022 Tobacco smoking stat us [facility] Never smoked tobacco [facility] Start: 04-03-2021 End: 10-20-2023 Alcohol intake Current drinker of alcohol (finding) [facility] Start: 04-03-2021 End: 05-19-2023 Alcohol intake [facility] Work Phone: Start: 03-26-2020 History SDOH Financial 5 [facility] Start: 03-26-2020 History SDOH Food Worry 1 [facility] Start: 03-26-2020 History SDOH Transpo rt Med 2 [facility] Start: 1960 Sex Assigned At Female [facility] Work Phone: Start: 04-06-2022 Tobacco use and exposure Smokeless tobacco non-user [facility] Work Phone: Start: 05-19-2023 End: 06-22-2023 Tobacco use panel [facility] Work Phone: How hard is it for y ou to pay for the very basics like food, housing, medical care, and heating Not hard at all [facility] Work Phone: (I/We) worried wheth er (my/our) food would run out before (I/we) got money to buy more. Never true [facility] Work Phone: Start: 02-28-2017 Gender identity Identifies as female gender (finding) [facility] Work Phone: Start: 02-28-2017 Sexual orientation Heterosexual (christiano castañeda) [facility] Work Phone: Clinical Notes 01-21-2022 to 10-20-2023 Isidra Chacon APRN.TURNER OFF - 10/20/2023 9:00 AM ESTTelephone Encounter - Saulo- Leeroy Deutsch LPN - 10/14/2023 2:40 PM Riya Argueta - 07/19/2023 10:00 AM ESTPatient Instructions Note Date & Type Note Facility 10-20-2023 History of Presen t illness Narrative Female Pelvic Medicine & Reconstructive Surgery Post-Op Visit Laquita Dobson is a 63 year old female who presents for a 12 week post-op check s/p Sacrospinous ligament suspension, Posterior colporrhaphy, Perineorrhaphy, Enterocele repair, Cystoscopy. Post-op complications: no Bleeding: no Pain: no If you had pain related to your prolapse before surgery, has your pain resolved? Not Applicable Abnormal vaginal discharge: no Pathology: NA History: Patient is happy with the surgery. She stopped the vesicare because she felt funny . States since surgery, her urinary urgency, frequency has resolved. Does still have rare urge incontinence if she waits too long. Overall, is happy with urinary symptoms. Had slight pain with sexual intercourse, describes as superficial on back wall. This is improving. Uses OTC vaginal lubricant. PFDI-20 Do you: Usually experience pressure in the lower abdomen? No (0) Usually experience heaviness or dullness in the pelvic area? No (0) Usually have a bulge or something falling [...] your control if your stool is loose? No (0) Usually lose gas from the rectum beyond your control? No (0) Usually have pain when you pass your stool? No (0) Experience a strong sense of urgency and have to berg to the bathroom to have a bowel movement? No (0) Does part of your bowel ever pass through the rectum and bulge outside during or after a bowel movement? No (0) Usually experience frequent urination? No (0) Usually experience urine leakage associated with a feeling of urgency, that is, a strong sensation of needing to go to the bathroom? No (0) Usually experience urine leakage related to coughing, sneezing or laughing? No (0) Usually experience small amounts of urine leakage (that is, drops)? No (0) Usually experience difficulty emptying your bladder? No (0) Usually experience pain or discomfort in the lower abdomen or genital region? No (0) Overall, how satisfied were you with your postoperative pain medication? Very satisfied With regard to your expectations before surgery, did you have the amount of pain you expected, more pain, or less pain? Less pain than I expected Was the preoperative teaching you had about pain expectations helpful? Yes Were the discharge instructions you received about pain medications helpful? Yes Playground Official offered:Patient declines OBJECTIVE: There were no vitals taken for this visit. General: Well appearing, alert, in no acute distress, well-hydrated, well nourished. Abdomen: Abdomen soft, non-tender Pelvic: Ext. Genitalia, No lesions or other abnormalities Vagina: Good vaginal support, Epithelium atrophic , Surgical incisions are well healed, and Suture material present on posterior wall. Patient states this is where pain with sex is. No evidence of infection- no erythema, granulation tissue. Tissue well approximated. Cervix: Absent Urethra: Normal Bimanual: No tenderness, No masses Rectovaginal: Deferred ASSESMENT: Laquita Dobson is a 63 year old female who is post-op; stable and doing well post-operative course uncomplicated PLAN: - Continue vaginal lubricant, if dyspareunia does not resolve, can consider vaginal estrogen cream - Follow up as needed Isidra Chacon APRN.KD documented in this encounter [facility] 10-14-2023 Miscellaneous Notes Pt called in reports due to her insurance update her prescriptions no have to be sent to [facility]. Patient's request for medication is as follows: Requested Prescriptions Pending Prescriptions Disp Refills dilTIAZem CD (CARTIA XT) 120 mg 24 hr capsule 90 capsule 2 Sig: Take 1 capsule by mouth once daily. triamterene-hydroCHLOROthiazide (DYAZIDE) 37.5-25 mg per capsule 90 capsule 2 Sig: Take 1 capsule by mouth once daily. Last seen 08/19/2023. Next visit 03/02/2024 Prescription(s) as above. Please process accordingly. Leeroy Bullock LPN documented in this encounter [facility] 09-23-2023 Note HNO ID: [id number] Author: LOUIE CHAVEZ MD Service: ? Author Type: Physician Type: Progress Notes Filed: 09/23/2023 15:21 Note Text: Video visit follow up Laquita Dobson is a 63 year old female who [...] visit GEN: NAD Resp: effort normal A/P: Laquita is a 63yo with OAB Possible symptoms improved s/p SSLS/MO, cysto Plan to trial being off vesicare. If symptoms don't return - can stay off. If symptoms return, can reorder the medication Cystocele, VVP S/p procedure as above Has one more follow up next month, she will keep her appt Recommend at least yearly to every 2 year exams to follow Laquita in agreement with the plan Louie Chavez MD [facility] 08-24-2023 Note HNO ID: [id number] Author: Louie Chavez MD Service: ? Author Type: Physician Type: Progress Notes Filed: 08/24/2023 12:36 PM Note Text: Female Pelvic Medicine AND Reconstructive Surgery Post-Op Visit Laquita Dobson is a 63 year old female who [...] you received about pain medications helpful? Yes Playground Official offered:Patient declines OBJECTIVE: There were no vitals taken for this visit. General: Well appearing, alert, in no acute distress, well-hydrated, well nourished. Abdomen: Abdomen soft, non-tender Pelvic: Ext. Genitalia, No lesions or other abnormalities, Perineal incision healing well Vagina: Good vaginal support and Suture material present Cervix: Absent Urethra: Normal Bimanual: No tenderness Rectovaginal: Deferred ASSESMENT: Laquita Dobson is a 63 year old female who is post-op; stable and doing well post-operative course uncomplicated PLAN: May resume normal activities. May resume intercourse in 2-4 weeks. Follow up for 3mo postop check. Louie Chavez MD [facility] 08-19-2023 Note HNO ID: [id number] Author: Dayanara Rodgers MD Service: ? Author Type: Physician Type: Progress Notes Filed: 08/19/2023 10:47 AM Note Text: [facility] SECTION OF CARDIAC PACING and ELECTROPHYSIOLOGY OUTPATIENT VISIT DATE August 19, 2023 OUTPATIENT VISIT TYPE NEW PRIMARY CARE PHYSICIAN: Coleen Ring [facility] [address] [place] [address] REFERRING PHYSICIAN: SELF CARD New Patient Consult (Sas Statistical Programmer ref for a-fib) HISTORY OF PRESENT ILLNESS: Laquita Dobson is a 63 year old year old [...] 150s it persisted and so went to [place] emergency room. There she was diagnosed as [...] - No joint (more content not included)... [facility] 07-25-2023 Note HNO ID: [id number] Author: Vicki Villegas APRN.COMBINER Service: Anesthesiology Author Type: Nurse Slot Machine Mechanic Type: Anesthesia Procedure Notes Filed: 07/25/2023 8:24 AM Note Text: ANESTHESIOLOGY PROCEDURE NOTE Airway General Information Procedure Start Time/Medication Administration: 07/25/2023 8:13 AM Patient location during procedure: OR Timeout Performed Pre-procedure: timeout performed Patient identity confirmed: arm band Staffing Anesthesiologist: Epifanio Choe MD COMBINER: Vicki Villegas APRN.COMBINER Performed by: SEA Indications and Patient Condition Indications for airway management: anesthesia Preoxygenated: yes anesthesia circuit Patient position: sniffing Method: asleep Final Airway Details Final airway type: endotracheal airway Final Endotracheal Airway: ETT Cuffed: yes Successful intubation technique: video laryngoscopy Devices used: WeDuc Endotracheal tube insertion site: oral Blade: Cathy Blade size: #3 ETT size (mm): 7.5 Measured from: lips Measurement (cm): 22 Placement verified by: chest auscultation and capnometry Cormack-Lehane Classification: grade I - full view of glottis Number of attempts at approach: 1 SIGNATURE: Vicki Villegas APRN.CRNA PATIENT NAME: Laquita Dobson DATE: July 25, 2023 TIME: 8:23 AM CSN: [id number] [facility] 07-19-2023 Note HNO ID: [id number] Author: Riya Hawley Service: ? Author Type: ? Type: Progress Notes Filed: 07/19/2023 10:18 AM Note Text: DATE OF SERVICE: 07/19/2023 PROBLEM: Laquita Dobson presents for pre-op teaching. PRE-OP DIAGNOSIS: Rectocele SCHEDULED SURGERY AND DATE: 07/25/23 posterior colporrhaphy, perineorrhaphy, possible SSLS, cystoscopy, procedures as indicated at [facility] PRIMARY SURGEON: Louie Chavez MD NURSING PREOP ASSESSMENT: Fevers, chills, cough, or nasal congestion: No Vaginal itching, burning, discharge, or odor: No Pain with urination, frequency, urgency, cloudy or foul smelling urine: No If yes to any of the above then MD notified: Not Applicable ADVANCED CARE PLANNING: Does the patient have an advanced directive: No Does [facility] have a copy of the patient's advanced [...] prescribed by anesthesia, internal medicine, surgeon, or RADIO INTELLIGENCE OPERATOR Stop NSAIDs, Aspirin (ASA), vitamins, herbal supplements, [...] jewelry, body piercing, makeup, contacts, lotions, nail citizen of [place] on fingers, or anything in hair on arrival to surgery Wear low healed shoes and loose fitting clothing Leave all valuables at home or with a family member Directions to [facility] Parking/parking validation on the day prior to [...] - IV pain medication after surgery, IV COMMERCIAL ROOFING ESTIMATOR if ordered by MD, discharged home with [...] if after hours patient instructed to call blanker press operator and ask for extrusion manager obstetrics gyn resident. REE program offered to patient: (more content not included)... [facility] 07-19-2023 History of Presen t illness Narrative DATE OF SERVICE: 07/19/2023 PROBLEM: Laquita Dobson presents for pre-op teaching. PRE-OP DIAGNOSIS: Rectocele SCHEDULED SURGERY AND DATE: 07/25/23 posterior colporrhaphy, perineorrhaphy, possible SSLS, cystoscopy, procedures as indicated at [facility] PRIMARY SURGEON: Louie Chavez MD NURSING PREOP ASSESSMENT: Fevers, chills, cough, or nasal congestion: No Vaginal itching, burning, discharge, or odor: No Pain with urination, frequency, urgency, cloudy or foul smelling urine: No If yes to any of the above then MD notified: Not Applicable ADVANCED CARE PLANNING: Does the patient have an advanced directive: No Does [facility] have a copy of the patient's advanced [...] prescribed by anesthesia, internal medicine, surgeon, or RADIO INTELLIGENCE OPERATOR Stop NSAIDs, Aspirin (ASA), vitamins, herbal supplements, [...] jewelry, body piercing, makeup, contacts, lotions, nail citizen of [place] on fingers, or anything in hair on arrival to surgery Wear low healed shoes and loose fitting clothing Leave all valuables at home or with a family member Directions to [facility] Parking/parking validation on the day prior to [...] - IV pain medication after surgery, IV COMMERCIAL ROOFING ESTIMATOR if ordered by MD, discharged home with [...] if after hours patient instructed to call blanker press operator and ask for extrusion manager obstetrics gyn resident. REE program offered to patient: No Additional teaching as indicated by patient/family learning needs. PATIENT LEARNING EVALUATION & FOLLOW UP PLAN: Patient and/or family express understanding of upcoming surgery, pre-operative preparation, the operative process, and post-operative instructions. Follow up plan: Complete - No need for follow-up Patient has a post-op appointment scheduled: Yes Referral (recommentation): None Educator: Riya Hawley [facility] documented in this encounter [facility] 07-19-2023 Instructions Riya Hawley - 07/19/2023 8:15 AM EST Images from [...] not wear jewelry, body piercing(s), makeup, nail citizen of [place], hairpins, or contacts on the day of [...] expanding your lungs while in the hospital. [facility] At the [facility], we have a multidisciplinary team of caregivers that includes fellows, residents, nurse practitioners (wallpaperer), physician assistants (PAs), clinical nurse specialists (CNSs), nurses, medical assistants (MAs), patient care nursing assistants (PCNAs), social workers, casework supervisor and many others. We all have different [...] SURGERY If you are having surgery at [facility] [place]: On the day before your surgery, you must call [phone] to find out your surgery arrival time. If you are having surgery at a [facility] hospital ([facility], Ambulatory surgery center, [facility]): You will receive a call the day before surgery to give you your surgery arrival time. THE DAY OF SURGERY/CHECK IN Surgery Location Parking Check-in Location Main [place] [address] P Garage P-20 surgery center (unless otherwise instructed) [facility] [address] [place], [place] Parking garage connected to hospital or cardiac cath lab radiology technologist Registration desk, first floor, main lobby [facility] [address] [place], [place] Parking lot in front of building [address] (elevator to lower level) [facility] [address] [place], [place] Parking garage next to hospital or [facility] Atrium, Surgical Waiting Desk [facility] [address] [facility] [place], [place] Parking garage across from main entrance. Main entrance [facility] [address], [place] Park in the back of the [...] to dispose of unused medications at three [facility] locations: [facility] pharmacy, [facility] pharmacy, and the Pharmacy at the Main [place] for [facility] (inside the parking garage on the first [...] answering service to speak with the doctor extrusion manager. Dr. Louie Chavez Please DO NOT use [facility] for post-surgery concerns. documented in this encounter [facility] 07-18-2023 Note HNO ID: [id number] Author: Eliza Guzman APRN.TURNER OFF Service: General Surgery Author Type: Nurse Practitioner Type: Progress Notes Filed: 07/22/2023 9:24 AM Note Text: Summary: anesthesia Reviewed patient health history, METS 5.50, elevated BP in PAT of 193/106 with repeat 190/[address] Callejas in anesthesia. Per Dr. Callejas, OK to proceed with procedure as planned. Will evaluate BP DOS. [facility] 07-15-2023 Note HNO ID: [id number] Author: Ashley Malhotra APRN.TURNER OFF Service: ? Author Type: Nurse Practitioner Type: [...] 100% BMI 37.81 kg/(m2). Recheck BP 190/90 [facility] 07-15-2023 History of Presen t illness Narrative [...] Recheck BP 190/90 documented in this encounter [facility] 07-15-2023 History and physical note HISTORY AND [...] Post Procedure Analgesic Plan REASON FOR VISIT: Laquita Dobson is a 63 year old female who [...] Imm Admin: COVID-19 vaccine, age 12+ yr, 2022- season (PFIZER-BIONTFlyReadyJet) 06/08/2022 Imm Admin: COVID-19 vaccine, age 12+ yr, bivalent (PFIZER-BIONTECH) 07/29/2021 Imm Admin: COVID-19 original vaccine, age 12+ yr, monovalent (PFIZER-BIONTECH - PURPLE TOP) Only the first 3 [...] pain, nausea and vomiting. : See HPI. PACK TRAIN DRIVER: See HPI. Endocrine: Hypothyroid Negative for: diabetes [...] which included preparing to see the patient, qyge-he-bvft patient care, completing clinical documentation, obtaining and/or reviewing separately obtained history, performing a medically appropriate examination, and counseling and educating the patient/family/caregiver. Instructions Given to Patient: Instructions located in the after visit summary. Patient given verbal and written preop instructions and voices comprehension and compliance. SIGNATURE: Ashley Malhotra APRN.CNP PATIENT NAME: Laquita Dobson DATE: July 15, 2023 TIME: 9:34 AM PAGER/CONTACT #: documented in this encounter [facility] 07-14-2023 Instructions Ashley Malhotra APRN.CNP - 07/14/2023 10:02 AM EST PATIENT PREOPERATIVE INSTRUCTIONS Louie Chavez MD has scheduled you for your procedure at this surgery center: [facility]: [phone], [address] [place] [address] Please read below carefully for your personalized [...] sure you have your arrival time by Tuesday afternoon. Blood Thinning Medications: - Stop NSAIDS [...] older. - YOU MUST HAVE A RESPONSIBLE PROSPECTING DRILLER TO TAKE YOU HOME. A HUMAN RESOURCES SAFETY MANAGER, CAB OR UBER PROSPECTING DRILLER CANNOT BE MADE A RESPONSIBLE PROSPECTING DRILLER. - You cannot stay in a hotel alone after outpatient surgery. You will not be permitted to have your surgery, if you do not have someone to take care of you. [facility]AG- Visitations are: Visitation hours are from 7 [...] for after surgery you may. Ashley Malhotra APRN.TURNER OFF documented in this encounter [facility] 06-22-2023 Note HNO ID: [id number] Author: Louie Chavez MD Service: ? Author Type: Physician Type: Progress Notes Filed: 06/22/2023 3:54 PM Note Text: Female Pelvic Medicine AND Reconstructive Surgery Consult CHIEF COMPLAINT: Laquita Dobson is a 63 year old referred for [...] her family history. 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 [facility] 06-22-2023 Nurse Note Patient's BP was 177/93, rechecked at end of visit 179/96. Provider notified. Asymptomatic. Patient states she has white coat syndrome. She takes Lisinopril 20mg. Patient advised to schedule BP check within 30 days.. documented in this encounter [facility] 06-22-2023 Instructions Louie Chavez MD - 06/22/2023 [...] from stool softener* documented in this encounter [facility] 06-22-2023 History of Presen t illness Narrative Female Pelvic Medicine & Reconstructive Surgery Consult CHIEF COMPLAINT: Laquita Dobson is a 63 year old referred for [...] her family history. 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 IMPRESSION: Laquita Dobson is a 63 year old female with: [...] physical activity limitations after surgery. Consent signed, surgical instrument repair specialist to call. 2. Mixed UI, urge component [...] of miralax and metamucil discussed and recommended radiologic technology program director to call Louie Chavez MD documented in this encounter [facility] 05-19-2023 Note HNO ID: [id number] Author: Lisa Tsang APRN.TURNER OFF Service: ? Author Type: Nurse Practitioner Type: Progress Notes Filed: 05/19/2023 12:47 PM Note Text: Playground Official offered: Patient declines. 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 Author Type: Ladle Cleaner Type: Progress Notes Filed: 05/06/2023 8:07 AM Note Text: Radiology Service Progress Note PATIENT NAME: Laquita Dobson DATE OF SERVICE: May 06, 2023 TIME: [...] Uday Lovell May 06, 2023 7:53 AM [facility] 05-06-2023 History of Presen t illness Narrative Radiology Service Progress Note PATIENT NAME: Laquita Dobson DATE OF SERVICE: May 06, 2023 TIME: [...] PERIPHERAL IV DATA: Not applicable SIGNED BY: Beny Lovello Clint May 06, 2023 7:53 AM documented in this encounter [facility] 04-27-2023 Note HNO ID: [id number] Author: Carloz Philip RT(R) Service: ? Author Type: Technologist Type: Progress Notes Filed: 04/27/2023 10:40 AM Note Text: Radiology Service Progress Note PATIENT NAME: Laquita Dobson DATE OF SERVICE: April 27, 2023 TIME: [...] IV DATA: Not applicable SIGNED BY: RT Laura(R) April 27, 2023 10:30 AM [facility] 04-27-2023 History of Presen t illness Narrative Radiology Service Progress Note PATIENT NAME: Laquita Dobson DATE OF SERVICE: April 27, 2023 TIME: [...] IV DATA: Not applicable SIGNED BY: RT Laura(R) April 27, 2023 10:30 AM documented in this encounter [facility] 04-06-2022 Instructions Lisa Tsang APRN.[facility] - 04/06/2022 10:01 AM EDT Calcium and [...] salmon and sardines and vegetables, such as Persian cabbage, kale, and broccoli. Foods fortified with [...] acid, calcium carbonate is found in some ichv-vfo-kkvpzgu antacid products, such as Tums and Rolaids [...] by your doctor. 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 History Comments: Sexual Activity: Yes; Male; hysterectomy Contraception: Surgical PAST MEDICAL HISTORY Diagnosis Date Broken ankle fracture Broken foot H/O thyroid nodule Hypertension Hypothyroid PAST SURGICAL HISTORY Procedure Laterality Date HYSTEROSCOPY, DIAGNOSTIC (SEPARATE Hysteroscopy PAST SURGICAL HISTORY OF 02/2013 repair foot/ankle fracture REMOVAL ADENOIDS,PRIMARY,<12 Y/O Adenoidectomy REMOVAL OF TONSILS,<12 Y/O Tonsillectomy TOTAL ABDOM HYSTERECTOMY 2000 Hysterectomy, TAHBSO FAMILY HISTORY Adopted: Yes [...] external genitalia normal, normal Bartholin's glands, urethra, Gillis's glands, no vulvar lesions, physiologic discharge present, [...] Lisa Tsang APRN.KD documented in this encounter [facility] 04-02-2022 Miscellaneous Notes April 02, 2022 PID: [id number] Laquita Dobson [address] [place] [address] Dear Ms. Dobson, We are pleased to inform you that [...] report will be kept on file at [facility] as part of your permanent medical record and are available for your continuing care. Thank you for allowing us to help in meeting your health care needs. Sincerely, Dr. Mccormick Interpreting Radiologist [facility] (Normal over 40) documented in this encounter [facility] 01-21-2022 Miscellaneous Notes Patient still weaning down and does not need a refill. Mary Loo RN] Left message to call office. Please ask patient if she is still taking this medication. Mary Loo RN Refill request received from pharmacy. Patient last seen for annual exam on 04/03/21. Mary Loo RN documented in this encounter [facility] documented in this encounter [facility] Diagnosis Encounter for gynecological examination (general) (routine) without abnormal findings Encounter for screening mammogram for breast cancer [facility] Diagnosis Encounter for gynecological examination with abnormal finding- Primary Routine gynecological examination Encounter for screening mammogram for breast cancer Rectocele Asymptomatic postmenopausal state Encounter for screening for osteoporosis Special screening for osteoporosis [facility]* Diagnosis 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 Mixed incontinence urge and stress (male)(female) Rectocele Cystocele, midline Vaginal vault prolapse Unspecified prolapse of vaginal casatneda Constipation, unspecified constipation type documented [facility]* Diagnosis Encounter for gynecological examination with abnormal finding Routine gynecological examination Encounter for screening mammogram for breast cancer documented in this encounter [facility] note* Diagnosis Asymptomatic postmenopausal state Encounter for screening for osteoporosis Special screening for osteoporosis [facility]* Diagnosis Rectocele [N81.6]- Primary Rectocele Preop examination Preoperative examination, unspecified Elevated blood pressure reading without diagnosis of hypertension Obesity, Class II, BMI 35-39.9 Obesity, unspecified Rectocele Vaginal vault prolapse Unspecified prolapse of vaginal castaneda documented [facility] this [facility]* Diagnosis Educational circumstance- Primary Rectocele Vaginal vault prolapse Unspecified prolapse of vaginal castaneda documented in this encounter [facility] note* Diagnosis Post-operative state- Primary Other postprocedural status Superficial dyspareunia documented [facility] this [facility] Diagnostic Procedure Only (Routine) - Closed Specialty Diagnoses / Procedures Referred By Artemio quinonez Referred To Contact [facility] Diagnoses Encounter for gynecological examination (general) (routine) without abnormal findings Encounter for screening mammogram for breast cancer Procedures SUDHA SCREENING SCREENING MAMMOGRAPHY BI 2-VIEW BREAST INC Lisa Jiang, STAMP MACHINE SERVICER.TURNER OFF [address] [place] [address] [facility] [address] [place] [address] Referral ID Status Reason Start Date Expiration Date V isits Requested Visits Authorized [id number] Closed Auto-Generate d Referral 04/03/2021 05/03/2022 1 1 T [facility] for referral (narrative)* Diagnostic Procedure Only (Routine) - Pending Review Specialty Diagnoses / Procedures Referred By Contac t Referred To Contact [facility] Diagnoses Encounter for gynecological examination with abnormal finding Encounter for screening mammogram for breast cancer Procedures SUDHA SCREENING SCREENING MAMMOGRAPHY BI 2-VIEW BREAST INC Lisa Jiang APRN.CNP [address] [place] [place] [address] [facility] [address] [place] [address] Referral ID Status Reason Start Date Expiration Date Visits Requested Visits Authorized [id number] Pending Review Auto-Generat ed Referral 04/06/2022 05/06/2023 1 1 [facility] for referral (narrative)* Diagnostic Procedure Only (Routine) - Closed Specialty Diagnoses / Procedures Referred By Contac t Referred To Contact [facility] Diagnoses Encounter for gynecological examination with abnormal finding Encounter for screening mammogram for breast cancer Procedures SUDHA SCREENING SCREENING MAMMOGRAPHY BI 2-VIEW BREAST INC Lisa Jiang APRN.TURNER OFF [address] [place] [address] [facility] [address] [place] [address] Referral ID Status Reason Start Date Expiration Date V isits Requested Visits Authorized [id number] Closed Auto-Generate d Referral 04/06/2022 05/06/[address] [facility] for visit Narrative* Diagnostic Procedure Only (Routine) - Closed Specialty Diagnoses / Procedures Referred By Contac t Referred To Contact [facility] Diagnoses Encounter for gynecological examination (general) (routine) without abnormal findings Encounter for screening mammogram for breast cancer Procedures SUDHA SCREENING SCREENING MAMMOGRAPHY BI 2-VIEW BREAST INC Lisa Jiang APRN.CNP [address] [place] [address] [facility] [address] [place] [address] Referral ID Status Reason Start Date Expiration Date V isits Requested Visits Authorized [id number] Closed Auto-Generate d Referral 04/03/2021 05/03/2022 1 1 [facility] Narrative* Diagnostic Procedure Only (Routine) - Closed Specialty Diagnoses / Procedures Referred By Artemio quinonez Referred To Contact [facility] Diagnoses Encounter for gynecological examination with abnormal finding Encounter for screening mammogram for breast cancer Procedures SUDHA SCREENING SCREENING MAMMOGRAPHY BI 2-VIEW BREAST INC Lisa Jiang, STAMP MACHINE SERVICER.TURNER OFF [address] [place] [place] [address] [facility] [address] [facility] [address] Referral ID Status Reason Start Date Expiration Date V isits Requested Visits Authorized [id number] Closed Auto-Generate d Referral 04/06/2022 05/06/2023 1 1 [facility] Summary Purpose Family History No Family History Records FoundNo Family History Records FoundNo Family History Records Found Advance Directives No Advanced Directives Records FoundNo Advanced Directives Records FoundNo Advanced Directives Records Found Reason for Referral Specialty Diagnoses / Procedures Referred By Artemio quinonez Referred To Contact Diagnoses Rectocele Cystocele, midline Vaginal vault prolapse Procedures REFER TO PACC - PRE ANESTHESIA CONSULTATION CLINIC OFFICE/OUTPATIENT [facility] MDM 60-74 MINUTES Louie Chavez MD [address] [address] Referral ID Status Reason Start Date Expiration Date Visits Requested Visits Authorized [id number] Authorized PCP Requested Referral 3 06/21/2024 1 1 Additional Source Comments INFORMATION SOURCE (unrecogn ized section and content) DATE CREATED AUTHOR AUTHOR'S ORGANIZ ATION 09/17/2023 [facility] DATE CREATED AUTHOR AUTHOR'S ORGANIZ ATION 09/25/2023 [facility] Source Comments (unrecognize d section and content) In the event this informatio n is protected by the Federal Confidentiality of Alcohol and Drug Abuse Patient Records regulations: The Federal rules restrict any use of the information to criminally investigate or prosecute any alcohol or drug abuse patient.[facility] the event this information is protected by the Federal Confidentiality of Alcohol and Drug Abuse Patient Records regulations: The Federal rules restrict any use of the information to criminally investigate or prosecute any alcohol or drug abuse patient.[facility] Shaw[facility] the event this information is protected by the Federal Confidentiality of Alcohol and Drug Abuse Patient Records regulations: The Federal rules restrict any use of the information to criminally investigate or prosecute any alcohol or drug abuse patient.[facility] Shaw[facility] the event this information is protected by the Federal Confidentiality of Alcohol and Drug Abuse Patient Records regulations: The Federal rules restrict any use of the information to criminally investigate or prosecute any alcohol or drug abuse patient.[facility] Shaw[facility] the event this information is protected by the Federal Confidentiality of Alcohol and Drug Abuse Patient Records regulations: The Federal rules restrict any use of the information to criminally investigate or prosecute any alcohol or drug abuse patient.[facility] Shaw[facility] the event this information is protected by the Federal Confidentiality of Alcohol and Drug Abuse Patient Records regulations: The Federal rules restrict any use of the information to criminally investigate or prosecute any alcohol or drug abuse patient.[facility] ShawIn the event this information is protected by the Federal Confidentiality of Alcohol and Drug Abuse Patient Records regulations: The Federal rules restrict any use of the information to criminally investigate or prosecute any alcohol or drug abuse patient.[facility] Shaw[facility] the event this information is protected by the Federal Confidentiality of Alcohol and Drug Abuse Patient Records regulations: The Federal rules restrict any use of the information to criminally investigate or prosecute any alcohol or drug abuse patient.[facility] ShawIn the event this information is protected by the Federal Confidentiality of Alcohol and Drug Abuse Patient Records regulations: The Federal rules restrict any use of the information to criminally investigate or prosecute any alcohol or drug abuse patient.[facility] ShawIn the event this information is protected by the Federal Confidentiality of Alcohol and Drug Abuse Patient Records regulations: The Federal rules restrict any use of the information to criminally investigate or prosecute any alcohol or drug abuse patient.[facility] ShawIn the event this information is protected by the Federal Confidentiality of Alcohol and Drug Abuse Patient Records regulations: The Federal rules restrict any use of the information to criminally investigate or prosecute any alcohol or drug abuse patient.[facility] Reason for Visit (unrecogniz ed section and content) Reason Comments [facility] Specialty Diagnoses / Procedures Referred By Artemio quinonez Referred To Contact Diagnoses Rectocele Cystocele, midline Procedures CONSULT TO URO GYNECOLOGY OFFICE/OUTPATIENT NEW HIGH MDM 60-74 MINUTES Lisa Tsang APRN.TURNER OFF [address] [place] [address] Referral ID Status Reason Start Date Expiration Date V isits Requested Visits Authorized [id number] Closed PCP Requested Referral Auto-Generated Referral 05/19/2023 05/18/2024 1 1 Reason Comments Pre-Op Teaching Care Teams (unrecognized sec tion and content) Education And Training Manager Relationship Specialty Start Date End Date Brian Owens MD [address] [place] [address] PCP - General 04/22/04 Education And Training Manager Relationship Specialty Start Date End Date Brian Owens MD [address] [place] [address] PCP - General 04/22/04 Education And Training Manager Relationship Specialty Start Date End Date Brian Owens MD [address] [place], [place] [address] PCP - General 04/22/04 Education And Training Manager Relationship Specialty Start Date End Date PhysiciansJhonathan [place] PCP - General 05/19/23 Education And Training Manager Relationship Specialty Start Date End Date Brain Owens MD [address] [facility] [place] [address] PCP - General 04/22/04 05/18/23 Education And Training Manager Relationship Specialty Start Date End Date Brian Owens MD [address] [facility] [address] PCP - General 04/22/04 05/18/23 Education And Training Manager Relationship Specialty Start Date End Date PhysiciansJ[place] PCP - General 05/19/23 Education And Training Manager Relationship Specialty Start Date End Date PhysiciansJhonathan[place], [place] PCP - General 05/19/23 Education And Training Manager Relationship Specialty Start Date End Date Coleen Gonzalez DO [address] [place] [address] PCP - General Family Medicine 07/25/23 FOR RECORDS PERTAINING TO PATIENTS WHO ARE [...] BE BASED ON THE PRIMARY CLINICAL RECORDS. [facility] [employer] [facility]. provides no warranty or guarantee of the accuracy or completeness of information in this document.
--- NOTE | 2023-10-27 15:54 | STRESSREP ---
Stress Test Report Date: 10/26/2023 Procedure: Exercise tolerance test Indications: Arrhythmia Consent: Per the patient Procedure: The patient exercised on a Tyson protocol for 6 minutes and 30 seconds achieving a peak heart rate of 125 bpm (80% predicted maximal heart rate) with a peak blood pressure 190/70 mmHg and a peak MET capacity of approximately 8.5 MET's. The baseline ECG demonstrated sinus rhythm. The peak exercise ECG demonstrated no ischemic changes. There were no cardiac dysrhythmias pretest, during exercise, or recovery. The functional capacity was considered average. The patient had no complaints of chest discomfort during exercise or recovery. The examination was discontinued secondary to dyspnea. Impression: 1. Technically adequate exercise tolerance test 2. Peak exercise ECG with no ischemic changes 3. There were no cardiac dysrhythmias during exercise or recovery This note was generated with [employer] software. It may contain incorrect words, spelling, and punctuation that were not noted in checking the note before signing.
== END | disposition home or self-care (01) ==
PROVIDERS: PCP Family Medicine; Referring Provider Internal Medicine Cardiovascular Disease; Visit Provider Internal Medicine Cardiovascular Disease
DX: I48.0 Paroxysmal atrial fibrillation (principal); I10 Essential (primary) hypertension; E78.5 Hyperlipidemia, unspecified; R06.00 Dyspnea, unspecified
CPT/HCPCS: 93017; 93306; Q9957; A4216; C8929

== ENCOUNTER → 2025-06-20 | Outpatient (CLI) | payer MEDICARE, BC, SELFPAY ==
[2025-06-20 12:05] LABS: AST(SGOT) 24 U/L (<=31); Alanine Aminotransfer ALT/SGPT 26 U/L (<=34); Albumin, Serum 4.4 g/dL (3.4-4.8); Alkaline Phosphatase 80 U/L (35-104); Anion Gap 10 (5-15); BUN 17 mg/dL (4-19); BUN/Creat Ratio 20.0 RATIO (10-20); Calcium,Total 9.6 mg/dL (7.6-11.0); Carbon Dioxide 25.9 mmol/L (21.0-32.0); Chloride 95 mmol/L (98-108); Globulin 2.8 g/dL (2.2-4.2); Glucose 114 mg/dL (70-99); Potassium 4.7 mmol/L (3.3-5.1)
[2025-06-20 13:46] LABS: Cholesterol 175 mg/dL (<=200); Low Density Lipoprotein Calc. 84 mg/dL; Triglycerides 67 mg/dL; Very Low Density Lipoprotein 13 mg/dL (5-40); cholesterol:hdl ratio screen 2.25
== END | disposition home or self-care (01) ==
PROVIDERS: PCP Family Medicine; Referring Provider Physician Assistant Medical; Visit Provider Physician Assistant Medical
DX: E78.5 Hyperlipidemia, unspecified (principal)
CPT/HCPCS: 36415; 80053; 80061